=== PATIENT | female | born 1955 | race Two or more races ===

== ENCOUNTER 2020-05-24 13:24 | Outpatient (REF) | payer OTHER, SELFPAY ==
[2020-05-24 17:24] LABS: COVID-19 Test Negative (Negative)
== END 2020-05-24 13:25 | disposition home or self-care (01) ==
LOC: HO.LAB 13:24
PROVIDERS: PCP Internal Medicine; Visit Provider Internal Medicine
DX: Z20.828 Contact with and (suspected) exposure to other viral communicable diseases (principal)
CPT/HCPCS: 87635

== ENCOUNTER 2020-06-01 07:32 | Outpatient (REF) | payer OTHER, SELFPAY | END 2020-06-01 07:33 | disposition home or self-care (01) | LOC: HO.LAB 07:32 | PROVIDERS: Visit Provider Internal Medicine | DX: Z20.828 Contact with and (suspected) exposure to other viral communicable diseases (principal) | CPT/HCPCS: U0003 ==

== ENCOUNTER 2020-06-01 07:36 | Outpatient (REF) | payer OTHER, SELFPAY | END 2020-06-01 07:37 | disposition home or self-care (01) | LOC: HO.LAB 07:36 | PROVIDERS: Visit Provider Internal Medicine | DX: Z13.89 Encounter for screening for other disorder (principal) ==

== ENCOUNTER → 2020-07-04 09:41 | Outpatient (BNVA) | payer OTHER, SELFPAY | PROVIDERS: PCP Internal Medicine; Visit Provider Internal Medicine Cardiovascular Disease | DX: Z76.89 Persons encountering health services in other specified circumstances (principal) ==

== ENCOUNTER 2020-07-31 08:12 | Outpatient (REF) | payer OTHER, SELFPAY ==
[2020-07-31 08:50] LABS: MANUAL DIFF FLAG NO
[2020-07-31 08:56] LABS: Basophils Percent Auto 0.5 % (0-2); Eosinophils Absolute Auto 0.1 X10*3/uL (0.0-0.4); Hemoglobin 13.4 g/dl (12.0-16.0); Imm Gran Abs Auto 0.02 X10*3/uL (0.00-0.03); Imm Gran Pct Auto 0.4 % (0.0-0.4); Lymphocytes Absolute Auto 1.9 X10*3/uL (1.2-4.9); Lymphocytes Percent Auto 33.9 % (20-40); Mean Corpuscular HGB Conc 31.9 g/dl (31.0-35.0); Mean Corpuscular Hemoglobin 30.9 pg (27.0-33.0); Mean Corpuscular Volume 96.8 fL (80-98); Mean Platelet Volume 9.6 fL (9.4-12.3); Monocytes Absolute Auto 0.5 X10*3/uL (0.1-1.2); Monocytes Percent Auto 9.6 % (2-11); Neutrophils Percent Auto 53.6 % (45-73); Platelet Count 211 X10*3/uL (160-400); Red Blood Count 4.34 X10*6/uL (4.20-5.50); Red Cell Distribution Width 11.4 % (11.0-16.0); White Blood Count 5.6 X10*3/uL (4.8-10.8)
[2020-07-31 09:24] LABS: Alanine Aminotransferase 22 U/L (0-31); Anion Gap 11 (12-20); Aspartate Amino Transferase 23 U/L (5-31); Blood Urea Nitrogen 15 mg/dL (9-16); Calcium 9.1 mg/dL (8.4-10.2); Carbon Dioxide 27 mmol/L (22-29); Chloride 106 mmol/L (96-108); Cholesterol 138 mg/dL; Estimated Glomerular Filt Rate > 60; Glucose Random 125 mg/dL (60-115); HDL Cholesterol 48 mg/dL; LDL Cholesterol Calculated 70 mg/dl; Potassium 4.7 mmol/l (3.3-5.1); Sodium 139 mmol/L (135-145); Triglycerides 102 mg/dL
[2020-07-31 09:35] LABS: Glucose Urine UA NEG (NEG); Leukocyte Esterase Urine NEG (NEG); Nitrite Urine NEG (NEG); PH 5.5 (5.0-8.0); Urine Blood 1+ (NEG); Urine Ketones NEG (NEG); Urine Protein NEG (NEG-TRACE)
[2020-07-31 09:36] LABS: Appearance Urine CLEAR; Color Urine YELLOW
[2020-07-31 09:57] LABS: Mucus Urine TRACE /LPF; RBC Urine 0-2 /HPF (0); Squamous Epithelial Cell Urine TRACE /LPF; WBC Urine 0 /HPF (0-4)
== END 2020-07-31 08:13 | disposition home or self-care (01) ==
LOC: HO.LAB 08:12
PROVIDERS: Visit Provider Internal Medicine
DX: Z00.00 Encounter for general adult medical examination without abnormal findings (principal)
CPT/HCPCS: 36415; 80048; 80061; 81001; 84443; 84450; 84460; 85025

== ENCOUNTER 2020-08-20 13:46 | Outpatient (REF) | payer OTHER, SELFPAY ==
--- NOTE | 2020-08-20 13:56 | XR_ITS ---
EXAMINATION: XR CHEST CLINICAL INFORMATION: Chronic cough. COMPARISON: Chest 12/16/2010 TECHNIQUE: 2 views of the chest were obtained. FINDINGS: The lungs are well-expanded and clear of acute process. The heart size and prevascular is normal. There is mild dextroscoliosis upper/mid dorsal spine. No lytic process. The soft tissues are unremarkable. XR/XR chest 2V IMPRESSION: Unremarkable chest exam.
== END 2020-08-20 13:47 | disposition home or self-care (01) ==
LOC: HO.XRAY 13:46
PROVIDERS: PCP Internal Medicine; Visit Provider Internal Medicine
DX: R05 Cough (principal)
CPT/HCPCS: 71046

== ENCOUNTER 2020-12-25 15:50 | Outpatient (REF) | payer OTHER, SELFPAY ==
--- NOTE | ~2020-12-25 | MM_ITS ---
EXAMINATION: MM SCREENING DIGITAL BREAST TOMOSYNTHESIS, BILATERAL CLINICAL INFORMATION: Screening. Asymptomatic. The lifetime risk of breast cancer based on the Tyrer-Cuzick Model is 4%. COMPARISON: Mammography: 02/09/2018, 10/06/2016, 06/05/2015 TECHNIQUE: Digital breast tomosynthesis is performed in both the craniocaudal and mediolateral oblique views along with computer-aided detection (CAD). Synthesized 2D images are generated from the tomosynthesis. Additional right CC view is provided. FINDINGS: There are scattered areas of fibroglandular density (ACR BI-RADS breast composition Category b). There are no significant masses, abnormal calcifications, or other abnormalities. There is chronic bilateral nipple retraction similar to prior studies. Again, there are scattered benign round, vascular, and rim calcifications, greater on left. The axilla are unremarkable. MM/MM tomosynthesis screening BI IMPRESSION: No mammographic evidence of malignancy. ASSESSMENT: BI-RADS 2: Benign RECOMMENDATION: Routine annual mammography screening. This patient's information was entered into a reminder system with a target due date for their next mammogram.
== END 2020-12-25 15:51 | disposition home or self-care (01) ==
LOC: HO.MAMMO 15:50
PROVIDERS: Visit Provider Internal Medicine
DX: Z12.31 Encounter for screening mammogram for malignant neoplasm of breast (principal)
CPT/HCPCS: 77063; 77067

== ENCOUNTER 2021-05-03 08:50 | Outpatient (REF) | payer OTHER, SELFPAY ==
[2021-05-03 09:28] LABS: COVID-19 Test Negative (Negative)
== END 2021-05-03 08:51 | disposition home or self-care (01) ==
LOC: HO.LAB 08:50
PROVIDERS: PCP Internal Medicine; Visit Provider Internal Medicine
DX: J02.9 Acute pharyngitis, unspecified (principal); Z20.822 Contact with and (suspected) exposure to COVID-19
CPT/HCPCS: 36415; 87635

== ENCOUNTER → 2021-06-04 09:38 | Outpatient (BNVA) | payer OTHER, SELFPAY | PROVIDERS: PCP Internal Medicine; Referring Provider Internal Medicine; Visit Provider Internal Medicine Cardiovascular Disease | DX: I25.10 Atherosclerotic heart disease of native coronary artery without angina pectoris (principal); I10 Essential (primary) hypertension | CPT/HCPCS: 93005 ==

== ENCOUNTER 2021-06-23 09:01 | Emergency (ER) | payer OTHER, SELFPAY ==
--- NOTE | ~2021-06-23 | CT_ITS ---
EXAMINATION: CT HEAD WITHOUT CONTRAST CLINICAL INFORMATION: Dizziness COMPARISON: Previous head CT August 2014 TECHNIQUE: Contiguous axial imaging was performed from the skull base to vertex without intravenous administration of contrast. This CT examination was performed using dose optimization techniques as appropriate, variously including the following: *Automated exposure control *Adjustment of mA and/or kV according to patient size (this includes techniques or standardized protocols for targeted exams where dose is matched to indication/reason for exam; i.e. extremities or head) *Use of iterative reconstruction technique DLP: 620 mGy-cm FINDINGS: There is no evidence of acute intracranial hemorrhage or territorial infarction. No abnormal mass effect or midline shift is seen. Diaz to white matter differentiation is well preserved. No extra-axial fluid collections are identified. The ventricles are normal in size. There is no abnormal attenuation within the brain parenchyma. The osseous structures and soft tissues are normal. The mastoid air cells and visualized portions of the paranasal sinuses are clear. CT/CT head/brain wo con IMPRESSION: Unremarkable exam.
[2021-06-23 09:59] VITALS: BP 184/73; PULSE 60; RESP 18; TEMP 36.5; O2SAT 95; BMI 29.2
--- NOTE | 2021-06-23 11:11 | ECG_ITS ---
Test Reason : DIZZINESS Blood Pressure : / mmHG Vent. Rate : 060 BPM Atrial Rate : 060 BPM P-R Int : 154 ms QRS Dur : 086 ms QT Int : 424 ms P-R-T Axes : 061 014 020 degrees QTc Int : 424 ms Normal sinus rhythm Septal infarct (cited on or before 16-DEC-2010) Abnormal ECG When compared with ECG of 10-MAR-2019 19:15, No significant change was found Referred By: Gerardo Mccormack Electronically Signed By:AVILA GARCIA MD
--- NOTE | 2021-06-23 11:12 | ED.DIZZY ---
HPI - Dizziness General Chief Complaint: Dizziness Stated Complaint: Dizziness/abd pain Time Seen by Provider: 06/23/21 11:05 Source: patient Mode of arrival: ambulatory Limitations: no limitations History of Present Illness HPI Narrative: This is 66 years old of female presented to the emergency department with a chief complaint of dizziness she describes the dizziness as vertigo, symptoms started on about 4 days ago, the denies any vomiting diarrhea. MD elicited complaint: dizziness Onset (ago): day(s) (4) Timing: gradual onset Description: room spinning History of similar symptoms: No Exacerbating factors: nothing Relieving factors: nothing Related Data Home Medications Medication Instructions Recorded Confirmed bupropion HCl 300 mg 24 hr tablet, 300 mg PO DAILY 07/04/20 06/04/21 extended release cholecalciferol (vitamin D3) 25 25 mcg PO DAILY 07/04/20 06/04/21 mcg (1,000 unit) capsule loratadine 10 mg tablet 10 mg PO DAILY PRN 07/04/20 06/04/21 melatonin 1 mg tablet 0.5 mg PO BEDTIME 07/04/20 06/04/21 metoprolol succinate 100 mg 100 mg PO DAILY 07/04/20 06/04/21 tablet,extended release 24 hr omega-3 fatty acids 1,000 mg 1,000 mg PO DAILY 07/04/20 06/04/21 capsule (Fish Oil Concentrate) simvastatin 40 mg tablet 40 mg PO DAILY 07/04/20 06/04/21 Previous Rx's Medication Instructions Recorded lisinopril 10 mg tablet 10 mg PO DAILY 90 Days #90 tab 06/11/21 meclizine 25 mg tablet 25 mg PO TID PRN #15 tab 06/23/21 Allergies Allergy/AdvReac Type Severity Reaction Status Date / Time No Known Allergies Allergy Verified 06/23/21 10:02 Review of Systems Review of Systems: Yes all other systems are reviewed and are negative Constitutional: Constitutional: Denies frequent falls and Denies headache(s) Eyes: Eyes: Denies blurry vision, Denies change in vision, Denies decreased night vision and Denies diplopia ENT: Denies headache(s) Cardiovascular: Cardiovascular: Denies syncope, Denies rapid heart rate and Denies lightheadedness Respiratory: Respiratory: Reports no additional respiratory complaints Gastrointestinal: Gastrointestinal: Denies abdominal pain Neurologic: Denies confusion, Denies syncope, Denies frequent falls and Denies headache(s) Psychiatric: Psychiatric: Denies confusion [facility] Past Medical History Medical History HTN (hypertension) Hyperlipemia Myocardial infarct Surgical History H/O tubal ligation Hx of cardiac cath Hx of tonsillectomy Family History Family History (Updated 07/01/20 @ 11:05 by MARYCHUY Ribeiro) Father CVD (cardiovascular disease) Mother CVD (cardiovascular disease) Social History Social History (Updated 07/04/20 @ 09:54 by MARYCHUY Ribeiro) Alcohol intake: never Patient Tobacco Use Status: Never used Tobacco Use of substances other than those prescribed or required for medical reasons: No Advance Directives: No Advance Directives Information Provided: Yes Physical Exam Vital Signs: Vital Signs: Last Vital Signs Temp 97.7 F 06/23/21 09:59 Pulse 60 06/23/21 09:59 Resp 18 06/23/21 09:59 BP 182/87 H 06/23/21 11:38 Pulse Ox 95 06/23/21 09:59 Body Mass Index 29.2 Const: Other: On examination she looks well she has no toxic-appearing good she is not in distress she testing with her cellphone General: No confusion Nutritional Appearance: average body habitus Orientation/consciousness: No confusion HENMT: Other: To the head eyes ears nose and throat shows no nystagmus, pupils are equally reactive Mouth: Normal oral and palatal mucosa present Neck: Other: Neck is supple Neck: Yes full ROM Chest: Chest palpation & inspection: normal inspection of the chest Resp: Effort & Inspection: normal respiratory effort Auscultation: clear to auscultation bilaterally Cardio: Other: Heart exam is shows a regular rate and rhythm a no murmur GI: Other: Abdomen is soft not tender Skin: General skin exam: no rashes or lesions noted Rashes: no rashes Neuro: Other: Note exam is shows the patient awake alert oriented x3 she has a normal gait patient has a normal [id number], no nystagmus, strength is within normal limit and neuro exam is normal General: No confusion Course Reevaluation(s) Reevaluation #1: I re-examined the patient about 12:27 she is feeling better , workup is negative dizziness is better ,at this point will discharge the patient home , she will follow-up with her primary care physician TOMASZ - Arabella TOLBERT Narrative Medical decision making narrative: This is a 66 years old the wound presented with dizziness described as vertigo we will get a baseline CBC chemistry and electrocardiogram and neuro exam is normal I anticipate discharge if the above tests are normal Lab Data Result diagrams: 06/23/21 11:45 06/23/21 11:45 Labs: Lab Results 06/23/21 06/23/21 06/23/21 Range/Units 11:45 11:45 11:45 WBC 6.5 (4.8-10.8) X10*3/uL RBC 4.36 (4.20-5.50) X10*6/uL Hgb 13.5 (12.0-16.0) g/dl Hct 41.1 (37.0-47.0) % MCV 94.3 (80.0-98.0) fL MCH 31.0 (27.0-33.0) pg MCHC 32.8 (31.0-35.0) g/dl RDW 11.2 (11.0-16.0) % Plt Count 185 (160-400) X10*3/uL MPV 9.7 (9.4-12.3) fL Immature Gran % (Auto) 0.6 H (0.0-0.4) % Neut % (Auto) 61.6 (45-73) % Lymph % (Auto) 28.6 (20-40) % [place] % (Auto) 7.3 (2-11) % Eos % (Auto) 1.4 (0-4) % Baso % (Auto) 0.5 (0-2) % Lymph # (Auto) 1.9 (1.2-4.9) X10*3/uL [place] # (Auto) 0.5 (0.1-1.2) X10*3/uL Eos # (Auto) 0.1 (0.0-0.4) X10*3/uL Baso # (Auto) 0.0 (0.0-0.2) X10*3/uL Abs Immat Gran (auto) 0.04 H (0.00-0.03) X10*3/uL Absolute Neuts (auto) 4.0 (2.0-8.3) x10*3/uL Absolute Nucleated RBC 0.000 (0.0-0.012) X10*3/uL Nucleated RBC % (auto) 0.0 (0.0-0.2) /100WBC Sodium 142 (135-145) mmol/L Potassium 4.2 (3.3-5.1) mmol/L Chloride 109 H (96-108) mmol/L Carbon Dioxide 26 (22-29) mmol/L Anion Gap 11 L (12-20) BUN 11 (9-16) mg/dL Creatinine 0.78 (0.5-1.4) mg/dL Estim Creat Clear Calc 71.2 Estimated GFR > 60 Random Glucose 107 (60-115) mg/dL Calcium 9.1 (8.4-10.2) mg/dL Total Bilirubin 1.2 H (0.0-1.0) mg/dL AST 20 (5-31) U/L ALT 20 (0-31) U/L Alkaline Phosphatase 59 (39-117) U/L Troponin I High Sens 3.8 (<3.5-17.0) ng/L Total Protein 7.0 (6.5-8.0) g/dL Albumin 4.2 (3.5-5.0) g/dL Imaging Data head ct: Radiologist's impression: TECHNIQUE: Contiguous axial imaging was performed from the skull base to vertex without intravenous administration of contrast. This CT examination was performed using dose optimization techniques as appropriate, variously including the following: *Automated exposure control *Adjustment of mA and/or kV according to patient size (this includes techniques or standardized protocols for targeted exams where dose is matched to indication/reason for exam; i.e. extremities or head) *Use of iterative reconstruction technique DLP: 620 mGy-cm FINDINGS: There is no evidence of acute intracranial hemorrhage or territorial infarction. No abnormal mass effect or midline shift is seen. Diaz to white matter differentiation is well preserved. No extra-axial fluid collections are identified. The ventricles are normal in size. There is no abnormal attenuation within the brain parenchyma. The osseous structures and soft tissues are normal. The mastoid air cells and visualized portions of the paranasal sinuses are clear. ? CT/CT head/brain wo con IMPRESSION: Unremarkable exam. Dictated By: Thu Valle MD Signed ECG Data ECG interpretation date: 06/23/21 Pacemaker model: NSR 60 no ischemic changes Discharge Plan Discharge Clinical Impression: Dizziness Patient Disposition: Home, Self-Care Instructions: Dizziness (ED) Prescriptions: New meclizine 25 mg tablet 25 mg PO TID PRN (Reason: dizziness) Qty: 15 RF: 0 No Action lisinopril 10 mg tablet 10 mg PO DAILY 90 Days Qty: 90 RF: 3 metoprolol succinate 100 mg tablet extended release 24 hr 100 mg PO DAILY RF: 0 bupropion HCl 300 mg tablet extended release 24 hr 300 mg PO DAILY RF: 0 simvastatin 40 mg tablet 40 mg PO DAILY RF: 0 loratadine 10 mg tablet 10 mg PO DAILY PRN (Reason: allergies) RF: 0 omega-3 fatty acids [Fish Oil Concentrate] 1,000 mg capsule 1,000 mg PO DAILY RF: 0 cholecalciferol (vitamin D3) 25 mcg (1,000 unit) capsule 25 mcg PO DAILY RF: 0 melatonin 1 mg tablet 0.5 mg PO BEDTIME RF: 0 Referrals: Tonie Cheema MD [Primary Care Provider] - 2 days Stand Alone Forms: Work/School Release
[2021-06-23 11:38] VITALS: BP 182/87
[2021-06-23 11:49] LABS: MANUAL DIFF FLAG NO
[2021-06-23 11:51] LABS: Basophils Percent Auto 0.5 % (0-2); Eosinophils Absolute Auto 0.1 X10*3/uL (0.0-0.4); Eosinophils Percent Auto 1.4 % (0-4); Hematocrit 41.1 % (37.0-47.0); Hemoglobin 13.5 g/dl (12.0-16.0); Imm Gran Abs Auto 0.04 X10*3/uL (0.00-0.03); Imm Gran Pct Auto 0.6 % (0.0-0.4); Lymphocytes Absolute Auto 1.9 X10*3/uL (1.2-4.9); Lymphocytes Percent Auto 28.6 % (20-40); Mean Corpuscular HGB Conc 32.8 g/dl (31.0-35.0); Mean Corpuscular Volume 94.3 fL (80.0-98.0); Mean Platelet Volume 9.7 fL (9.4-12.3); Monocytes Absolute Auto 0.5 X10*3/uL (0.1-1.2); Monocytes Percent Auto 7.3 % (2-11); Neutrophils Percent Auto 61.6 % (45-73); Platelet Count 185 X10*3/uL (160-400); Red Blood Count 4.36 X10*6/uL (4.20-5.50); Red Cell Distribution Width 11.2 % (11.0-16.0); White Blood Count 6.5 X10*3/uL (4.8-10.8)
[2021-06-23 12:09] LABS: Alanine Aminotransferase 20 U/L (0-31); Albumin Level 4.2 g/dL (3.5-5.0); Alkaline Phosphatase 59 U/L (39-117); Anion Gap 11 (12-20); Aspartate Amino Transferase 20 U/L (5-31); Bilirubin Total 1.2 mg/dL (0.0-1.0); Blood Urea Nitrogen 11 mg/dL (9-16); Calcium 9.1 mg/dL (8.4-10.2); Carbon Dioxide 26 mmol/L (22-29); Chloride 109 mmol/L (96-108); Creatinine Clr Calc Pharmacy 71.2; Estimated Glomerular Filt Rate > 60; Glucose Random 107 mg/dL (60-115); Potassium 4.2 mmol/L (3.3-5.1); Sodium 142 mmol/L (135-145)
[2021-06-23 12:11] LABS: Troponin-I High Sensitivity 3.8 ng/L (<3.5-17.0)
== END 2021-06-23 13:02 | disposition home or self-care (01) ==
PROVIDERS: Emergency Provider Emergency Medicine; PCP Internal Medicine
DX: R42 Dizziness and giddiness (principal); I10 Essential (primary) hypertension; E78.5 Hyperlipidemia, unspecified; I25.2 Old myocardial infarction; Z79.899 Other long term (current) drug therapy; Z79.02 Long term (current) use of antithrombotics/antiplatelets
CPT/HCPCS: 36415; 70450; 80053; 84484; 85025; 93005; 99284

== ENCOUNTER 2021-07-21 14:30 | Outpatient (RCR) | payer OTHER, SELFPAY ==
[2021-07-17 14:01] VITALS: BP 144/88; PULSE 67
--- NOTE | 2021-07-17 14:57 | MHC.PT.EP ---
[facility] [place] Office [place] Office [place] Office [address] [place] [address] [phone] F: [phone] F: [phone] F: [phone] F: [phone] Physical Therapy Plan of Care Date of Evaluation: Date of Surgery: NA Diagnosis: Dizziness and giddiness Assessment: Caitlin is a 66 year old female who is referred to PT for dizziness and giddiness . Pt reports of having symptoms of room spinning dizziness for about 3-4 weeks. Her symptoms are present with rolling in the bed, looking up, down and walking. She initially had nausea and vomiting. Her symptoms only last for a few seconds. On PT examination she presented with intact saccades, smooth pursuit, visual tracking, head thrust, negative VBI and DVA- WNL. She presented with intact static and dynamic balance. She was positive for nystagmus and vertigo [facility]. She would benefit from skilled PT to address the aforementioned impairments. Frequency and Duration: The patient will be seen 2/week for 4 weeks Short Term Goals: Patient to be educated on symptoms and indications to return to therapy when needed min 4 weeks. Pt will be negative for nystagmus or reports of vertigo in all diagnostic positions bilaterally to resolution of BPPV in 4 weeks. Fpc Goals: Patient to be able to functionally move in all planes and directions without provocation of dizziness to show return to PLOF in 6 weeks. Treatment Plan: Modalities to reduce pain, spasms and effusion. Manual therapy to restore motion and function. Therapeutic exercise to improve strength and flexibility. Neuromuscular re-education for posture and balance. Therapeutic activities to return to functional activities of daily living. Electronically signed by: Mary Alice Patel PT DPT Please sign and return to therapist. Thank you for your referral.
--- NOTE | 2021-09-02 14:14 | MHC.PT.DC ---
[facility] [place] [facility] [place] [facility] [place] Office [address] [place] [address] [facility] [phone] F: [phone] F: [phone] F: [phone] F: [phone] Physical Therapy Discharge Report Diagnosis: Dizziness and giddiness Date of Surgery: NA Date of Evaluation: 07/17/21 Date of Discharge: 09/02/21 Treatments to Date: 2 Cancellations to Date: 0 No Shows to Date: Discharge Status: Achieved Goals Improved Function Discharge Summary: Caitlin has been asymptomatic for vestibular dysfunction over the last one month. She has therefore been d/c from therapy. Electronically signed by: Mary Alice Patel PT DPT Please sign and return to therapist. Thank you for your referral.
== END 2021-09-02 14:16 | disposition home or self-care (01) ==
LOC: HO.PT 14:30
PROVIDERS: PCP Internal Medicine; Visit Provider Internal Medicine
DX: R42 Dizziness and giddiness (principal)
CPT/HCPCS: 95992; 97112; 97161

== ENCOUNTER 2021-10-10 08:23 | Outpatient (REF) | payer OTHER, SELFPAY ==
[2021-10-10 09:40] LABS: Alanine Aminotransferase 21 U/L (0-31); Anion Gap 12 (12-20); Aspartate Amino Transferase 23 U/L (5-31); Blood Urea Nitrogen 11 mg/dL (9-16); Calcium 9.7 mg/dL (8.4-10.2); Carbon Dioxide 26 mmol/L (22-29); Chloride 106 mmol/L (96-108); Cholesterol 164 mg/dL; Estimated Glomerular Filt Rate > 60; Glucose Fasting 111 mg/dL (60-99); HDL Cholesterol 56 mg/dL; LDL Cholesterol Calculated 92 mg/dl; Potassium 4.8 mmol/L (3.3-5.1); Sodium 139 mmol/L (135-145); Triglycerides 82 mg/dL
[2021-10-10 10:08] LABS: Vitamin D 25-OH Total 57.3 ng/mL (>30)
== END 2021-10-10 08:24 | disposition home or self-care (01) ==
LOC: HO.LAB 08:23
PROVIDERS: PCP Internal Medicine; Visit Provider Internal Medicine
DX: Z00.01 Encounter for general adult medical examination with abnormal findings (principal); I10 Essential (primary) hypertension; I25.10 Atherosclerotic heart disease of native coronary artery without angina pectoris
CPT/HCPCS: 36415; 80048; 80061; 82306; 84450; 84460

== ENCOUNTER 2022-01-06 08:57 | Outpatient (REF) | payer OTHER, SELFPAY ==
--- NOTE | ~2022-01-06 | MM_ITS ---
EXAMINATION: BONE DENSITOMETRY CLINICAL INDICATION: Asymptomatic menopausal state. COMPARISON: This is the patient's baseline examination. TECHNIQUE: Using a [employer] DXA System (software version: 13.1) manufactured by [employer], dual-energy x-ray absorptiometry was performed of the lumbar spine and left hip. The images are of good technical quality. Summary results are attached. FINDINGS: AP SPINE L1-L3 (excluding L4): The data of L1-L4 has been changed to exclude the L4 vertebral body, because and sclerosis at this level may cause overestimation of lumbar spine density. BMD 0.972 g/cm2, Z-score -0.5, T-score -1.7, osteopenia. LEFT FEMUR, NECK: BMD 0.899 g/cm2, Z-score 0.3, T-score -1.0, normal. LEFT FEMUR, TOTAL: BMD 0.942 g/cm2, Z-score 0.5, T-score -0.5, normal. IDENTIFIED RISK FACTORS: Menopause. HISTORY OF FRACTURE: None listed. MEDICATIONS: Vitamin D. MM/XR DEXA axial skeleton IMPRESSION: 1. DIAGNOSIS: Osteopenia based on the lowest T-score value of -1.7 in the lumbar spine applying World Health Organization criteria. 2. 10-YEAR FRACTURE RISK PREDICTION, FRAX: Major osteoporotic fracture (clinical spine, forearm, hip or shoulder) 4.5%. Hip fracture 0.4%. 3. Treatment Recommendations: NOF guidelines recommend consideration for treatment in postmenopausal women and men age 50 and older presenting with the following: -A hip or vertebral (clinical or morphometric) fracture. -T-score less than or equal to -2.5 at the femoral neck or spine after appropriate evaluation to exclude secondary causes. -Low bone mass at the hip or spine and a 10-year fracture probability by FRAX of greater than or equal to 3% for hip fracture or greater than or equal to 20% for major osteoporotic fracture based on the [place] adapted WHO algorithm. 4. Other Recommendations: All treatment decisions require clinical judgment and consideration of individual patient factors, including patient preferences, comorbidities, previous drug use, risk factors not captured in the FRAX model (e.g. frailty, falls, vitamin D deficiency, increased bone turnover, interval significant decline in bone density) and possible under or overestimation of fracture risk by FRAX. Additional medical evaluation for secondary cause of low bone mineral density may be appropriate. FUTURE SCAN RECOMMENDATION: People with diagnosed cases of osteoporosis or at high risk for fracture should have regular bone mineral density tests. For patients eligible for Medicare, routine testing is allowed once every 2 years. The testing frequency can be increased to one year for patients who have rapidly progressing disease, those who are receiving or discontinuing medical therapy to restore bone mass, or have additional risk factors.
--- NOTE | ~2022-01-06 | MM_ITS ---
EXAMINATION: MM SCREENING DIGITAL BREAST TOMOSYNTHESIS, BILATERAL CLINICAL INFORMATION: Screening. Asymptomatic. The lifetime risk of breast cancer based on the Tyrer-Cuzick Model is 3.7%. COMPARISON: Mammography: December 25, 2020 and studies dating back to April 03, 2014 TECHNIQUE: Digital breast tomosynthesis is performed in both the craniocaudal and mediolateral oblique views along with computer-aided detection (CAD). Synthesized 2D images are generated from the tomosynthesis. FINDINGS: There are scattered areas of fibroglandular density (ACR BI-RADS breast composition Category b). There are no significant masses, abnormal calcifications, or other abnormalities. MM/MM tomosynthesis screening BI IMPRESSION: There are no significant changes from prior study. ASSESSMENT: BI-RADS 1: Negative RECOMMENDATION: Routine annual mammography screening. This patient's information was entered into a reminder system with a target due date for their next mammogram.
== END 2022-01-06 08:58 | disposition home or self-care (01) ==
LOC: HO.MAMMO 08:57
PROVIDERS: PCP Internal Medicine; Visit Provider Internal Medicine
DX: Z12.31 Encounter for screening mammogram for malignant neoplasm of breast (principal); Z13.820 Encounter for screening for osteoporosis; Z78.0 Asymptomatic menopausal state
CPT/HCPCS: 77063; 77067; 77080

== ENCOUNTER → 2022-06-03 13:29 | Outpatient (BNVA) | payer OTHER, SELFPAY | PROVIDERS: PCP Internal Medicine; Referring Provider Internal Medicine; Visit Provider Internal Medicine Cardiovascular Disease | DX: I25.10 Atherosclerotic heart disease of native coronary artery without angina pectoris (principal); I10 Essential (primary) hypertension; E78.5 Hyperlipidemia, unspecified; Z98.890 Other specified postprocedural states | CPT/HCPCS: 93005 ==

== ENCOUNTER 2022-06-29 08:19 | Outpatient (REF) | payer OTHER, SELFPAY ==
[2022-06-29 10:06] LABS: Alanine Aminotransferase 19 U/L (0-31); Aspartate Amino Transferase 21 U/L (5-31); Cholesterol 148 mg/dL; HDL Cholesterol 62 mg/dL; LDL Cholesterol Calculated 68 mg/dl; Triglycerides 92 mg/dL; Vitamin D 25-OH Total 49.8 ng/mL (>30)
== END 2022-06-29 08:20 | disposition home or self-care (01) ==
LOC: HO.LAB 08:19
PROVIDERS: PCP Internal Medicine; Referring Provider Internal Medicine Cardiovascular Disease; Visit Provider Internal Medicine
DX: I25.10 Atherosclerotic heart disease of native coronary artery without angina pectoris (principal); I10 Essential (primary) hypertension; E78.5 Hyperlipidemia, unspecified; Z86.59 Personal history of other mental and behavioral disorders
CPT/HCPCS: 36415; 80061; 82306; 84450; 84460

== ENCOUNTER 2022-10-06 07:40 | Outpatient (REF) | payer MEDICARE, SELFPAY ==
[2022-10-06 08:44] LABS: Alanine Aminotransferase 23 U/L (0-31); Anion Gap 10 (12-20); Aspartate Amino Transferase 20 U/L (5-31); Blood Urea Nitrogen 14 mg/dL (9-16); Calcium 9.2 mg/dL (8.4-10.2); Carbon Dioxide 28 mmol/L (22-29); Chloride 108 mmol/L (96-108); Cholesterol 155 mg/dL; Estimated Glomerular Filt Rate > 60; Glucose Fasting 108 mg/dL (60-99); HDL Cholesterol 55 mg/dL; LDL Cholesterol Calculated 86 mg/dl; Potassium 4.9 mmol/L (3.3-5.1); Sodium 141 mmol/L (135-145); Triglycerides 72 mg/dL
[2022-10-06 09:02] LABS: Vitamin D 25-OH Total 42.2 ng/mL (>30)
== END 2022-10-06 07:41 | disposition home or self-care (01) ==
LOC: HO.LAB 07:40
PROVIDERS: PCP Internal Medicine; Visit Provider Internal Medicine
DX: I25.10 Atherosclerotic heart disease of native coronary artery without angina pectoris (principal); I10 Essential (primary) hypertension; E78.5 Hyperlipidemia, unspecified
CPT/HCPCS: 36415; 80048; 80061; 82306; 84450; 84460

== ENCOUNTER 2022-10-08 12:32 | Outpatient (AMB) | payer MEDICARE, SELFPAY ==
--- NOTE | 2022-10-08 13:05 | A.OFFPC_ITS ---
Vital Signs 10/08/22 13:06 Height 5 ft 4 in Weight 165 lb BMI 28.3 BP 140/80 H Blood Pressure Location Rt brachial Position Sitting Pulse 58 Pulse Source Pulse Oximeter Pulse Oximetry (%) 98 Oxygen Delivery Method Room Air Intake Visit Reasons: Annual Intake Note: Pt is here today for her PE Allergies No Known Allergies Allergy (Verified 10/08/22 13:41) Medication List - Last Reconciled 10/08/22 by Tonie Cheema MD aspirin (Adult Low Dose Aspirin) 81 mg PO DAILY atorvastatin 40 mg PO DAILY buspirone 5 mg PO TID cholecalciferol (vitamin D3) 25 mcg PO DAILY lisinopril 10 mg PO DAILY metoprolol succinate ER 100 mg PO DAILY zolpidem 10 mg PO BEDTIME PRN Tobacco use date assessed: 10/08/22 Fall risk assessment: No Falls in past year Last assessed Fall Risk: 10/08/22 HPI Annual HPI Details 68-year-old lady here today for her phys ical exam. She has history of anxiety disorder currently stable controlled on buspirone 5 mg taken 3 times a day, takes zolpidem as needed for insomnia. She has dyslipidemia currently on atorvastatin 40 mg daily and hypertension on lisinopril 20 mg daily and metoprol ol 100 mg once a day. She is due for screening mammogram, has an appointment later this year, and had a bone density scan done 01/06/2022 which showed presence of beginning osteopenia in lumbar spine. No history of fractures. She has history of tubular adenoma removed on colonoscopy [place] [address] Dupont and has diverticulosis and internal hemorrhoids. She also had an upper endoscopy done at that time which showed presence of hiatal hernia [facility] Medical History (Updated 04/09/23 @ 11:02 by Tonie Cheema MD) Impaired fasting glucose History of adenomatous polyp of colon Osteopenia of lumbar spine Insomnia disorder, with non-sleep disorder mental comorbidity Dyslipidemia Anxiety and depression Postmenopause Positional lightheadedness HTN (hypertension) Myocardial infarct Surgical History (Updated 04/09/23 @ 10:54 by Tonie Cheema MD) Hx of colonoscopy H/O tubal ligation Hx of tonsillectomy Hx of cardiac cath Family History Father CVD (cardiovascular disease) Substance use disorder Mother CVD (cardiovascular disease) Brother Substance use disorder Mental health disorder Son Substance use disorder Social History Housing: House Alcohol intake: never Patient Tobacco Use Status: Former Tobacco user e-Cigarette/Vaping Use: Never Used service: No Current occupational status: employed and retired Cognitive needs: No Hearing needs: No Vision needs: Yes Female Reproductive History Menstrual Date of last Bone Density Screenin01/06/22 Questionnaire Thrive Questionnaire Date Thrive assessed: 08/28/22 AUDIT C Alcohol Use Questionnaire (AUDIT-C) 1. How often do you have a drink containing alcohol?: Monthly or less 2. How many drinks containing alcohol do you have on a typical day when you are drinking?: 1 or 2 3. How often do you have six or more drinks on one occasion?: Never Total Score: 1 EDDIE-7 AMB Questionnaire EDDIE-7 Date EDDIE - 7 assessed: 08/28/22 Source: Developed by Drs. Fahad Torres, Ellie Unger, Van Peterson and colleagues, with an educational donavan from [employer]. Review of Systems Const Denies body aches, Denies fatigue, Denies fever(s), Denies headache(s) and Denies weakness Eyes Denies change in vision ENT Denies dizziness, Denies headache(s), Denies nasal congestion, Denies nasal discharge and Denies sore throat Card Denies chest pain, Denies lightheadedness, Denies palpitations and Denies dyspnea Resp Denies chest congestion, Denies cough, Denies dyspnea and Denies wheezing GI Denies abdominal pain, Denies change in bowel habits and Denies heartburn Denies hematuria, Denies urinary frequency, Denies dysuria and Denies urinary u rgency Musc Reports no additional complaints Skin/Breast Denies breast swelling, Denies breast pain, Denies breast mass, Denies lesions and Denies rash Neuro Denies dizziness, Denies headache(s) and Denies weakness Psych Reports no additional complaints Endo Denies fatigue, Denies polydipsia, Denies polyuria and Denies palpitations Preston/Lymph Denies easy bruising Aller/Immun Denies seasonal rhinorrhea and Denies wheezing Physical exam (Primary Care) Vital Signs: Last Vital Signs Pulse 58 10/08/22 13:06 BP 140/80 H 10/08/22 13:06 Pulse Ox 98 10/08/22 13:06 Oxygen Delivery Method Room Air 10/08/22 13:06 BMI result Body Mass Index 28.3 Tobacco/Smoking Status: Tobacco use Status Tobacco use date assessed 10/08/22 10/08/22 13:09 Patient Tobacco Use Status Former Tobacco user 10/08/22 13:09 e-Cigarette/Vaping Use Never Used 10/08/22 13:09 Thrive Assessment: Date of Thrive Assessment Date Thrive assessed 08/28/22 10/08/22 13:09 Advance Care Planning discussion: Completed/Scanned (MOLST) Date of discussion: 10/08/22 Who was present: Patient Forms completed: MOLST Time spent: 16-45 minutes Actual minutes spent: 16 Const Other: Alert oriented x3, no acute cardiorespiratory distress noted ambulatory with normal gait Orientation/consciousness: patient oriented x3 HENMT Head: Yes normocephalic Ears: hearing grossly normal bilaterally, external ears normal, TM's normal bilaterally and EAC's normal General nose exam: No nasal polyps present Face and sinus: Yes face symmetric Mouth: Normal oral and palatal mucosa present, oropharynx normal and moist mucous membranes Eyes General: appearance normal, both eyes and all related structures Neck Neck: Yes full ROM, Yes no lymphadenopathy and Yes supple Chest Breast/axilla palpation: normal palpation of the breasts and normal palpation of the axillae Resp Auscultation: clear to auscultation bilaterally Cardio Other: S1-S2 present regular rate and rhythm GI Inspection: Yes normal to inspection Palpation (GI): Soft to palpation, nontender, no guarding and no masses Auscultation: normal bowel sounds Back/Spine/Pelvis Back: No back tenderness Skin General skin exam: no rashes or lesions noted Neuro General: patient oriented x3, gait normal, moves all extremities, Normal light touch and pain sensation, no focal motor deficits and CN's II-XI intact bilaterally Extrem General: Yes full ROM, Yes no joint enlargement, Yes no clubbing, cyanosis or edema and Yes normal gait Psych Appearance: grossly normal and well kempt Mental Status: mental status grossly normal Speech and movement: Normal speech and movement present Affect: normal affect Attitude: cooperative Thought process: Normal thought process present Immunizations pneumoc 20-lara conj-dip cr(PF) 0.5 mL IM syringe Performing Provider: Tonie Cheema MD [place] [facility] Administered by: Laquita Rodriguez CMA on 10/08/22 14:02 Dose Route Admin Location Dispensed Lot Number Expiration Date NDC Bar Welder 0.5 mL IM Right Deltoid 0.5 mL [id number] 11/30/23 5088-5563-89 [employer]/PFIZER VIS Given Date VIS Provided VIS Publication Date 10/08/22 Single Vaccine 21 Eligibility Eligibility Date Funding Source Not VFC Eligible 10/08/22 Private Results Reviewed Results Reviewed: Name: Caitlin Carlos Age/Sex: 67/F : 1955 Unit#: [id number] Attend Dr: Tonie Cheema MD Re10/06/22 Status: DEP [facility] Dis[facility]: SPEC : [id number] LUKE: 10/06/22 STATUS: COMP REQ : [id number] RECD: 10/06/[address]: Tonie Cheema MD COMP: 10/06/22 ENTERED: 10/06/[address]: ORDERED: Met Prof Fast, AST, ALT, Lipid Panel, Vitamin D 25-OH Test Result Flag Reference Site Sodium 141 135-145 mmol/L Potassium 4.9 3.3-5.1 mmol/L CL 108 96-108 mmol/L CO2 28 22-29 mmol/L Gap 10 L 12-20 BUN 14 9-16 mg/dL Creat 0.73 0.5-1.4 mg/dL EGFR > 60 NOTE: For -[place] individuals, multiply the result by 1.210. Chronic Kidney Disease: Estimated GFR < 60 mL/min/1.73m2 Severe Kidney Disease: Estimated GFR < 15 mL/min/1.73m2 FBS 108 H 60-99 mg/dL A fasting glucose from 100-125 mg/dl is considered impaired (pre-diabetes). CA 9.2 8.4-10.2 mg/dL AST (GOT) 20 5-31 U/L ALT (GPT) 23 0-31 U/L Triglyceride 72 mg/dL Desirable Triglyceride: less than 150 mg/dL Borderline High Triglyceride 150-199 mg/dL High Triglyceride: 200-499 mg/dL Very High Triglyceride: greater than or equal to 5OO mg/dL Chol 155 mg/dL Desirable Cholesterol: less than 200 mg/dL Borderline High Cholesterol: 200-239 mg/dL High Cholesterol: greater than 239 mg/dL LDL Calculated 86 mg/dl Desirable LDL: less than 100 mg/dL Near Optimal/Above Optimal LDL: 110-129 mg/dL Borderline High LDL: 130-159 mg/dL High LDL: 160-189 mg/dL Very High LDL: greater than or equal to 190 mg/dL HDL 55 mg/dL Desirable HDL: greater than 40 mg/dL Note: This HDL assay may give artificially low results in patients with liver disease. Vit D 25-OH Tot 42.2 >30 ng/mL Health Based Reference Values* < 20 ng/mL Deficient 20-30 ng/mL Insufficient > 30 ng/mL Sufficient Assessment and Plan Assessment & Plan (1) Annual visit for general adult medical examination with abnormal findings: Code(s): Z00.01 - Encounter for general adult medical examination with abnormal findings Plan: Recommended dental visit every 6 months and regular eye exams, at least every 2 years. Take adequate calcium in diet and vitamin-D 3 at 2000 IU per cap once a day, in addition to weight-bearing exercises to help maintain good muscle tone and weight control. Instructed to do self-breast exam, and has an appointment to get her yearly mammogram later this year. Up-to-date with her bone density scan done a year ago. Up-to-date with her colonoscopy due [place] [address] Dupont. Reminded to get her yearly flu shot, and COVID booster Prevnar 20 given today (2) Insomnia disorder, with non-sleep disorder mental comorbidity: Code(s): G47.00 - Insomnia, unspecified Plan: Continue zolpidem as needed, advised to have a regular bedtime routine (3) Anxiety and depression: Code(s): F41.9 - Anxiety disorder, unspecified; F32.A - Depression, unspecified Plan: Continued on buspirone 5 mg 1 tablet 3 times a day, stable controlled on present treatment (4) Dyslipidemia: Code(s): E78.5 - Hyperlipidemia, unspecified Plan: Continue for 10 mg of atorvastatin daily in addition to adhering to low- cholesterol diet and exercise (5) Hypertension: Code(s): I10 - Essential (primary) hypertension Qualifiers: Hypertension type: primary hypertension Qualified Code(s): I10 - Essential (primary) hypertension Plan: Blood pressure goal is less than 130/80. Continue with lisinopril 10 mg daily and metoprolol succinate ER 100 mg once a day. Reinforced importance of following a low sodium diet, getting regular exercise, and lowering stress levels. (6) CAD (coronary artery disease): Code(s): I25.10 - Atherosclerotic heart disease of [place] coronary artery without angina pectoris Plan: Continue aspirin 81 mg daily, reinforced importance of following a low- cholesterol diet and getting regular exercise. (7) Advanced directives, counseling/discussion: Code(s): Z71.89 - Other specified counseling Plan: Initiated the conversation about Advanced Directives. Advanced Directives help patients prepare for current and future decisions about their medical treatment and place of care. Discussed with patient that it is a process where a patients current condition and prognosis are reviewed, their wishes for information regarding their illness are elicited, and likely medical dilemmas are presented and options discussed. MOLST form completed today, given a copy of her healthcare proxy form , wishes to discuss this with her family members 1st. The form can be amended as needed, reviewed yearly and make changes as needed (8) Osteopenia of lumbar spine: Code(s): M85.88 - Other specified disorders of bone density and structure, other site Plan: Stressed importance of adhering of getting a regular weight-bearing exercise, to strengthen bones and prevent further bone loss, take adequate calcium from dietary sources and continue taking vitamin D3 at 2000 units daily. Latest vitamin-D levels within normal limits (9) History of adenomatous polyp of colon: Code(s): Z86.010 - Personal history of colonic polyps Plan: Repeat screening colonoscopy again with Dr. Dupont in 2024 (10) Impaired fasting glucose: Code(s): R73.01 - Impaired fasting glucose Plan: Your fasting blood sugar was elevated above 100 mg/dL. Impaired glucose metabolism O2 at risk for developing diabetes mellitus type 2, as well as heart attack and stroke later on. Lifestyle changes at just weight loss, healthy eating habits, and regular exercise are important, and can prevent the progression to diabetes Orders: Orders Pneumococcal 20 Immunization 10/08/22 Z23 - Encounter for immunization Medications: Refilled zolpidem 10 mg PO BEDTIME PRN 14 tabs 0RF insomnia Coding Level of Care Code Est Pt Prev Care >65y(21360) Diagnoses Annual visit for general adult medical examination with abnormal findings Z00.01 Insomnia disorder, with non-sleep disorder mental comorbidity G47.00 Anxiety and depression F41.9; F32.A Dyslipidemia E78.5 Primary hypertension I10 Hypertension type: primary hypertension CAD (coronary artery disease) I25.10 Advanced directives, counseling/discussion Z71.89 Osteopenia of lumbar spine M85.88 History of adenomatous polyp of colon Z86.010 Impaired fasting glucose R73.01 Additional Codes Vital Signs *Quality* - Advance Care Planning discussion: Completed/Scanned ([id number]) Vital Signs *Quality* - Time spent: 16-45 minutes ([id number])
[2022-10-08 13:06] VITALS: BP 140/80; PULSE 58; O2SAT 98; BMI 28.3
== END 2022-10-08 15:22 | disposition home or self-care (01) ==
LOC: HO.HMGC 12:32
PROVIDERS: PCP Internal Medicine; Visit Provider Internal Medicine
DX: Z00.00 Encounter for general adult medical examination without abnormal findings (principal); F41.9 Anxiety disorder, unspecified; I10 Essential (primary) hypertension; Z86.010 Personal history of colon polyps; G47.00 Insomnia, unspecified; F32.A Depression, unspecified; Z23 Encounter for immunization; E78.5 Hyperlipidemia, unspecified; I25.10 Atherosclerotic heart disease of native coronary artery without angina pectoris; Z71.89 Other specified counseling; M85.88 Other specified disorders of bone density and structure, other site; R73.01 Impaired fasting glucose; Z00.01 Encounter for general adult medical examination with abnormal findings
CPT/HCPCS: 1123F; 90471; 90677; 99397; 99497

== ENCOUNTER 2023-01-08 10:11 | Outpatient (REF) | payer MEDICARE, SELFPAY ==
--- NOTE | ~2023-01-08 | MM_ITS ---
EXAMINATION: MM SCREENING DIGITAL BREAST TOMOSYNTHESIS, BILATERAL CLINICAL INFORMATION: Screening. Asymptomatic. The lifetime risk of breast cancer based on the Tyrer-Cuzick Model is 5%. COMPARISON: Mammography: 01/10/2022, 12/25/2020, 02/09/2018 TECHNIQUE: Digital breast tomosynthesis is performed in both the craniocaudal and mediolateral oblique views along with computer-aided detection (CAD). Synthesized 2D images are generated from the tomosynthesis. FINDINGS: There are scattered areas of fibroglandular density (ACR BI-RADS breast composition Category b). There are no significant masses, abnormal calcifications, or other abnormalities. Parenchymal pattern is similar to prior studies. There is no developing density or architectural abnormality. There are scattered bilateral benign round rim and vascular calcifications. The axilla and skin contours are unremarkable. No significant changes. MM/MM tomosynthesis screening BI IMPRESSION: No mammographic evidence of malignancy. ASSESSMENT: BI-RADS 2: Benign RECOMMENDATION: Routine annual mammography screening. This patient's information was entered into a reminder system with a target due date for their next mammogram.
== END 2023-01-08 10:12 | disposition home or self-care (01) ==
LOC: HO.MAMMO 10:11
PROVIDERS: PCP Internal Medicine; Visit Provider Internal Medicine
DX: Z12.31 Encounter for screening mammogram for malignant neoplasm of breast (principal)
CPT/HCPCS: 77063; 77067

== ENCOUNTER 2023-06-30 10:00 | Outpatient (AMB) | payer MEDICARE, SELFPAY ==
[2023-06-30 10:46] VITALS: BP 130/76; PULSE 82; BMI 28.7
--- NOTE | 2023-06-30 10:46 | A.OFFVIS_ITS ---
Intake Vital Signs 06/30/23 10:46 Height 5 ft 4 in Weight 167 lb 1.766 oz BMI 28.7 BP 130/76 Blood Pressure Location Lt brachial Position Sitting Pulse 82 Intake Visit Reasons: 1 year follow up Intake Note: 1 year follow up w/ EKG patients feels good. Support Teacher Required: No Accompanied by: Self / Same As Patient Allergies No Known Allergies Allergy (Verified 06/30/23 10:51) Medication List - Last Reconciled 06/30/23 by Yobany Salcido MD aspirin (Adult Low Dose Aspirin) 81 mg PO DAILY atorvastatin 40 mg PO DAILY buspirone 5 mg PO TID cholecalciferol (vitamin D3) 25 mcg PO DAILY lisinopril 10 mg PO DAILY metoprolol succinate ER 100 mg PO DAILY zolpidem 10 mg PO BEDTIME PRN HPI HPI Comments History of Present Illness Details Pleasant 68-year-old female here for follow-up. She has history of coronary artery disease and was seeing Dr. Fair in the past. In 2014 she had atypical chest pain and dyspnea and underwent exercise stress test. She was able to exercise for 10.1 Mets and developed some inferolateral ST changes with dyspnea. This led to cardiac catheterization which was done by Dr. Ware. Cath showed mild to moderate proximal left circumflex artery lesion. FFR across the left circumflex artery was normal. Since then she has been on medications and has been doing well. She said she had arm discomfort before cardiac catheterization and has not had any further pain. It appears she was under stress at that time because her from esophageal cancer before those events. Cardiac catheterization reviewed at [facility]. Today she returns for follow-up. She has been doing well. No chest pain or shortness of breath. Reviewed her fasting lipid panel an LDL levels are elevated we discussed about changing to atorvastatin 40 mg. 02/27/2023: She returns for follow-up. S he has been doing well. No chest discomfort shortness of breath. Blood pressure control is good. Her main complaint lower back pain. She said she was at her daughter's home where she was going up and down stairs which she started noticing some low back pain. She is asking whether this is related to statins. She has been using aspirin off and on and we discussed about regular use of aspirin given her known history of coronary disease. [facility] Medical History (Updated 04/09/23 @ 11:02 by Tonie Cheema MD) Impaired fasting glucose History of adenomatous polyp of colon Osteopenia of lumbar spine Insomnia disorder, with non-sleep disorder mental comorbidity Dyslipidemia Anxiety and depression Postmenopause Positional lightheadedness HTN (hypertension) Myocardial infarct Surgical History Hx of colonoscopy H/O tubal ligation Hx of tonsillectomy Hx of cardiac cath Family History Father CVD (cardiovascular disease) Substance use disorder Mother CVD (cardiovascular disease) Brother Substance use disorder Mental health disorder Son Substance use disorder Social History Housing: House Alcohol intake: never Patient Tobacco Use Status: Former Tobacco user e-Cigarette/Vaping Use: Never Used service: No Current occupational status: employed and retired Cognitive needs: No Hearing needs: No Vision needs: Yes Review of Systems Const Denies chills, Denies fatigue, Denies fever(s), Denies frequent falls, Denies weakness, Denies weight gain and Denies weight loss ENT Denies dizziness Card Denies chest pain, Denies leg edema, Denies lightheadedness, Denies palpitations, Denies dyspnea, Denies dyspnea on exertion, Denies orthopnea and Denies other (loss of consciousness) Resp Denies cough, Denies dyspnea and Denies dyspnea on exertion GI Denies hematochezia and Denies change in stool character Musc Denies abnormal gait, Denies muscle weakness, Denies numbness, Denies radiating pain into limb and Denies tingling Neuro Denies abnormal gait, Denies dizziness, Denies frequent falls, Denies numbness, Denies tingling and Denies weakness Endo Denies fatigue and Denies palpitations Physical Exam Vital Signs: Last Vital Signs Pulse 82 06/30/23 10:46 BP 130/76 06/30/23 10:46 BMI result Body Mass Index 28.7 GENERAL APPEARANCE: in no acute distress, pleasant. NECK: no carotid bruit, no jugular venous distention. SKIN: no suspicious lesions, warm and dry. HEART: no murmurs, regular rate and rhythm. LUNGS: clear to auscultation bilaterally. ABDOMEN: soft, nontender. EXTREMITIES: no edema. PERIPHERAL PULSES: equal. NEUROLOGIC: No gross deficits, AAO X 3 Office Procedures EKG Details: Sinus rhythm 82 beats per minute, normal axis, cannot rule out anterior infarct, QTC 450 milliseconds. [id number], Complete Assessment & Plan Assessment & Plan (1) CAD (coronary artery disease): Code(s): I25.10 - Atherosclerotic heart disease of [place] coronary artery without angina pectoris (2) Hypertension: Code(s): I10 - Essential (primary) hypertension Qualifiers: Hypertension type: primary hypertension Qualified Code(s): I10 - Essential (primary) hypertension (3) Dyslipidemia: Code(s): E78.5 - Hyperlipidemia, unspecified Plan Pleasant 68-year-old female who is here for follow-up. She has known history of coronary disease with circumflex stenosis which was-1 physiologic assessment in the past. She has no chest discomfort shortness of breath on follow-up. Blood pressure control is good. She is asking whether her low back pain is related to statins. I explained to her that it is very unlikely that these symptoms and due to statin therapy. We discussed and we will do a CPK level to show there is no muscle injury present. I have advised her to exercise and see this back pain improves. I have advised her to take aspirin daily. She will see us back in 1 year. Thank you for allowing me to participate in the care of your patient. Please feel free to contact me if you have any questions. Orders: Orders Creatine Kinase Total Today E78.5 - Hyperlipidemia, unspecified Coding Level of Care Code Est Pt Level 3 (00910) Diagnoses CAD (coronary artery disease) I25.10 Primary hypertension I10 Hypertension type: primary hypertension Dyslipidemia E78.5 CPT Codes EKG - CPT: [id number], Complete ([id number])
== END 2023-06-30 11:21 | disposition home or self-care (01) ==
PROVIDERS: PCP Internal Medicine; Visit Provider Internal Medicine Cardiovascular Disease
DX: I25.10 Atherosclerotic heart disease of native coronary artery without angina pectoris (principal); I10 Essential (primary) hypertension; E78.5 Hyperlipidemia, unspecified
CPT/HCPCS: 93010; 99213

== ENCOUNTER → 2023-06-30 10:00 | Outpatient (BNVA) | payer MEDICARE, SELFPAY | PROVIDERS: PCP Internal Medicine; Visit Provider Internal Medicine Cardiovascular Disease | DX: I25.10 Atherosclerotic heart disease of native coronary artery without angina pectoris (principal); I10 Essential (primary) hypertension; E78.5 Hyperlipidemia, unspecified | CPT/HCPCS: 93005; 99212 ==

== ENCOUNTER 2023-07-02 11:57 | Outpatient (REF) | payer MEDICARE, SELFPAY | END 2023-07-02 11:58 | disposition home or self-care (01) | LOC: HO.LAB 11:57 | PROVIDERS: PCP Internal Medicine; Visit Provider Internal Medicine Cardiovascular Disease | DX: E78.5 Hyperlipidemia, unspecified (principal) | CPT/HCPCS: 36415; 82550 ==

== ENCOUNTER 2023-07-19 15:22 | Outpatient (AMB) | payer MEDICARE, SELFPAY ==
[2023-07-19 15:22] VITALS: BP 140/90; PULSE 80; TEMP 36.4; O2SAT 96; BMI 28.5
--- NOTE | 2023-07-19 15:22 | MHC.OFFWIV ---
Intake Vital Signs 07/19/23 15:22 Height 5 ft 4 in Weight 166 lb BMI 28.5 BP 140/90 H Blood Pressure Location Lt brachial Position Sitting Pulse 80 Pulse Source Pulse Oximeter Temp 97.5 F Temp Source Temporal Artery Scan Pulse Oximetry (%) 96 Oxygen Delivery Method Room Air Intake Visit Reasons: EP wheezing labored breathing chills Intake Note: pt is here today for wheezing labored breathing chills started last wednesday Patient Tobacco Use Status: Former Tobacco user Allergies No Known Allergies Allergy (Verified 07/19/23 15:32) Do you need a note to return to daycare/school/sports/work: No HPI HPI Comments History of Present Illness Details Caitlin presents to the walk-in today for sick visit. C/O cough, wheezing, sore throat, sinus congestion for last 1 week. States today she started feeling a little better but for last 2 days she has been using nebulizer for wheezing. States cold has settled in her chest. Cough productive of only scant clear sputum. [facility] Medical History (Updated 07/19/23 @ 16:42 by Liz Chavez APRN, [employer]) Impaired fasting glucose History of adenomatous polyp of colon Osteopenia of lumbar spine Insomnia disorder, with non-sleep disorder mental comorbidity Dyslipidemia Anxiety and depression Postmenopause Positional lightheadedness HTN (hypertension) Myocardial infarct Surgical History Hx of colonoscopy H/O tubal ligation Hx of tonsillectomy Hx of cardiac cath Family History Father CVD (cardiovascular disease) Substance use disorder Mother CVD (cardiovascular disease) Brother Substance use disorder Mental health disorder Son Substance use disorder Social History Housing: House Alcohol intake: never Patient Tobacco Use Status: Former Tobacco user e-Cigarette/Vaping Use: Never Used service: No Current occupational status: employed and retired Cognitive needs: No Hearing needs: No Vision needs: Yes Review of Systems Const All systems reviewed & are unremarkable except as noted in HPI and below Physical Exam Vital Signs: Last Vital Signs Temp 97.5 F 07/19/23 15:22 Pulse 80 12/18/23 15:22 BP 140/90 H 12/18/23 15:22 Pulse Ox 96 07/19/23 15:22 Oxygen Delivery Method Room Air 07/19/23 15:22 BMI result Body Mass Index 28.5 General: awake, alert, oriented. Answers questions appropriately. Fully engaged in examination. Skin: warm, dry, intact HEENT: TMs intact bilaterally, no redness. Posterior pharynx without erythema or exudate. Sclera without icterus or injection. Cardiac: External chest normal in appearance. Respiratory: +cough. Faint expiratory wheezing. Abdomen: without gross distension. Neurological: Oriented to person, place, time and situation. Thought process intact. Psychiatric: Appropriate mood and affect. Good judgment and insight. Assessment & Plan Assessment & Plan (1) URI (upper respiratory infection): Code(s): J06.9 - Acute upper respiratory infection, unspecified (2) Wheezing on auscultation: Code(s): R06.2 - Wheezing Plan URI, no abx warranted. VS reviewed, stable. SARS-CoV2/FLU/RSV swab collected, results pending. Patient aware she will be called with results. Benzonatate 100mg po bid as needed Albuterol MDI as needed for cough/wheezing. Discussed option for prednisone, patient states her blood sugars are being monitored. She does not want to start prednisone at this time, will return for worsening symptoms. Rest, drink plenty of fluids, tylenol or motrin as needed. Follow up with pcp or in clinic for any new or worsening symptoms. Go to ER for worsening shortness of breath, chest pain, palpitations, weakness, dizziness. Orders: Orders SARS-CoV2/FLU/RSV Today J06.9 - Acute upper respiratory infection, unspecified Medications: New albuterol sulfate 90 mcg/actuation 2 puffs inhalation Q6H PRN 6.7 grams 0RF shortness of breath or wheezing benzonatate 100 mg PO BID PRN 20 caps 0RF cough Coding Level of Care Code Est Pt Level 3 (16592) Diagnoses URI (upper respiratory infection) J06.9 Wheezing on auscultation R06.2
== END 2023-07-19 17:13 | disposition home or self-care (01) ==
PROVIDERS: PCP Internal Medicine; Visit Provider Registered Nurse Emergency
DX: J06.9 Acute upper respiratory infection, unspecified (principal); R06.2 Wheezing
CPT/HCPCS: 99213

== ENCOUNTER 2023-07-19 16:35 | Outpatient (REF) | payer MEDICARE, SELFPAY | END 2023-07-19 16:36 | disposition home or self-care (01) | LOC: HO.LAB 16:35 | PROVIDERS: Visit Provider Registered Nurse Emergency | DX: Z13.89 Encounter for screening for other disorder (principal) ==

== ENCOUNTER 2023-07-20 11:43 | Outpatient (REF) | payer MEDICARE, SELFPAY ==
[2023-07-20 13:07] LABS: Influenza A PCR NEGATIVE (Negative); Influenza B PCR NEGATIVE (Negative); Resp Syncy Virus RNA Qual PCR NEGATIVE (Negative); SARS COV2 PCR INHOUSE NEGATIVE (Negative)
== END 2023-07-20 11:44 | disposition home or self-care (01) ==
LOC: HO.LAB 11:43
PROVIDERS: Visit Provider Registered Nurse Emergency
DX: Z11.52 Encounter for screening for COVID-19 (principal); J06.9 Acute upper respiratory infection, unspecified
CPT/HCPCS: 0241U

== ENCOUNTER 2023-08-13 09:59 | Outpatient (REF) | payer MEDICARE, SELFPAY ==
[2023-08-15 20:54] LABS: TS Negative Control Passed; TS Panel A 0; TS Panel B 0; TS Positive Control Passed; TSpotTB Negative (Negative)
== END 2023-08-13 10:00 | disposition home or self-care (01) ==
LOC: HO.HMGCLDS 09:59
PROVIDERS: Internal Medicine Cardiovascular Disease; PCP Internal Medicine; Visit Provider Internal Medicine
DX: E78.5 Hyperlipidemia, unspecified (principal); Z11.1 Encounter for screening for respiratory tuberculosis
CPT/HCPCS: 36415; 82550; 86481

== ENCOUNTER 2023-09-03 07:55 | Outpatient (REF) | payer MEDICARE, SELFPAY | END 2023-09-03 07:56 | disposition home or self-care (01) | LOC: HO.LAB 07:55 | PROVIDERS: PCP Internal Medicine; Visit Provider Internal Medicine Cardiovascular Disease | DX: R74.8 Abnormal levels of other serum enzymes (principal) | CPT/HCPCS: 36415; 82550 ==

== ENCOUNTER 2023-09-07 17:42 | Emergency (ER) | payer MEDICARE, SELFPAY ==
[2023-09-07 17:46] VITALS: BP 193/101; PULSE 78; RESP 18; TEMP 36.6; O2SAT 97; BMI 29.7
--- NOTE | 2023-09-07 17:53 | ED_ITS ---
HPI - Eye Problem General Chief complaint: Eye Problems Stated complaint: rt eye/vomiting blood last night/blood fr nose Time Seen by Provider: 09/07/23 17:50 Source: patient Mode of arrival: ambulatory History of Present Illness HPI Narrative: 68-year-old female with history of hypertension states that she was standing over the weekend and then states that on Wednesday she had some blood flecked phlegm, no issues on Wednesday and then on Wednesday once again noted some blood trace phlegm coughing as well as some irritation within her nose and then states that she then developed a red eye. She denies any pain in the eye currently and joao es any associated blurred vision or double vision or loss of vision. Related Data Home Medications Medication Instructions Recorded Confirmed cholecalciferol (vitamin D3) 25 25 mcg PO DAILY 07/04/20 06/30/23 mcg (1,000 unit) capsule aspirin 81 mg tablet,delayed 81 mg PO DAILY 01/09/22 06/30/23 release (Adult Low Dose Aspirin) latanoprost 0.005 % eye drops drp ophthalmic (eye) 07/19/23 Previous Rx's Medication Instructions Recorded zolpidem 10 mg tablet 10 mg PO BEDTIME PRN insomnia #14 10/08/22 tabs lisinopril 10 mg tablet 10 mg PO DAILY #90 tabs 02/23/23 buspirone 5 mg tablet 5 mg PO TID #90 tabs 03/23/23 atorvastatin 40 mg tablet 40 mg PO DAILY #90 tabs 07/02/23 metoprolol succinate 100 mg 100 mg PO DAILY #90 tabs 07/17/23 tablet,extended release 24 hr albuterol sulfate 90 mcg/actuation 2 puff inhalation Q6H PRN 07/19/23 aerosol inhaler shortness of breath or wheezing #6.7 grams benzonatate 100 mg capsule 100 mg PO BID PRN cough #20 caps 07/19/23 Allergies Allergy/AdvReac Type Severity Reaction Status Date / Time No Known Allergies Allergy Verified 07/19/23 15:32 Review of Systems Review of Systems: Pertinent positives and negatives as stated in HPI [facility] Past Medical History Source: nursing notes reviewed Medical History Impaired fasting glucose History of adenomatous polyp of colon Osteopenia of lumbar spine Insomnia disorder, with non-sleep disorder mental comorbidity Dyslipidemia Anxiety and depression Postmenopause Positional lightheadedness HTN (hypertension) Myocardial infarct Surgical History Hx of colonoscopy H/O tubal ligation Hx of tonsillectomy Hx of cardiac cath Family History Family History Father CVD (cardiovascular disease) Substance use disorder Mother CVD (cardiovascular disease) Brother Substance use disorder Mental health disorder Son Substance use disorder Social History Social History Housing: House Alcohol intake: never Patient Tobacco Use Status: Former Tobacco user e-Cigarette/Vaping Use: Never Used Advance Directives: No Advance Directives Information Provided: No service: No Current occupational status: employed and retired Cognitive needs: No Hearing needs: No Vision needs: Yes Physical Exam Vital Signs: Vital Signs: Last Vital Signs Temp 98 F 09/07/23 17:46 Pulse 78 09/07/23 17:46 Resp 18 09/07/23 17:46 BP 193/101 H 09/07/23 17:46 Pulse Ox 97 09/07/23 17:46 O2 Del Method Room Air 09/07/23 17:46 BMI result Body Mass Index 29.7 VITAL SIGNS: Reviewed. GENERAL: Well developed, well nourished, in no acute distress. HEAD: Normocephalic/atraumatic EYES: PERRLA, EOMI, subconjunctival hemorrhage IOP OD- 12, OS- 16 Fluorescein exam no corneal abrasion/laceration/foreign body EARS: Ext canals without abnormality NOSE: Nares patent bilateral OROPHARYNX: no oral lesions noted, posterior pharynx clear NECK: Supple, no adenopathy LUNGS: Normal breath sounds. No adventitious sounds or accessory muscle use. SpO2<97> CARDIOVASCULAR: Regular rate and rhythm without noted murmurs ABDOMEN: Soft, non-tender, non-distended with bowel sounds. MUSCULOSKELETAL: No tenderness, deformities, or effusions noted on gross inspection. EXTREMITIES: No cyanosis, clubbing or edema. SKIN: Inspection of the skin reveals no rashes NEUROLOGIC: Alert and oriented x 4. Strength and sensation to light touch were grossly intact x 4. Course Course Course Narrative: This is a rapid medical exam. Defer additional HPI, ROS, PE to primary provider. 60-year-old female with history of glaucoma here with complaints of redness noted to the right eye. Patient reports that 2 days ago she was standing in the [place] in her home and believes she may have had a exposure and had some throat irritation, bloody nose, cough with blood streaks. This seemed to resolve but today she noticed redness to right eye with no vision change, eye pain, concern for FB Will need eye exam blood pressure elevated-will need re-check Medications Administered Discontinued Medications Generic Name Dose Route Start Last Admin Trade Name Arabella PRN Reason Stop Dose Admin Tetracaine HCl 1 drop 09/07/23 17:50 09/07/23 19:46 Tetracaine Hcl/Pf 0.5% Oph Yany 4 Ml Drops EYE-RIGHT 09/07/23 17:51 1 drop ONCE ONE Administration Medical Decision Making Medical Decision Making MDM Narrative: 68-year-old female who arrives with likely upper respiratory irritation that has completely resolved and on eye exam and given history feel that this is most consistent with subconjunctival hemorrhage secondary to coughing there may be a component of iritis after standing over the weekend though there is no associated pain still feel that this is less likely. There are no elevated intra-ocular pressures or other findings consistent to suggest an acute angle glaucoma. History is not consistent with retinal detachment. Patient is otherwise discharged home, instructed to follow-up with her consumer loan specialist as well as a primary care doctor. Differential Diagnosis Differential Diagnoses: The differential diagnosis associated with the presentation includes Please see the discussion Admission/Observation Consideration of admission/observation: Escalation of care including admission/observation considered Please see the discussion above Discharge Plan Discharge Clinical Impression: Subconjunctival hemorrhage, Iritis Patient Disposition: Home, Self-Care Instructions: Iritis (ED), Subconjunctival Hemorrhage (ED) Additional Instructions: 1. Consider using bedside cool mist humidifier at night while you are sleeping to help reduce airway irritation. 2. Recommend [id number] eyedrops for any assistance with eye irritation. 3. Please follow-up with your consumer loan specialist in the next 1-2 days for re- evaluation. Do not hesitate to return to the emergency room for any worsening of your symptoms. Prescriptions: No Action lisinopril 10 mg tablet 10 mg PO DAILY Qty: 90 3RF buspirone 5 mg tablet 5 mg PO TID Qty: 90 5RF atorvastatin 40 mg tablet 40 mg PO DAILY Qty: 90 3RF metoprolol succinate 100 mg tablet extended release 24 hr 100 mg PO DAILY Qty: 90 1RF aspirin [Adult Low Dose Aspirin] 81 mg tablet,delayed release (DR/EC) 81 mg PO DAILY zolpidem 10 mg tablet 10 mg PO BEDTIME PRN (Reason: insomnia) Qty: 14 0RF latanoprost 0.005 % drops ophthalmic (eye) benzonatate 100 mg capsule 100 mg PO BID PRN (Reason: cough) Qty: 20 0RF albuterol sulfate 90 mcg/actuation HFA aerosol inhaler 2 puff inhalation Q6H PRN (Reason: shortness of breath or wheezing) Qty: 6.7 0RF cholecalciferol (vitamin D3) 25 mcg (1,000 unit) capsule 25 mcg PO DAILY Referrals: Tonie Cheema MD [Primary Care Provider] - Interventions: ED Discharge Assessment Last Done: 09/07/23 20:19 Discharge Date/Time: 09/07/23 20:20
[2023-09-07] MEDS: Tetracaine HCl/PF 0.5% Oph Sol 4 ML DROPS 1 DROP EYE-RIGHT (19:46)
== END 2023-09-07 20:20 | disposition home or self-care (01) ==
PROVIDERS: Emergency Provider Student in an Organized Health Care Education/Training Program; PCP Internal Medicine
DX: H11.30 Conjunctival hemorrhage, unspecified eye (principal); H20.9 Unspecified iridocyclitis; R05.9 Cough, unspecified; R04.0 Epistaxis; I25.2 Old myocardial infarction; I10 Essential (primary) hypertension
CPT/HCPCS: 99282; 99283

== ENCOUNTER 2023-09-08 16:07 | Emergency (ER) | payer MEDICARE, SELFPAY ==
--- NOTE | ~2023-09-08 | MR_ITS ---
EXAMINATION: MR BRAIN WITHOUT CONTRAST CLINICAL INFORMATION: Left upper extremity tingling. COMPARISON: CTA head and neck from 09/08/2023. TECHNIQUE: MRI of the brain was obtained using routine sequences without contrast. FINDINGS: No focal restricted diffusion is demonstrated to suggest acute or subacute cerebral ischemia. No evidence of acute or chronic hemorrhagic products on heme-sensitive imaging. Scattered periventricular and deep white matter T2 FLAIR hyperintensities consistent with mild to moderate underlying microangiopathy. Proportional prominence of the ventricles and sulcal spaces without evidence of obstructive hydrocephalus. No abnormal mass effect. No midline shift. Normal appearance of the pituitary gland. Normal positioning of the cerebellar tonsils. Normal arterial and venous vascular flow voids are present. Normal, homogeneous marrow signal. Mild mucosal thickening of the paranasal sinuses. No signal abnormalities within the mastoids. MR/MR head/brain wo con IMPRESSION: 1. No acute intracranial abnormalities. 2. Mild to moderate underlying microangiopathy and generalized cerebral volume loss.
--- NOTE | ~2023-09-08 | CT_ITS ---
EXAMINATION: CT ANGIOGRAM HEAD CT ANGIOGRAM NECK CLINICAL INFORMATION: Reason for Exam LUE tingling, resolved, HTN COMPARISON: CT head 06/23/2021 TECHNIQUE: Test bolus sequences followed by intravenous administration 75 mL of Omnipaque 350. Helical imaging was performed in the axial plane from the aortic arch to the skull vertex. Delayed postcontrast imaging of the head was also performed. The data was processed at the medical technologist chemistry's workstation for generation of MIP sequences. Angled MIPs and volume rendered reformatted images were also generated at an offline 3D workstation. Stenoses are assessed in accordance with Betancourt et al. Quantification of Carotid Stenosis on CT Angiography. AJR 2006. 27(1):13-19. [address] CT examination was performed using dose optimization techniques as appropriate, variously including the following: *Automated exposure control *Adjustment of mA and/or kV according to patient size (this includes techniques or standardized protocols for targeted exams where dose is matched to indication/reason for exam; i.e. extremities or head) *Use of iterative reconstruction technique DLP: 2061 mGy-cm FINDINGS: CT HEAD: Mild generalized parenchymal volume loss. Patchy periventricular and deep white matter hypoattenuation is nonspecific but most suggestive of minimal chronic microangiopathy. No territorial loss of jenkins-white differentiation. No acute intracranial hemorrhage or extra-axial fluid collection. No mass lesion, significant mass effect, or herniation pattern. No pathologic intra-axial enhancement or regional oligemia. The orbits are grossly normal. Small retention cyst along the roof of the left maxillary sinus. No mastoid effusion. Osseous structures are intact. Advanced bilateral TMJ osteoarthrosis. CTA HEAD: No hemodynamically significant stenosis or occlusion in the anterior or posterior circulation. Mild calcific plaque along the bilateral carotid siphons without associated stenosis. 2 mm infundibular origin of the left posterior communicating artery arising from the terminal left ICA. Intracranial saccular aneurysm or no high flow vascular malformations. Timing of the contrast bolus allows assessment of the major dural venous sinuses, which all opacify normally CTA NECK: Classic 3 vessel branching pattern of the aortic arch. Trace calcific plaque of the aortic arch and great vessel origins. Origins of the great vessels are widely patent. Minimal partially calcified fibrofatty plaque along the left common carotid artery without significant narrowing. Widely patent right common carotid artery. Calcific plaque of the bilateral carotid bifurcations without associated stenosis. Widely patent internal carotid arteries.The left vertebral artery is dominant. The vertebral artery ostia are widely patent. Both vertebral arteries are widely patent throughout their extracranial cervical course. CT NECK: Nonspecific asymmetric enlargement of the submandibular glands with punctate ossified sialolith on the left. Soft tissue along the base of tongue partially effacing the vallecula, presumably lingual tonsillar hyperplasia. Mild cervical spondylosis contributing to moderate bilateral C4-C5 and severe bilateral C5-C6 neural foraminal stenosis. CT/CT angio head neck IMPRESSION: 1. No acute intracranial findings. 2. No acute arterial occlusion or hemodynamically significant stenosis within the head or neck. 3. Mild cervical spondylosis contributing to moderate bilateral C4-C5 and severe bilateral C5-C6 neural foraminal stenosis that can be correlated for referrable radiculopathy, given the provided clinical history.
[2023-09-08 16:16] VITALS: BP 183/88; BP 196/110; PULSE 100; PULSE 79; RESP 16; TEMP 36.8; O2SAT 97; O2SAT 99
[2023-09-08 16:19] VITALS: BP 165/88
--- NOTE | 2023-09-08 16:19 | ECG_ITS ---
Test Reason : HYPERTENSIVE Blood Pressure : / mmHG Vent. Rate : 069 BPM Atrial Rate : 069 BPM P-R Int : 146 ms QRS Dur : 086 ms QT Int : 414 ms P-R-T Axes : 047 -03 016 degrees QTc Int : 443 ms Normal sinus rhythm Possible Left atrial enlargement Left ventricular hypertrophy ( R in aVL , Romhilt-Shepard ) Cannot rule out Septal infarct (cited on or before 16-DEC-2010) Premature ventricular complexes Abnormal ECG When compared with ECG of 23-JUN-2021 12:31, No significant change was found Referred By: Thu Andrews Electronically Signed By:ESPERANZA QUIÑONEZ
[2023-09-08 16:30] LABS: MANUAL DIFF FLAG NO
[2023-09-08 16:32] LABS: Basophils Percent Auto 0.4 % (0-2); Eosinophils Absolute Auto 0.1 X10*3/uL (0.0-0.4); Eosinophils Percent Auto 0.7 % (0-4); Hematocrit 39.3 % (37.0-47.0); Hemoglobin 12.9 g/dl (12.0-16.0); Imm Gran Abs Auto 0.02 X10*3/uL (0.00-0.03); Imm Gran Pct Auto 0.3 % (0.0-0.4); Lymphocytes Absolute Auto 2.3 X10*3/uL (1.2-4.9); Lymphocytes Percent Auto 32.6 % (20-40); Mean Corpuscular HGB Conc 32.8 g/dl (31.0-35.0); Mean Corpuscular Hemoglobin 30.3 pg (27.0-33.0); Mean Corpuscular Volume 92.3 fL (80.0-98.0); Mean Platelet Volume 9.6 fL (9.4-12.3); Monocytes Absolute Auto 0.6 X10*3/uL (0.1-1.2); Monocytes Percent Auto 8.3 % (2-11); Neutrophils Absolute Auto 4.1 x10*3/uL (2.0-8.3); Neutrophils Percent Auto 57.7 % (45-73); Platelet Count 193 X10*3/uL (160-400); Red Blood Count 4.26 X10*6/uL (4.20-5.50); Red Cell Distribution Width 11.9 % (11.0-16.0)
[2023-09-08 16:39] LABS: Prothrombin Time 12.4 SEC (11.1-13.3)
--- NOTE | 2023-09-08 16:42 | ED.GENADULT ---
HPI - General Adult General Chief complaint: General Medical Stated complaint: HYPERTENSIVE TINGLING IN L ARM Time Seen by Provider: 09/08/23 16:08 Source: patient Mode of arrival: EMS History of Present Illness HPI narrative: 68-year-old female with a history of hypertension and remote history of GA presents with experiencing left upper extremity tingling 30 minutes prior to presentation and states that has since resolved, she does have a mild headache, she reports she has taken her antihypertensives for the day, she states that she feels flushed but denies any associated visual or speech disturbances any gait instability or unilateral extremity weakness. Related Data Home Medications Medication Instructions Recorded Confirmed cholecalciferol (vitamin D3) 25 25 mcg PO DAILY 07/04/20 06/30/23 mcg (1,000 unit) capsule aspirin 81 mg tablet,delayed 81 mg PO DAILY 01/09/22 06/30/23 release (Adult Low Dose Aspirin) latanoprost 0.005 % eye drops drp ophthalmic (eye) 07/19/23 Previous Rx's Medication Instructions Recorded zolpidem 10 mg tablet 10 mg PO BEDTIME PRN insomnia #14 10/08/22 tabs lisinopril 10 mg tablet 10 mg PO DAILY #90 tabs 02/23/23 buspirone 5 mg tablet 5 mg PO TID #90 tabs 03/23/23 atorvastatin 40 mg tablet 40 mg PO DAILY #90 tabs 07/02/23 metoprolol succinate 100 mg 100 mg PO DAILY #90 tabs 07/17/23 tablet,extended release 24 hr albuterol sulfate 90 mcg/actuation 2 puff inhalation Q6H PRN 07/19/23 aerosol inhaler shortness of breath or wheezing #6.7 grams benzonatate 100 mg capsule 100 mg PO BID PRN cough #20 caps 07/19/23 Allergies Allergy/AdvReac Type Severity Reaction Status Date / Time No Known Allergies Allergy Verified 09/08/23 16:16 Review of Systems Review of Systems: Pertinent positives and negatives as stated in HPI [facility] Past Medical History Source: nursing notes reviewed Medical History Impaired fasting glucose History of adenomatous polyp of colon Osteopenia of lumbar spine Insomnia disorder, with non-sleep disorder mental comorbidity Dyslipidemia Anxiety and depression Postmenopause Positional lightheadedness HTN (hypertension) Myocardial infarct Surgical History Hx of colonoscopy H/O tubal ligation Hx of tonsillectomy Hx of cardiac cath Family History Family History Father CVD (cardiovascular disease) Substance use disorder Mother CVD (cardiovascular disease) Brother Substance use disorder Mental health disorder Son Substance use disorder Social History Social History Housing: House Alcohol intake: never Patient Tobacco Use Status: Former Tobacco user Smoked in Last 30 Days: No e-Cigarette/Vaping Use: Never Used Use of substances other than those prescribed or required for medical reasons: No Advance Directives: Yes Advance Directives Information Provided: No Advance Directives on File: No service: No Current occupational status: employed and retired Cognitive needs: No Hearing needs: No Vision needs: Yes Physical Exam ED Vital Signs: Vital Signs - 24 hr 09/08/23 16:16 09/08/23 16:19 09/08/23 17:55 Temperature 98.2 F 98.2 F Pulse Rate 79 69 Respiratory Rate 16 16 Blood Pressure 183/88 H 165/88 H 168/82 H Pulse Oximetry 97 98 Oxygen Delivery Method Room Air Room Air 09/08/23 19:56 Temperature 98.0 F Pulse Rate 61 Respiratory Rate 16 Blood Pressure 162/79 H Pulse Oximetry 97 Oxygen Delivery Method Room Air BMI result Body Mass Index 30.0 VITAL SIGNS: Reviewed. GENERAL: Well developed, well nourished, in no acute distress. HEAD: Normocephalic/atraumatic EYES: PERRLA, EOMI, subconjunctival hemorrhage EARS: Ext canals without abnormality NOSE: Nares patent bilateral OROPHARYNX: no oral lesions noted, posterior pharynx clear NECK: Supple, no adenopathy LUNGS: Normal breath sounds. No adventitious sounds or accessory muscle use. SpO2<97> CARDIOVASCULAR: Regular rate and rhythm without noted murmurs ABDOMEN: Soft, non-tender, non-distended with bowel sounds. MUSCULOSKELETAL: No tenderness, deformities, or effusions noted on gross inspection. EXTREMITIES: No cyanosis, clubbing or edema. SKIN: Inspection of the skin reveals no rashes NEUROLOGIC: Alert and oriented x 4. Strength and sensation to light touch were grossly intact x 4, no facial asymmetry, no pronator drift, cranial nerves 2-12 are grossly intact NIH Stroke Scale Internal: Initial- Upon Arrival Level of Consciousness: Alert Level of Consciousness Questions: Answers both questions correctly Level of Consciousness Commands: Performs both tasks correctly Best Gaze: Normal Visual: No visual loss Facial Palsy: Normal Motor Arm (Right): No drift Motor Arm (Left): No drift Motor Leg (Right): No drift Motor Leg (Left): No drift Limb Ataxia: Absent Sensory: Normal Best Language: No aphasia Dysarthia: Normal Extinction and Inattention: No abnormality Score: 0 Medications Administered Discontinued Medications Generic Name Dose Route Start Last Admin Trade Name Freq PRN Reason Stop Dose Admin Aspirin 162 mg 09/08/23 16:46 09/08/23 16:51 Aspirin 81 Mg Tab.Chew PO 09/08/23 16:47 162 mg ONCE ONE Administration Iohexol 75 ml 09/08/23 17:48 09/08/23 17:49 Iohexol 350 Mg/Ml 100 Ml Infus..Btl IV 09/08/23 17:49 75 ml ONCE ONE Administration Medical Decision Making Medical Decision Making MDM Narrative: 68-year-old female with history and clinical presentation, DDX: Malignant hypertension, TIA, gave 162 mg of aspirin. And blood pressure has improved. I reviewed all investigations and hematologic indices are grossly within normal limits and there are no noted derangements. Coagulation studies are within normal limits. Chemistry indices are grossly within normal limits with the exception of a chronically detectable and mildly elevated total bilirubin. Otherwise high sensitivity troponin is chronically detected but not elevated and inflammatory markers ESR/CRP are undetectable and TSH is within normal range. Urinalysis is negative for protein/infections/hematuria. Viral testing is negative for COVID-19/influenza. Noncontrast head CT negative for evidence to suggest intracranial bleeding or mass effect and CT angio of head and neck not significant for any critical stenoses or blockages. There are noted cervical spine changes as mentioned below which could explain the numbness and tingling that patient experienced. MRI negative for evidence to suggest acute/subacute/old infarct. Mild cervical spondylosis contributing to moderate bilateral C4-C5 and severe bilateral C5-C6 neural foraminal stenosis that can be correlated for referrable radiculopathy, given the provided clinical history. 68-year-old female with my interpretation being poorly controlled high blood pressure and symptoms likely consistent with underlying cervical radiculopathy. All results and findings were discussed with her at bedside and she was strongly encouraged to follow-up with primary care doctor to adjust her blood pressure medications. She still has a subconjunctival hemorrhage. Differential Diagnosis Differential Diagnoses: The differential diagnosis associated with the presentation includes Please see the discussion Admission/Observation Consideration of admission/observation: Escalation of care including admission/observation considered Please see the discussion above Lab Data MDM Lab Attestation statement: I reviewed the patient's lab results. Please see the discussion above 09/08/23 16:26 09/08/23 16:26 Labs: Lab Results 09/08/23 09/08/23 09/08/23 Range/Units 16:26 16:45 16:46 WBC 7.0 (4.8-10.8) X10*3/uL RBC 4.26 (4.20-5.50) X10*6/uL Hgb 12.9 (12.0-16.0) g/dl Hct 39.3 (37.0-47.0) % MCV 92.3 (80.0-98.0) fL MCH 30.3 (27.0-33.0) pg MCHC 32.8 (31.0-35.0) g/dl RDW 11.9 (11.0-16.0) % Plt Count 193 (160-400) X10*3/uL MPV 9.6 (9.4-12.3) fL Immature Gran % (Auto) 0.3 (0.0-0.4) % Neut % (Auto) 57.7 (45-73) % Lymph % (Auto) 32.6 (20-40) % Turner % (Auto) 8.3 (2-11) % Eos % (Auto) 0.7 (0-4) % Baso % (Auto) 0.4 (0-2) % Lymph # (Auto) 2.3 (1.2-4.9) X10*3/uL Turner # (Auto) 0.6 (0.1-1.2) X10*3/uL Eos # (Auto) 0.1 (0.0-0.4) X10*3/uL Baso # (Auto) 0.0 (0.0-0.2) X10*3/uL Abs Immat Gran (auto) 0.02 (0.00-0.03) X10*3/uL Absolute Neuts (auto) 4.1 (2.0-8.3) x10*3/uL Absolute Nucleated RBC 0.000 (0.0-0.012) X10*3/uL Nucleated RBC % (auto) 0.0 (0.0-0.2) /100WBC ESR (0-20) MM/HR PT 12.4 (11.1-13.3) SEC INR 1.0 (0.9-1.1) Sodium 140 (135-145) mmol/L Potassium 3.6 (3.3-5.1) mmol/L Chloride 106 (96-108) mmol/L Carbon Dioxide 24 (22-29) mmol/L Anion Gap 14 (12-20) BUN 13 (9-16) mg/dL Creatinine 0.79 (0.5-1.4) mg/dL Estim Creat Clear Calc 66.8 Estimated GFR > 60 Random Glucose 97 (60-115) mg/dL Calcium 9.2 (8.4-10.2) mg/dL Total Bilirubin 1.4 H (0.0-1.0) mg/dL AST 25 (5-31) U/L ALT 21 (0-31) U/L Alkaline Phosphatase 62 (39-117) U/L Troponin I High Sens 3.5 (<3.5-17.0) ng/L C-Reactive Protein (< or = 0.50) mg/dL Total Protein 7.2 (6.5-8.0) g/dL Albumin 4.2 (3.5-5.0) g/dL TSH 1.42 (0.32-4.0) uIU/mL Urine Color Yellow Urine Appearance Clear Urine pH 6.0 (5.0-9.0) Ur Specific Zanoni <= 1.005 (1.005-1.025) Urine Protein Trace (Neg-Trace) mg/dL Urine Glucose (UA) Negative (Negative) mg/dL Urine Ketones Negative (Negative) mg/dL Urine Blood Trace H (Negative) Urine Nitrite Negative (Negative) Ur Leukocyte Esterase Negative (Negative) Urine RBC 0-2 (0-2) /HPF Urine WBC 0-5 (0-5) /HPF Ur Squamous Epith Cells 0-2 (0-2) /HPF Urine Bacteria None Seen (None Seen) Hyaline Casts 0-2 (0-2) /LPF Influenza Type A (PCR) (Negative) Influenza Type B (PCR) (Negative) RSV RNA Qual (PCR) (Negative) SARS-CoV-2 RNA (RT-PCR) (Negative) 09/08/23 Range/Units 16:57 WBC (4.8-10.8) X10*3/uL RBC (4.20-5.50) X10*6/uL Hgb (12.0-16.0) g/dl Hct (37.0-47.0) % MCV (80.0-98.0) fL MCH (27.0-33.0) pg MCHC (31.0-35.0) g/dl RDW (11.0-16.0) % Plt Count (160-400) X10*3/uL MPV (9.4-12.3) fL Immature Gran % (Auto) (0.0-0.4) % Neut % (Auto) (45-73) % Lymph % (Auto) (20-40) % Turner % (Auto) (2-11) % Eos % (Auto) (0-4) % Baso % (Auto) (0-2) % Lymph # (Auto) (1.2-4.9) X10*3/uL Turner # (Auto) (0.1-1.2) X10*3/uL Eos # (Auto) (0.0-0.4) X10*3/uL Baso # (Auto) (0.0-0.2) X10*3/uL Abs Immat Gran (auto) (0.00-0.03) X10*3/uL Absolute Neuts (auto) (2.0-8.3) x10*3/uL Absolute Nucleated RBC (0.0-0.012) X10*3/uL Nucleated RBC % (auto) (0.0-0.2) /100WBC ESR 17 (0-20) MM/HR PT (11.1-13.3) SEC INR (0.9-1.1) Sodium (135-145) mmol/L Potassium (3.3-5.1) mmol/L Chloride (96-108) mmol/L Carbon Dioxide (22-29) mmol/L Anion Gap (12-20) BUN (9-16) mg/dL Creatinine (0.5-1.4) mg/dL Estim Creat Clear Calc Estimated GFR Random Glucose (60-115) mg/dL Calcium (8.4-10.2) mg/dL Total Bilirubin (0.0-1.0) mg/dL AST (5-31) U/L ALT (0-31) U/L Alkaline Phosphatase (39-117) U/L Troponin I High Sens (<3.5-17.0) ng/L C-Reactive Protein < 0.10 (< or = 0.50) mg/dL Total Protein (6.5-8.0) g/dL Albumin (3.5-5.0) g/dL TSH (0.32-4.0) uIU/mL Urine Color Urine Appearance Urine pH (5.0-9.0) Ur Specific Zanoni (1.005-1.025) Urine Protein (Neg-Trace) mg/dL Urine Glucose (UA) (Negative) mg/dL Urine Ketones (Negative) mg/dL Urine Blood (Negative) Urine Nitrite (Negative) Ur Leukocyte Esterase (Negative) Urine RBC (0-2) /HPF Urine WBC (0-5) /HPF Ur Squamous Epith Cells (0-2) /HPF Urine Bacteria (None Seen) Hyaline Casts (0-2) /LPF Influenza Type A (PCR) NEGATIVE (Negative) Influenza Type B (PCR) NEGATIVE (Negative) RSV RNA Qual (PCR) NEGATIVE (Negative) SARS-CoV-2 RNA (RT-PCR) NEGATIVE (Negative) Independent Interpretation I performed an independent interpretation of an: EKG Interpretation: Normal sinus rhythm, HR-69, no STEMI, [place]/QRS/QTC is within normal limits. Radiology Impression Discussion of test interpretation with radiology: I have reviewed the radiologist's reading. Radiologist Impression: Please see the discussion above External Record Review External record reviewed: Outpatient record, Prior outpatient labs and Prior outpatient radiology Chronic Conditions Patient?s care impacted by: Hypertension Critical Care Time Critical Care Time Critical Care Time: Yes Total Critical Care Time: 60 Attestation: I personally attest to this time spent taking care of the patient. Discharge Plan Discharge Clinical Impression: Cervical radiculopathy, Poorly-controlled hypertension, Subconjunctival bleed Patient Disposition: Home, Self-Care Instructions: Cervical Radiculopathy (ED), DASH Eating Plan (ED), Hypertension (ED), Subconjunctival Hemorrhage (ED) Additional Instructions: 1. Resume all home medications as prescribed. Number 2. It is imperative that you follow-up with your primary care doctor by calling the office in the morning and continuing to call until you get a follow-up appointment to discuss adjustment of your blood pressure medication so that it is better controlled. Return to the ER for any worsening symptoms. Prescriptions: No Action lisinopril 10 mg tablet 10 mg PO DAILY Qty: 90 3RF buspirone 5 mg tablet 5 mg PO TID Qty: 90 5RF atorvastatin 40 mg tablet 40 mg PO DAILY Qty: 90 3RF metoprolol succinate 100 mg tablet extended release 24 hr 100 mg PO DAILY Qty: 90 1RF aspirin [Adult Low Dose Aspirin] 81 mg tablet,delayed release (DR/EC) 81 mg PO DAILY zolpidem 10 mg tablet 10 mg PO BEDTIME PRN (Reason: insomnia) Qty: 14 0RF latanoprost 0.005 % drops ophthalmic (eye) benzonatate 100 mg capsule 100 mg PO BID PRN (Reason: cough) Qty: 20 0RF albuterol sulfate 90 mcg/actuation HFA aerosol inhaler 2 puff inhalation Q6H PRN (Reason: shortness of breath or wheezing) Qty: 6.7 0RF cholecalciferol (vitamin D3) 25 mcg (1,000 unit) capsule 25 mcg PO DAILY Referrals: Tonie Cheema MD [Primary Care Provider] -
[2023-09-08] MEDS: Aspirin 81 MG TAB.CHEW 162 MG PO (16:51)
--- NOTE | 2023-09-08 16:51 | PC.NURSE ---
labs obtained/ekg performed by tech. pt medicated per provider order. pt waiting to go to CT at this time. respirations remain even and unlabored. call ramos placed within reach.
[2023-09-08 16:53] LABS: Alanine Aminotransferase 21 U/L (0-31); Albumin Level 4.2 g/dL (3.5-5.0); Alkaline Phosphatase 62 U/L (39-117); Anion Gap 14 (12-20); Aspartate Amino Transferase 25 U/L (5-31); Bilirubin Total 1.4 mg/dL (0.0-1.0); Blood Urea Nitrogen 13 mg/dL (9-16); Calcium 9.2 mg/dL (8.4-10.2); Carbon Dioxide 24 mmol/L (22-29); Chloride 106 mmol/L (96-108); Creatinine Clr Calc Pharmacy 66.8; Estimated Glomerular Filt Rate > 60; Glucose Random 97 mg/dL (60-115); Potassium 3.6 mmol/L (3.3-5.1); Sodium 140 mmol/L (135-145); Total Protein 7.2 g/dL (6.5-8.0)
[2023-09-08 16:54] LABS: Appearance Urine Clear; Color Urine Yellow; Glucose Urine UA Negative (Negative); Leukocyte Esterase Urine Negative (Negative); Nitrite Urine Negative (Negative); Specific Gravity - Urine <= 1.005 (1.005-1.025); UMIC TRIGGER UACC YES; Urine Blood Trace (Negative); Urine Ketones Negative (Negative); Urine Protein Trace mg/dL (Neg-Trace)
[2023-09-08 16:59] LABS: Bacteria Urine None Seen (None Seen); Hyaline Casts Urine 0-2 /LPF (0-2); RBC Urine 0-2 /HPF (0-2); Squamous Epithelial Cell Urine 0-2 /HPF (0-2); WBC Urine 0-5 /HPF (0-5)
[2023-09-08 17:18] LABS: C Reactive Protein < 0.10 mg/dL (< or = 0.50)
[2023-09-08 17:24] LABS: Troponin-I High Sensitivity 3.5 ng/L (<3.5-17.0)
[2023-09-08 17:38] LABS: TSH reflex Free T4 1.42 uIU/mL (0.32-4.0)
[2023-09-08 17:41] LABS: Erythrocyte Sedimentation Rate 17 MM/HR (0-20)
[2023-09-08 17:42] LABS: Influenza A PCR NEGATIVE (Negative); Influenza B PCR NEGATIVE (Negative); Resp Syncy Virus RNA Qual PCR NEGATIVE (Negative); SARS COV2 PCR INHOUSE NEGATIVE (Negative)
[2023-09-08] MEDS: iohexoL 350 MG/ML 100 ML INFUS..BTL 75 ML IV (17:49)
[2023-09-08 17:55] VITALS: BP 168/82; PULSE 69; RESP 16; TEMP 36.8; O2SAT 98
--- NOTE | 2023-09-08 18:58 | PC.NURSE ---
MRI form filled out/faxed over at this time. transport bedside taking pt to MRI.
--- NOTE | 2023-09-08 19:19 | PC.NURSE ---
Report received from Lisandra MACK. Pt in MRI at this time.
[2023-09-08 19:56] VITALS: BP 162/79; PULSE 61; RESP 16; TEMP 36.7; O2SAT 97
[2023-09-08 21:17] VITALS: BP 187/85; PULSE 62; RESP 18; O2SAT 96
== END 2023-09-08 21:29 | disposition home or self-care (01) ==
PROVIDERS: Emergency Provider Student in an Organized Health Care Education/Training Program; PCP Internal Medicine
DX: M54.12 Radiculopathy, cervical region (principal); I10 Essential (primary) hypertension; H11.33 Conjunctival hemorrhage, bilateral; E78.5 Hyperlipidemia, unspecified; I25.2 Old myocardial infarction; Z11.52 Encounter for screening for COVID-19; Z20.828 Contact with and (suspected) exposure to other viral communicable diseases; Z79.82 Long term (current) use of aspirin; Z79.02 Long term (current) use of antithrombotics/antiplatelets; Z79.899 Other long term (current) drug therapy
CPT/HCPCS: 0241U; 36415; 70496; 70498; 70551; 80053; 81001; 84443; 84484; 85025; 85610; 85652; 86140; 93005; 99285; Q9967

== ENCOUNTER → 2023-09-08 16:19 | Outpatient (BNV) | payer MEDICARE, SELFPAY | PROVIDERS: Emergency Provider Student in an Organized Health Care Education/Training Program; PCP Internal Medicine; Visit Provider Internal Medicine | DX: I49.3 Ventricular premature depolarization (principal); R94.31 Abnormal electrocardiogram [ECG] [EKG] | CPT/HCPCS: 93010 ==

== ENCOUNTER 2023-09-09 13:47 | Outpatient (AMB) | payer MEDICARE, SELFPAY ==
--- NOTE | 2023-09-09 13:58 | A.OFFPC_ITS ---
Vital Signs 09/09/23 13:59 Height 5 ft 3 in Weight 166 lb BMI 29.4 BP 136/90 H Blood Pressure Location Rt brachial Position Sitting Pulse 75 Pulse Source Pulse Oximeter Pulse Oximetry (%) 97 Oxygen Delivery Method Room Air Intake Visit Reasons: elevated b/p Intake Note: Pt is here today for a ED f/u for elevates b/p Allergies No Known Allergies Allergy (Verified 09/09/23 14:23) Medication List - Last Reconciled 09/09/23 by Tonie Cheema MD aspirin (Adult Low Dose Aspirin) 81 mg PO DAILY atorvastatin 40 mg PO DAILY buspirone 5 mg PO TID cholecalciferol (vitamin D3) 25 mcg PO DAILY latanoprost 0.005% drps ophthalmic (eye) lisinopril 10 mg PO DAILY metoprolol succinate ER 100 mg PO DAILY Tobacco use date assessed: 09/09/23 Fall risk assessment: No Falls in past year Last assessed Fall Risk: 09/09/23 Dental Screening Dental Screen Date: 09/09/23 Did you have a dental visit in the last 12 months?: Yes Did you have a dental problem in the last 6 months where you did not have access to dental care?: Yes Was dental information given to patient?: Patient has dentist HPI elevated b/p HPI Details 68-year-old lady with hypertension hyper lipidemia, here today for follow-up. Currently taking lisinopril 10 mg once a day and metoprolol succinate ER 100 mg at night blood pressure today is better but still not at goal of less than 130/90. Denies any chest pain, no headache, no lightheadedness or shortness of breath . She was seen at the ER at [facility] and labs done for all came back with unremarkable findings.. Viral testing was negative for COVID-19/influenza. Noncontrast head CT negative for evidence to suggest intracranial bleeding or mass effect and CT angio of head and neck not significant for any critical stenoses or blockages. MRI negative for evidence to suggest acute/subacute/old infarct. There was mild cervical spondylosis contributing to moderate bilateral C4-C5 and severe bilateral C5-C6 neural foraminal stenosis noted on imaging studies done , which likely explains at tingling that she was experiencing on her left arm when she went to the ER. She also developed a subconjunctival hemorrhage on her right eye after an episode of vigorous coughing several days ago. At present patient states that she has been feeling better, with no complaints of any headache, no chest pain, has been taking her medications as directed. Subconjunctival bleed and right eye is starting to resolve. Denies any visual changes [facility] Medical History Impaired fasting glucose History of adenomatous polyp of colon Osteopenia of lumbar spine Insomnia disorder, with non-sleep disorder mental comorbidity Dyslipidemia Anxiety and depression Postmenopause Positional lightheadedness HTN (hypertension) Myocardial infarct Surgical History Hx of colonoscopy H/O tubal ligation Hx of tonsillectomy Hx of cardiac cath Family History Father CVD (cardiovascular disease) Substance use disorder Mother CVD (cardiovascular disease) Brother Substance use disorder Mental health disorder Son Substance use disorder Social History Housing: House Alcohol intake: never Patient Tobacco Use Status: Former Tobacco user e-Cigarette/Vaping Use: Never Used service: No Current occupational status: employed and retired Cognitive needs: No Hearing needs: No Vision needs: Yes Questionnaire PHQ-9 Over the last 2 weeks, how often have you been bothered by any of the following problems? 1. Little interest or pleasure in doing things: not at all 2. Feeling down, depressed, or hopeless: not at all 3. Trouble falling or staying asleep, or sleeping too much: more than half the days 4. Feeling tired or having little energy: not at all 5. Poor appetite or overeating: not at all 6. Feeling bad about yourself - or that you are a failure or have let yourself or your family down: not at all 7. Trouble concentrating on things, such as reading the newspaper or watching television: not at all 8. Moving or speaking so slowly that other people could have noticed. Or the opposite - being so fidgety or restless that you have been moving around a lot more than usual: not at all 9. Thoughts that you would be better off or of hurting yourself in some way: not at all Total score: 2 Depression Screening Interpretation: Negative Depression Screening Done: Yes 84211 - PHQ-9 Billing: Yes Source: Developed by Drs. Fahad Torres, Ellie Unger, Van Peterson and colleagues, with an educational donavan from [employer]. Thrive Questionnaire Date Thrive assessed: 09/09/23 I am a: Patient What is your living situation today?: I have a steady place to live Within the past 12 months, did the food you bought not last and you didn't have the money to get more?: Never true Within the past 12 months, did you worry whether your food would run out before you got money to buy more?: Never true Do you have trouble paying for medicines?: No Do you have trouble getting transportation to medical appointments?: No Do you have trouble paying your heating and electricity bill?: No Do you have trouble taking care of your child, family member or friend?: No Do you have trouble with day-to-day activities such as bathing, preparing meals, shopping, managing finances, etc.?: No Are you currently unemployed and looking for a job?: No Are you interested in more education?: No THRIVE Score: 0 AUDIT C Alcohol Use Questionnaire (AUDIT-C) 1. How often do you have a drink containing alcohol?: Monthly or less 2. How many drinks containing alcohol do you have on a typical day when you are drinking?: 1 or 2 3. How often do you have six or more drinks on one occasion?: Never Total Score: 1 EDDIE-7 AMB Questionnaire EDDIE-7 Date EDDIE - 7 assessed: 09/09/23 Feeling nervous, anxious, or on edge: 1 = Several days Not being able to stop or control worryin = Several days Worrying too much about different things: 1 = Several days Trouble relaxin = Several days Being so restless that it is hard to sit still: 1 = Several days Becoming easily annoyed or irritable: 0 = Not at all Feeling afraid as if something awful might happen: 1 = Several days Total EDDIE-7 score (0-4 normal; 5-9 mild; 10-14 moderate; 15-21 severe): 6 Source: Developed by Ellie Anderson.W. Cornel, Van Peterson and colleagues, with an educational donavan from [employer]. Review of Systems Const Denies fatigue, Denies fever(s), Denies frequent falls and Denies weakness Eyes Reports as per HPI ENT Denies dizziness Card Denies chest pain, Denies leg edema, Denies lightheadedness, Denies palpitations and Denies dyspnea Resp Denies cough and Denies dyspnea GI Reports no additional complaints Musc Denies abnormal gait, Denies muscle weakness and Denies numbness Neuro Denies abnormal gait, Denies dizziness, Denies frequent falls, Denies numbness and Denies weakness Endo Denies fatigue and Denies palpitations Physical exam (Primary Care) Vital Signs: Last Vital Signs Pulse 75 09/09/23 13:59 BP 136/90 H 09/09/23 13:59 Pulse Ox 97 09/09/23 13:59 Oxygen Delivery Method Room Air 09/09/23 13:59 BMI result Body Mass Index 29.4 Tobacco/Smoking Status: Tobacco use Status Tobacco use date assessed 09/09/23 09/09/23 14:00 Patient Tobacco Use Status Former Tobacco user 09/09/23 14:00 e-Cigarette/Vaping Use Never Used 09/09/23 14:00 PHQ-9: PHQ-9 Score PHQ-9: Total score 2 09/12/23 21:54 Depression Screening Interpretation: Negative Thrive Assessment: Date of Thrive Assessment Date Thrive assessed 09/09/23 09/09/23 14:52 Const Other: Alert oriented x3, no acute cardiorespiratory distress noted ambulatory with normal gait Orientation/consciousness: patient oriented x3 [facility] Head: Yes normocephalic Ears: external ears normal Face and sinus: Yes face symmetric Mouth: Normal oral and palatal mucosa present, oropharynx normal and moist mucous membranes Eyes Other: Minimal subconjunctival hemorrhage right eye Neck Neck: Yes full ROM, Yes no lymphadenopathy and Yes supple Resp Auscultation: clear to auscultation bilaterally Cardio Other: S1-S2 present regular rate and rhythm GI Inspection: Yes normal to inspection Palpation (GI): Soft to palpation, nontender, no guarding and no masses Auscultation: normal bowel sounds Back/Spine/Pelvis Back: No back tenderness Skin General skin exam: no rashes or lesions noted Neuro General: patient oriented x3, gait normal, moves all extremities, Normal light touch and pain sensation, no focal motor deficits and CN's II-XI intact bilaterally Extrem General: Yes full ROM, Yes no joint enlargement, Yes no clubbing, cyanosis or edema and Yes normal gait Results Reviewed Results Reviewed: ENTERED: 09/08/23-1619 [facility] : ORDERED: CMP Test Result Flag Reference Sodium 140 135-145 mmol/L Potassium 3.6 3.3-5.1 mmol/L CL 106 96-108 mmol/L CO2 24 22-29 mmol/L Gap 14 12-20 BUN 13 9-16 mg/dL Creat 0.79 0.5-1.4 mg/dL Estimated CrCl 66.8 Provided height and weight: 160.02 cm, 76.8 kg. eGFR (calculated from the MDRD study equation) and eCrCl (calculated from the Cockcroft-Gault equation) are based on different parameters and may not yield comparable results. If eCrCl result is absurd, please check patient's height/weight. EGFR > 60 NOTE: For -[place] individuals, multiply the result by 1.210. Chronic Kidney Disease: Estimated GFR < 60 mL/min/1.73m2 Severe Kidney Disease: Estimated GFR < 15 mL/min/1.73m2 Glucose, Random 97 60-115 mg/dL CA 9.2 8.4-10.2 mg/dL Total Bili 1.4 H 0.0-1.0 mg/dL AST (GOT) 25 5-31 U/L ALT (GPT) 21 0-31 U/L Protein, Total 7.2 6.5-8.0 g/dL Alb 4.2 3.5-5.0 g/dL Alk Phos 62 39-117 U/L Assessment and Plan Assessment & Plan (1) Hypertension: Code(s): I10 - Essential (primary) hypertension Qualifiers: Hypertension type: primary hypertension Qualified Code(s): I10 - Es sential (primary) hypertension Plan: Blood pressure almost at goal of less than 130/80. Continue with lisinopril , but dose increased to 20 mg daily and continue metoprolol succinate ER 100 mg once a day. Reinforced importance of following a low sodium diet, getting regular exercise, and lowering stress levels. (2) Dyslipidemia: Code(s): E78.5 - Hyperlipidemia, unspecified Plan: Continue with atorvastatin 40 mg daily, fasting lipid panel ordered to be repeated in 3 month Orders: Orders Vitamin D 25-OH Total 12/01/23 E78.5 - Hyperlipidemia, unspecified, I10 - Essential (primary) hypertension Lipid Panel 12/01/23 E78.5 - Hyperlipidemia, unspecified, I10 - Essential (primary) hypertension Comprehensive [place]. Panel Fast 12/01/23 E78.5 - Hyperlipidemia, unspecified, I10 - Essential (primary) hypertension Creatine Kinase Total 12/01/23 E78.5 - Hyperlipidemia, unspecified, I10 - Essential (primary) hypertension Medications: Changed From atorvastatin 40 mg PO DAILY 90 tabs 3RF E78.5 - Hyperlipidemia, unspecified To atorvastatin QOD 40 mg PO DAILY E78.5 - Hyperlipidemia, unspecified From lisinopril 10 mg PO DAILY 90 tabs 3RF To lisinopril 20 mg PO DAILY 90 tabs 3RF Coding Level of Care Code Est Pt Level 4 (70391) Diagnoses Primary hypertension I10 Hypertension type: primary hypertension Dyslipidemia E78.5
[2023-09-09 13:59] VITALS: BP 136/90; PULSE 75; O2SAT 97; BMI 29.4
== END 2023-09-09 15:53 | disposition home or self-care (01) ==
PROVIDERS: PCP Internal Medicine; Visit Provider Internal Medicine
DX: I10 Essential (primary) hypertension (principal); E78.5 Hyperlipidemia, unspecified
CPT/HCPCS: 99214

== ENCOUNTER 2023-09-15 13:47 | Outpatient (AMB) | payer MEDICARE, SELFPAY ==
[2023-09-15 14:13] VITALS: BP 140/80; PULSE 65; BMI 29.1
--- NOTE | 2023-09-15 14:13 | A.OFFVIS_ITS ---
Intake Vital Signs 09/15/23 14:13 Height 5 ft 3 in Weight 164 lb 7.437 oz BMI 29.1 BP 140/80 H Blood Pressure Location Rt brachial Position Sitting Pulse 65 Pulse Source Pulse Oximeter Intake Visit Reasons: [facility] ED f/up Intake Note: pt its here in the office for an [facility] ED f/up pt states that she its doing well with some shortness of breath when she have high BP. 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 She has been getting chest pressure during acitvities, becoming sweaty, and a headache when her blood pressure rises. She had recently had her lisinopril increased to 20mg. She has had a cardiac cathetierzation in the past which showed mild to moderate proximal left circumflex artery lesion. FFR across the left circumflex artery was normal. History of myocardial infarct, HTN, dysliidemia, and impaired fasting glucose. [facility] Medical History Impaired fasting glucose History of adenomatous polyp of colon Osteopenia of lumbar spine Insomnia disorder, with non-sleep disorder mental comorbidity Dyslipidemia Anxiety and depression Postmenopause Positional lightheadedness HTN (hypertension) Myocardial infarct Surgical History Hx of colonoscopy H/O tubal ligation Hx of tonsillectomy Hx of cardiac cath Family History Father CVD (cardiovascular disease) Substance use disorder Mother CVD (cardiovascular disease) Brother Substance use disorder Mental health disorder Son Substance use disorder Social History Housing: House Alcohol intake: never Patient Tobacco Use Status: Former Tobacco user e-Cigarette/Vaping Use: Never Used service: No Current occupational status: employed and retired Cognitive needs: No Hearing needs: No Vision needs: Yes Review of Systems Const Denies chills, Denies fatigue, Denies fever(s), Denies frequent falls, Denies weakness, Denies weight gain and Denies weight loss ENT Denies dizziness Card Denies chest pain, Denies leg edema, Denies lightheadedness, Denies palpitations, Denies dyspnea and Denies dyspnea on exertion Resp Denies cough, Denies dyspnea and Denies dyspnea on exertion GI Denies hematochezia Musc Denies abnormal gait, Denies muscle weakness, Denies numbness, Denies radiating pain into limb and Denies tingling Neuro Denies abnormal gait, Denies dizziness, Denies frequent falls, Denies numbness, Denies tingling and Denies weakness Endo Denies fatigue and Denies palpitations Physical Exam Vital Signs: Last Vital Signs Pulse 65 09/15/23 14:13 BP 140/80 H 09/15/23 14:13 BMI result Body Mass Index 29.1 Assessment & Plan Assessment & Plan (1) CAD (coronary artery disease): Code(s): I25.10 - Atherosclerotic heart disease of [place] coronary artery without angina pectoris Plan: History of cardiac catheterization with mild to moderate proximal left circumflex artery lesion. Will have her do a stress test to check for ischemia. (2) Hypertension: Code(s): I10 - Essential (primary) hypertension Qualifiers: Hypertension type: primary hypertension Qualified Code(s): I10 - Essential (primary) hypertension Plan: Blood pressures increased on intial check and rechecked by me. Will increase li sinopril to 30mg QD and have her monitor her blood pressures at home and bring the log in at her blood pressure check in 1 week. Plan ED care for symptoms if needed. Will follow-up after testing to discuss results. Medications: New lisinopril 30 mg PO DAILY 30 days 30 tabs 2RF Discontinued lisinopril Discontinued Reason: Doctor's Order 20 mg PO DAILY 90 tabs 3RF Coding Level of Care Code Est Pt Level 3 (65843) Diagnoses CAD (coronary artery disease) I25.10 Primary hypertension I10 Hypertension type: primary hypertension
== END 2023-09-15 15:09 | disposition home or self-care (01) ==
PROVIDERS: PCP Internal Medicine; Visit Provider Nurse Practitioner
DX: I25.10 Atherosclerotic heart disease of native coronary artery without angina pectoris (principal); I10 Essential (primary) hypertension
CPT/HCPCS: 99213

== ENCOUNTER → 2023-09-15 13:47 | Outpatient (BNVA) | payer MEDICARE, SELFPAY | PROVIDERS: PCP Internal Medicine; Visit Provider Nurse Practitioner | DX: I25.10 Atherosclerotic heart disease of native coronary artery without angina pectoris (principal); I10 Essential (primary) hypertension | CPT/HCPCS: 99212 ==

== ENCOUNTER → 2023-09-23 08:53 | Outpatient (BNVA) | payer MEDICARE, SELFPAY | PROVIDERS: PCP Internal Medicine; Visit Provider Nurse Practitioner ==

== ENCOUNTER → 2023-11-04 08:00 | Outpatient (REF) | payer MEDICARE, SELFPAY ==
--- NOTE | ~2023-11-04 | NM_ITS ---
Exercise Myocardial perfusion study Indication: Chest pain to evaluate for myocardial ischemia Technique: The patient was brought in for an exercise perfusion study on 11/04/2023. Patient performed exercise as per Bobby protocol and was injected 25 mCi of sestamibi was given intravenously one target HR was achieved. Images were obtained using the SPECT gamma camera interlaced with the gating device. Images were obtained in supine position. Resting perfusion study was performed on 11/09/2023. Patient was administered 25 mCi of sestamibi intravenously at rest. Images were then obtained in supine position. Images obtained with and without CT attenuation. Total DLP 96 mGy-cm. Images were processed with the software and compared side to side in short axis, horizontal long axis and vertical long axis views. Findings: The stress perfusion study showed both attenuated as well as non attenuated corrected images show normal uptake of radiotracer in all segments of LV myocardium. The gated study shows normal LV systolic function with calculated LVEF of 71%. LV cavity is normal in size. The gated study shows normal systolic wall thickening and contraction of all segments. There is no transient ischemic dilation. Resting study shows non attenuated images show normal uptake of tracer in all segments of LV myocardium. Gating at rest reveals normal systolic wall motion with ejection fraction at 61%. The findings are consistent with normal myocardial perfusion. NM/NM cardiolite stress test Impression: 1. Normal myocardial perfusion 2. Gated LVEF is 71% 3. Transient ischemic dilatation not present Stress EKG is negative for ischemia
--- NOTE | 2023-11-04 08:02 | CA_ITS ---
Acquisition Time: 2023-11-04 08:01:09 Total Exercise Time: 00:07:00 Test Indications: CP, HTN Medications: SEE H Protocol: RANDALL Max HR: 139 BPM 91% of Pred: 152 BPM Max BP: 194/090 mmHG Max Work Load: 8.5 METS Exercise Stress test exercise 7 min of Randall protocol achieivng 91% MPHR, with mild SOB, no chets discomfort, with isolated PACs and PVCs, wiith HTN response to exercise, without EKG changes. Nuclear images pending. Test reviewed with Dr. Farris Referred By: Koki Littlejohn Overread By: Koki Littlejohn
== END ==
LOC: HO.CARD 08:00
PROVIDERS: PCP Internal Medicine; Visit Provider Nurse Practitioner
DX: R07.9 Chest pain, unspecified (principal); I25.10 Atherosclerotic heart disease of native coronary artery without angina pectoris; I10 Essential (primary) hypertension
CPT/HCPCS: 78452; 93017; A9500

== ENCOUNTER → 2023-11-04 08:02 | Outpatient (BNV) | payer MEDICARE, SELFPAY | PROVIDERS: PCP Internal Medicine; Visit Provider Nurse Practitioner | DX: R06.02 Shortness of breath (principal) | CPT/HCPCS: 78452; 93016; 93018 ==

== ENCOUNTER → 2023-11-18 08:37 | Outpatient (BNVA) | payer MEDICARE, SELFPAY | PROVIDERS: PCP Internal Medicine; Visit Provider Internal Medicine Cardiovascular Disease ==

== ENCOUNTER 2023-11-21 21:04 | Emergency (ER) | payer MEDICARE, SELFPAY ==
--- NOTE | 2023-11-21 | ECG_ITS ---
Test Reason : CHEST PAIN Blood Pressure : / mmHG Vent. Rate : 071 BPM Atrial Rate : 071 BPM P-R Int : 128 ms QRS Dur : 088 ms QT Int : 376 ms P-R-T Axes : 020 -15 021 degrees QTc Int : 408 ms Normal sinus rhythm Moderate voltage criteria for LVH, may be normal variant ( R in aVL , Juan product ) Possible Anterior infarct (cited on or before 16-DEC-2010) Abnormal ECG When compared with ECG of 08-SEP-2023 16:48, Premature ventricular complexes are no longer Present Questionable change in initial forces of Septal leads Referred By: Generic ED Physician Electronically Signed By:REJI MIRANDA MD
--- NOTE | ~2023-11-21 | XR_ITS ---
EXAMINATION: CHEST 2 VIEWS CLINICAL INFORMATION: chest pain. COMPARISON: 08/20/2020. TECHNIQUE: PA and lateral views of the chest obtained. FINDINGS: The lungs are well expanded. No focal infiltrate, effusion, edema, or pneumothorax. Cardiac and mediastinal silhouettes are within normal limits for size with vascular calcification in aorta. No acute bony abnormality seen XR/XR chest 2V IMPRESSION: No evidence of acute disease
[2023-11-21 21:14] VITALS: BP 125/76; PULSE 77; RESP 16; TEMP 36.7; O2SAT 99; BMI 27.3
[2023-11-21 21:22] LABS: MANUAL DIFF FLAG NO
[2023-11-21 21:31] LABS: Basophils Percent Auto 0.4 % (0-2); Eosinophils Absolute Auto 0.1 X10*3/uL (0.0-0.4); Eosinophils Percent Auto 1.3 % (0-4); Hematocrit 41.4 % (37.0-47.0); Hemoglobin 13.8 g/dl (12.0-16.0); Imm Gran Abs Auto 0.01 X10*3/uL (0.00-0.03); Imm Gran Pct Auto 0.1 % (0.0-0.4); Lymphocytes Absolute Auto 2.8 X10*3/uL (1.2-4.9); Lymphocytes Percent Auto 35.5 % (20-40); Mean Corpuscular HGB Conc 33.3 g/dl (31.0-35.0); Mean Corpuscular Hemoglobin 30.9 pg (27.0-33.0); Mean Corpuscular Volume 92.8 fL (80.0-98.0); Mean Platelet Volume 9.7 fL (9.4-12.3); Monocytes Absolute Auto 0.9 X10*3/uL (0.1-1.2); Monocytes Percent Auto 10.9 % (2-11); Neutrophils Absolute Auto 4.1 x10*3/uL (2.0-8.3); Neutrophils Percent Auto 51.8 % (45-73); Platelet Count 206 X10*3/uL (160-400); Red Blood Count 4.46 X10*6/uL (4.20-5.50); Red Cell Distribution Width 11.4 % (11.0-16.0)
[2023-11-21 21:42] LABS: Alanine Aminotransferase 22 U/L (0-31); Albumin Level 4.3 g/dL (3.5-5.0); Alkaline Phosphatase 70 U/L (39-117); Anion Gap 12 (12-20); Aspartate Amino Transferase 21 U/L (5-31); Blood Urea Nitrogen 24 mg/dL (9-16); Calcium 9.5 mg/dL (8.4-10.2); Carbon Dioxide 25 mmol/L (22-29); Chloride 107 mmol/L (96-108); Creatinine Clr Calc Pharmacy 46.2; Estimated Glomerular Filt Rate 50; Glucose Random 149 mg/dL (60-115); Potassium 3.9 mmol/L (3.3-5.1); Sodium 140 mmol/L (135-145); Total Protein 7.4 g/dL (6.5-8.0)
[2023-11-21 21:49] LABS: Troponin-I High Sensitivity < 2.7 ng/L (<3.5-17.0)
[2023-11-21 22:21] VITALS: PULSE 68
[2023-11-21 23:24] VITALS: BP 121/69; PULSE 58; RESP 10; TEMP 36.8; O2SAT 98
[2023-11-22 00:15] VITALS: BP 135/71; PULSE 61
[2023-11-22 00:33] VITALS: BP 120/57; PULSE 58
[2023-11-22 00:58] VITALS: BP 129/58; PULSE 61
[2023-11-22 03:11] VITALS: BP 132/58; PULSE 61; RESP 12; TEMP 36.7; O2SAT 98
--- NOTE | 2023-11-22 04:05 | ED.CHESTPAIN ---
HPI - Chest Pain General Chief Complaint: Chest Pain Stated Complaint: chest pain that comes and goes Time Seen by Provider: 11/22/23 04:05 Source: patient Mode of arrival: ambulatory Limitations: no limitations Related Data Home Medications ?Medication ?Instructions ?Recorded ?Confirmed cholecalciferol (vitamin D3) 25 25 mcg PO DAILY 07/04/20 06/30/23 mcg (1,000 unit) capsule aspirin 81 mg tablet,delayed 81 mg PO DAILY 01/09/22 06/30/23 release (Adult Low Dose Aspirin) latanoprost 0.005 % eye drops drp ophthalmic (eye) 07/19/23 atorvastatin 40 mg tablet 40 mg PO DAILY 09/09/23 09/09/23 multivitamin 1 tab PO DAILY 09/15/23 Previous Rx's ?Medication ?Instructions ?Recorded metoprolol succinate 100 mg 100 mg PO DAILY #90 tabs 07/17/23 tablet,extended release 24 hr lisinopril 30 mg tablet 30 mg PO DAILY 30 days #30 tabs 09/15/23 buspirone 5 mg tablet 5 mg PO TID #90 tabs 09/30/23 amlodipine 5 mg tablet 5 mg PO DAILY #30 tabs 11/09/23 Allergies Allergy/AdvReac Type Severity Reaction Status Date / Time No Known Allergies Allergy Verified 11/21/23 21:15 [facility] Past Medical History Medical History (Updated 11/22/23 @ 04:26 by Andrzej Mauricio MD) Chest pain Impaired fasting glucose History of adenomatous polyp of colon Osteopenia of lumbar spine Insomnia disorder, with non-sleep disorder mental comorbidity Dyslipidemia Anxiety and depression Postmenopause Positional lightheadedness HTN (hypertension) Myocardial infarct Surgical History Hx of colonoscopy H/O tubal ligation Hx of tonsillectomy Hx of cardiac cath Family History Family History Father CVD (cardiovascular disease) Substance use disorder Mother CVD (cardiovascular disease) Brother Substance use disorder Mental health disorder Son Substance use disorder Social History Social History Housing: House Alcohol intake: never Patient Tobacco Use Status: Former Tobacco user Smoked in Last 30 Days: No e-Cigarette/Vaping Use: Never Used Use of substances other than those prescribed or required for medical reasons: No Advance Directives: No Advance Directives Information Provided: No service: No Current occupational status: employed and retired Cognitive needs: No Hearing needs: No Vision needs: Yes Physical Exam Vital Signs: Vital Signs: Last Vital Signs Temp 98.1 F 11/22/23 03:11 Pulse 61 11/22/23 03:11 Resp 12 11/22/23 03:11 BP 132/58 L 11/22/23 03:11 Pulse Ox 98 11/22/23 03:11 O2 Del Method Room Air 11/22/23 03:11 BMI result Body Mass Index 27.3 Medical Decision Making Lab Data 11/21/23 21:18 11/21/23 21:18 Labs: Lab Results 11/21/23 Range/Units 21:18 WBC 8.0 (4.8-10.8) X10*3/uL RBC 4.46 (4.20-5.50) X10*6/uL Hgb 13.8 (12.0-16.0) g/dl Hct 41.4 (37.0-47.0) % MCV 92.8 (80.0-98.0) fL MCH 30.9 (27.0-33.0) pg MCHC 33.3 (31.0-35.0) g/dl RDW 11.4 (11.0-16.0) % Plt Count 206 (160-400) X10*3/uL MPV 9.7 (9.4-12.3) fL Immature Gran % (Auto) 0.1 (0.0-0.4) % Neut % (Auto) 51.8 (45-73) % Lymph % (Auto) 35.5 (20-40) % Curry % (Auto) 10.9 (2-11) % Eos % (Auto) 1.3 (0-4) % Baso % (Auto) 0.4 (0-2) % Lymph # (Auto) 2.8 (1.2-4.9) X10*3/uL Curry # (Auto) 0.9 (0.1-1.2) X10*3/uL Eos # (Auto) 0.1 (0.0-0.4) X10*3/uL Baso # (Auto) 0.0 (0.0-0.2) X10*3/uL Abs Immat Gran (auto) 0.01 (0.00-0.03) X10*3/uL Absolute Neuts (auto) 4.1 (2.0-8.3) x10*3/uL Absolute Nucleated RBC 0.000 (0.0-0.012) X10*3/uL Nucleated RBC % (auto) 0.0 (0.0-0.2) /100WBC Sodium 140 (135-145) mmol/L Potassium 3.9 (3.3-5.1) mmol/L Chloride 107 (96-108) mmol/L Carbon Dioxide 25 (22-29) mmol/L Anion Gap 12 (12-20) BUN 24 H (9-16) mg/dL Creatinine 1.09 (0.5-1.4) mg/dL Estim Creat Clear Calc 46.2 Estimated GFR 50 Random Glucose 149 H (60-115) mg/dL Calcium 9.5 (8.4-10.2) mg/dL Total Bilirubin 1.0 (0.0-1.0) mg/dL AST 21 (5-31) U/L ALT 22 (0-31) U/L Alkaline Phosphatase 70 (39-117) U/L Troponin I High Sens < 2.7 (<3.5-17.0) ng/L Total Protein 7.4 (6.5-8.0) g/dL Albumin 4.3 (3.5-5.0) g/dL Independent Interpretation I performed an independent interpretation of an: EKG and Plain X-Ray Interpretation: My independent interpretation patient's chest x-ray is as follows: No acute disease My independent interpretation patient's 12 EKG done at 21:08 hours is as follows: Normal sinus rhythm with a rate of 71, normal NM interval, QRS duration QTC interval, no ST segment elevation, no ST segment depression, Q-waves in lead 3 and AVF, poor R-wave progression, no significant T-wave abnormalities, no PACs, no PVCs Radiology Impression Discussion of test interpretation with radiology: I have reviewed the radiologist's reading. Radiologist Impression: XR chest 2V IMPRESSION: No evidence of acute disease Dictated By: Paxton Lugo MD Discharge Plan Discharge Clinical Impression: Chest pain Patient Disposition: Home, Self-Care Instructions: Noncardiac Chest Pain (ED) Additional Instructions: Your blood work was normal. Your high sensitive troponin I (marker of heart damage) was normal which is reassuring. Your EKG was unremarkable and not changed from your previous EKGs. Your chest x-ray was normal as well. At this time I do not think that the pain that your having throughout the day today is caused by your heart but is more related to inflammation and spasm of the muscles of your chest wall. Continue taking medications as prescribed by your providers. Take Tylenol (acetaminophen) 500 mg pills, 2 pills every 6 hours as needed for pain or fever. Follow-up with your doctor in 2 days. Please return to the emergency department if your symptoms get worse or if you develop any symptoms that are concerning to you. Prescriptions: No Action metoprolol succinate 100 mg tablet extended release 24 hr 100 mg PO DAILY Qty: 90 1RF buspirone 5 mg tablet 5 mg PO TID Qty: 90 5RF amlodipine 5 mg tablet 5 mg PO DAILY Qty: 30 5RF aspirin [Adult Low Dose Aspirin] 81 mg tablet,delayed release (DR/EC) 81 mg PO DAILY atorvastatin 40 mg tablet 40 mg PO DAILY Rx Instructions: QOD latanoprost 0.005 % drops ophthalmic (eye) cholecalciferol (vitamin D3) 25 mcg (1,000 unit) capsule 25 mcg PO DAILY multivitamin Tablet 1 tab PO DAILY lisinopril 30 mg tablet 30 mg PO DAILY 30 Days Qty: 30 2RF Print Language: Latvian
[2023-11-22 04:35] VITALS: BP 168/90; PULSE 61; RESP 14; TEMP 36.2; O2SAT 97
== END 2023-11-22 04:36 | disposition home or self-care (01) ==
PROVIDERS: Emergency Provider Emergency Medicine Emergency Medical Services; PCP Internal Medicine
DX: R07.89 Other chest pain (principal); Z79.899 Other long term (current) drug therapy
CPT/HCPCS: 36415; 71046; 80053; 84484; 85025; 93005; 99283; 99285

== ENCOUNTER → 2023-11-21 21:08 | Outpatient (BNV) | payer MEDICARE, SELFPAY | PROVIDERS: Emergency Provider Emergency Medicine Emergency Medical Services; PCP Internal Medicine; Visit Provider Internal Medicine Cardiovascular Disease | DX: R94.31 Abnormal electrocardiogram [ECG] [EKG] (principal) | CPT/HCPCS: 93010 ==

== ENCOUNTER 2023-11-26 07:08 | Outpatient (REF) | payer MEDICARE, SELFPAY ==
[2023-11-26 08:20] LABS: Alanine Aminotransferase 18 U/L (0-31); Albumin Level 4.5 g/dL (3.5-5.0); Alkaline Phosphatase 60 U/L (39-117); Anion Gap 11 (12-20); Aspartate Amino Transferase 21 U/L (5-31); Bilirubin Total 1.8 mg/dL (0.0-1.0); Blood Urea Nitrogen 19 mg/dL (9-16); Calcium 9.6 mg/dL (8.4-10.2); Carbon Dioxide 27 mmol/L (22-29); Chloride 108 mmol/L (96-108); Cholesterol 153 mg/dL (<200); Estimated Glomerular Filt Rate > 60; Glucose Fasting 111 mg/dL (60-99); HDL Cholesterol 52 mg/dL (>40); LDL Cholesterol Calculated 83 mg/dL (<100); Potassium 4.6 mmol/L (3.3-5.1); Sodium 141 mmol/L (135-145); Total Protein 7.8 g/dL (6.5-8.0); Triglycerides 94 mg/dL (<150)
[2023-11-26 08:40] LABS: Vitamin D 25-OH Total 56.6 ng/mL (>30)
== END 2023-11-26 07:09 | disposition home or self-care (01) ==
LOC: HO.LAB 07:08
PROVIDERS: PCP Internal Medicine; Visit Provider Internal Medicine
DX: E78.5 Hyperlipidemia, unspecified (principal); I10 Essential (primary) hypertension
CPT/HCPCS: 36415; 80053; 80061; 82306; 82550

== ENCOUNTER → 2023-11-29 13:45 | Outpatient (REF) | payer MEDICARE, SELFPAY ==
--- NOTE | 2023-11-29 13:48 | CA_ITS ---
Transthoracic Echocardiogram Patient (Last, First, Middle): Caitlin Carlos, Gender: Female Date of : 1955 Age: 68 Procedure Date: 11/29/2023 Procedure Type: Transthoracic Echocardiogram Location: OP Height: 160.02 cm Weight: 68.95 kg BSA: 1.72 m2 Heart Rate: 61 bpm BP: 122 / 80 mmHg Business Process Specialist: NORA Referring MD: Koki Littlejohn NP Symptoms: I25.10 - Atherosclerotic heart disease of [place] coronary artery without... Study Quality: Adequate ECG Rhythm: Sinus Conclusions: - The left ventricular systolic function is normal. The calculated ejection fraction is 61% by biplane method. - No obvious valvular pathology seen on this study. - Small plaque is seen in the sino tubular ridge. Findings Left Ventricle Normal left ventricular cavity size. There is moderately increased left ventricular wall thickness. The left ventricular systolic function is normal. The calculated ejection fraction is 61% by biplane method. There is no evidence of regional wall motion abnormalities. Diastolic function is normal for age. Right Ventricle Normal right ventricular cavity size and systolic function. Atria Both atria are normal in size. Aortic Valve There is a normal trileaflet aortic valve. There is mild calcification of the aortic valve. There is no aortic valve stenosis. There is no aortic valve regurgitation. Mitral Valve The mitral valve appears normal. There is no mitral valve regurgitation. There is no mitral valve stenosis. Pulmonic Valve The pulmonic valve is likely normal. Tricuspid Valve There is mild tricuspid valve regurgitation. There is no evidence of pulmonary hypertension. Great Vessels The asc aorta is normal in size. Small plaque is seen in the sino tubular ridge. Venous The inferior vena cava is normal in size and collapses greater than 50% with inspiration. Pericardium/Pleural There is no evidence of pericardial effusion. Prior Study Comparison No significant change compared to prior study dated: 01/31/2020. Recommendations, Care & Conclusions No obvious valvular pathology seen on this study. Measurements 2D Linear Measurements IVSd: 1.36 0.6-0.9/0.6-1.0 cm LVIDd: 2.72 3.9-5.3/4.2-5.9 cm LVIDd Index: 1.58 2.4-3.2/2.2-3.1 cm/m2 LVIDs: 1.70 2.0-3.6 cm LVPWd: 1.39 0.7-1.1 cm LA Diam: 2.80 2.7-3.8/3.0-4.0 cm LAIDs Index: 1.63 1.5-2.3 cm/m2 LV Mass: 149.29 67-162/88-224 g LV Mass Index: 86.79 43-95/49-115 g/m2 LVOT Diam: 1.90 3.0+(-)1.3 cm 2D Systolic Function EF 4C: 63.90 >55% EF 2C: 57.70 >55% EF BiP: 60.70 >55% Mitral Valve MV Pk E: 0.69 MV PK A: 0.78 MV Decel Time: 283.00 E/A: 0.90 E'Lateral: 9.79 E'Medial: 5.98 E/E' Med: 11.50 E/E' Lat: 7.00 PHT: 83.00 MVA PHT: 2.65 Decel [place]: 2.43 Aortic Valve AoV Pk Robert: 1.55 AoV Mn Robert: 1.06 AoV VTI: 0.35 AoV Pk Grad: 10.00 Aov Mn Grad: 5.00 JR Cont.VTI: 2.00 LVOT LVOT Pk Robert: 1.15 LVOT Mn Robert: 0.70 LVOT VTI: 0.25 LVOT Pk Grad: 5.00 LVOT Mn Grad: 2.00 LVOT Diam: 1.90 LVOT Area: 2.84 Diastolic Function MV Pk E: 0.69 MV Pk A: 0.78 E/A: 0.90 E'Medial: 5.98 E/E' Med: 11.50 E' Laterial: 9.79 E/E' Lat: 7.00 Right Ventricle TAPSE (mm): 23.00 TVS' Robert: 10.00 Tricuspid Valve TR Pk Robert: 2.01 TR Pk Grad: 16.00 RA Press: 3.00 RVSP: 19.00 Great Vessels Aorta Sinus of Valsalva: 3.40 2.0-3.5 cm Ao Asc: 3.00 2.1-3.4 cm Pulmonary Valve PV Pk Robert: 0.94 Peak PV Grad: 4.00 Updated in Other Vendor System with Status of Final Torey Wilde MD electronically signed on 11/29/2023 3:34:26 PM with status of Final
== END ==
LOC: HO.CARD 13:45
PROVIDERS: PCP Internal Medicine; Visit Provider Nurse Practitioner
DX: I25.10 Atherosclerotic heart disease of native coronary artery without angina pectoris (principal)
CPT/HCPCS: 93306

== ENCOUNTER → 2023-11-29 13:48 | Outpatient (BNV) | payer MEDICARE, SELFPAY | PROVIDERS: PCP Internal Medicine; Visit Provider Internal Medicine | DX: I36.1 Nonrheumatic tricuspid (valve) insufficiency (principal); I25.10 Atherosclerotic heart disease of native coronary artery without angina pectoris | CPT/HCPCS: 93306 ==

== ENCOUNTER 2023-12-07 14:20 | Outpatient (AMB) | payer MEDICARE, SELFPAY ==
--- NOTE | 2023-12-07 14:43 | MHC.OFFVIS ---
Vital Signs 12/07/23 14:44 Height 5 ft 3 in Weight 155 lb 3.287 oz BMI 27.5 BP 120/68 Blood Pressure Location Lt brachial Position Sitting Pulse 89 Pulse Source Pulse Oximeter Pulse Oximetry (%) 99 Oxygen Delivery Method Room Air Intake Visit Reasons: r/s followup echo/stress test Allergies No Known Allergies Allergy (Verified 11/21/23 21:15) HPI Comments Details: 68-year-old female presents today for a follow-up. She reports she has been doing well. History of myocardial infarct, HTN, dyslipidemia, and impaired fasting glucose. She reports she no longer having chest pains but has noticed she has lost some weight recently with hot flashes which she is going to discuss with her primary provider at her upcoming appointment. She reports she has already gone through menopause many years ago. She has not taken amlodipine. Her systolic blood pressures have been 107-125 at home. PENDING SALE TO [facility] Medical History Hot flashes Chest pain Impaired fasting glucose History of adenomatous polyp of colon Osteopenia of lumbar spine Insomnia disorder, with non-sleep disorder mental comorbidity Dyslipidemia Anxiety and depression Postmenopause Positional lightheadedness HTN (hypertension) Myocardial infarct Surgical History Hx of colonoscopy H/O tubal ligation Hx of tonsillectomy Hx of cardiac cath Family History Father CVD (cardiovascular disease) Substance use disorder Mother CVD (cardiovascular disease) Brother Substance use disorder Mental health disorder Son Substance use disorder Social History Housing: House Alcohol intake: never Patient Tobacco Use Status: Former Tobacco user e-Cigarette/Vaping Use: Never Used service: No Current occupational status: employed and retired Cognitive needs: No Hearing needs: No Vision needs: Yes Physical Exam Vital Signs: Last Vital Signs Pulse 89 12/07/23 14:44 BP 120/68 12/07/23 14:44 Pulse Ox 99 12/07/23 14:44 Oxygen Delivery Method Room Air 12/07/23 14:44 BMI result Body Mass Index 27.5 Const General: healthy appearing and no acute distress Orientation/consciousness: patient oriented x3 HEENT Head: Yes normal to inspection Eyes General: appearance normal, both eyes and all related structures Neck Neck: Yes normal visual inspection Chest Chest palpation & inspection: normal inspection of the chest Resp Effort & Inspection: normal respiratory effort Auscultation: clear to auscultation bilaterally Cardio Jugular venous distension: no JVD Palpation: normal PMI Rate: regular rate Rhythm: regular rhythm Heart sounds: S1 normal heart sound present, S2 normal heart sound present, no click, no gallops, no murmurs and no rubs GI Inspection: Yes normal to inspection Palpation (GI): Soft to palpation Skin General skin exam: no rashes or lesions noted Neuro General: patient oriented x3 Extrem General: Yes normal to inspection Psych Appearance: grossly normal Results Reviewed Results Reviewed: NM/NM cardiolite stress test Impression: 1. Normal myocardial perfusion 2. Gated LVEF is 71% 3. Transient ischemic dilatation not present Echo Conclusions: - The left ventricular systolic function is normal. The calculated ejection fraction is 61% by biplane method. - No obvious valvular pathology seen on this study. - Small plaque is seen in the sino tubular ridge. Assessment & Plan Assessment & Plan (1) Chest pain: Code(s): R07.9 - Chest pain, unspecified Category: Medical Plan: Chest pain has resolved. Nuclear imaging shows normal perfusion. (2) Hypertension: Code(s): I10 - Essential (primary) hypertension Category: Medical Qualifiers: Hypertension type: primary hypertension Qualified Code(s): I10 - Essential (primary) hypertension Plan: Blood pressure improved with lisinopril 30mg. Home blood pressures have been acceptable. Continue to monitor. (3) CAD (coronary artery disease): Code(s): I25.10 - Atherosclerotic heart disease of [place] coronary artery without angina pectoris Category: Medical Plan: Small plaque is seen in the sino tubular ridge seen on echo. She is currently on atorvastatin 40mg 3x per week. She is working on increasing it to daily slowly. Heart healthy diet and no added salt encouraged. (4) Weight loss: Code(s): R63.4 - Abnormal weight loss Plan: patient reports recently weight loss. About 10 lbs since last visit on our records. She reports she is eating less. I added a TSH to check for thyroid dysfunction. She is due to see her PCP soon and she plans to mention it. Orders: Orders TSH reflex Free T4 12/07/23 R23.2 - [place] Coding Level of Care Code Est Pt Level 4 (63816) Diagnoses Chest pain R07.9 Primary hypertension I10 Hypertension type: primary hypertension CAD (coronary artery disease) I25.10 Weight loss R63.4
[2023-12-07 14:44] VITALS: BP 120/68; PULSE 89; O2SAT 99; BMI 27.5
== END 2023-12-07 15:19 | disposition home or self-care (01) ==
PROVIDERS: PCP Internal Medicine; Visit Provider Nurse Practitioner
DX: R07.9 Chest pain, unspecified (principal); I10 Essential (primary) hypertension; I25.10 Atherosclerotic heart disease of native coronary artery without angina pectoris; R63.4 Abnormal weight loss
CPT/HCPCS: 99214

== ENCOUNTER → 2023-12-07 14:20 | Outpatient (BNVA) | payer MEDICARE, SELFPAY | PROVIDERS: PCP Internal Medicine; Visit Provider Nurse Practitioner | DX: R07.9 Chest pain, unspecified (principal); I10 Essential (primary) hypertension; I25.10 Atherosclerotic heart disease of native coronary artery without angina pectoris; R63.4 Abnormal weight loss | CPT/HCPCS: 99212 ==

== ENCOUNTER 2023-12-20 08:48 | Outpatient (REF) | payer MEDICARE, SELFPAY | END 2023-12-20 08:49 | disposition home or self-care (01) | LOC: HO.LAB 08:48 | PROVIDERS: PCP Internal Medicine; Visit Provider Nurse Practitioner | DX: R23.2 Flushing (principal) | CPT/HCPCS: 36415; 84443 ==

== ENCOUNTER 2023-12-29 13:59 | Outpatient (AMB) | payer MEDICARE, SELFPAY ==
--- NOTE | 2023-12-29 14:06 | MHC.PC.OV ---
Vital Signs 12/29/23 14:07 Height 5 ft Weight 157 lb BMI 30.7 BP 122/80 Blood Pressure Location Lt brachial Position Sitting Pulse 65 Pulse Source Pulse Oximeter Pulse Oximetry (%) 98 Oxygen Delivery Method Room Air Intake Visit Reasons: f/u labs Intake Note: Pt is here today to discuss recent lab results and physical exam Allergies No Known Allergies Allergy (Verified 12/30/23 03:06) Medication List - Last Reconciled 12/30/23 by Tonie Cheema MD aspirin (Adult Low Dose Aspirin) 81 mg PO DAILY atorvastatin 40 mg PO DAILY buspirone 5 mg PO TID cholecalciferol (vitamin D3) 25 mcg PO DAILY latanoprost 0.005% drps ophthalmic (eye) lisinopril 30 mg PO DAILY 30 days metoprolol succinate ER 100 mg PO DAILY Tobacco use date assessed: 12/29/23 Fall risk assessment: No Falls in past year Last assessed Fall Risk: 12/29/23 Dental Screening Dental Screen Date: 12/29/23 Did you have a dental visit in the last 12 months?: Yes Did you have a dental problem in the last 6 months where you did not have access to dental care?: No Was dental information given to patient?: Patient has dentist HPI f/u labs HPI Details 68-year-old lady here today for physical exam. She has hypertension, currently on lisinopril 30 mg daily and metoprolol succinate ER 100 mg once a day, with blood pressure controlled with current treatment. She has glaucoma currently followed by Dr. Carlos Arana in [place].. She has anxiety and depression currently stable controlled on buspirone 5 mg taken tab 1 tablet 3 times a day. She is currently on atorvastatin 40 mg 3 times a week for hypercholesterolemia, with latest fasting lipids within normal limits She is up-to-date with her screening mammogram due again next month, and had a bone density scan done in 2021 which showed presence of osteopenia beginning in her lumbar spine, normal in her left femoral neck and left femur. No history of fractures. She had a screening colonoscopy done by Dr. Dupont in 2019 with removal of a tubular adenoma polyp,colonoscopy due again in 2024. Patient has been complaining of recurrent heartburn symptoms with a bitter taste in the back of her throat when she wakes up in the morning. She also reports seeing crystals in her urine at times. Denies any urinary frequency but occasional urinary hesitancy noted. No dysuria, nausea or fever reported. [facility] Medical History Hot flashes Chest pain Impaired fasting glucose History of adenomatous polyp of colon Osteopenia of lumbar spine Insomnia disorder, with non-sleep disorder mental comorbidity Dyslipidemia Anxiety and depression Postmenopause Positional lightheadedness HTN (hypertension) Myocardial infarct Surgical History Hx of colonoscopy H/O tubal ligation Hx of tonsillectomy Hx of cardiac cath Family History Father CVD (cardiovascular disease) Substance use disorder Mother CVD (cardiovascular disease) Brother Substance use disorder Mental health disorder Son Substance use disorder Social History Housing: House Alcohol intake: never Patient Tobacco Use Status: Former Tobacco user e-Cigarette/Vaping Use: Never Used service: No Current occupational status: employed and retired Cognitive needs: No Hearing needs: No Vision needs: Yes Questionnaire PHQ-9 Over the last 2 weeks, how often have you been bothered by any of the following problems? Depression Screening Interpretation: Negative Depression Screening Done: Yes Source: Developed by Drs. Fahad Torres, Ellie Unger, Van Peterson and colleagues, with an educational donavan from [employer]. Thrive Questionnaire Date Thrive assessed: 09/09/23 EDDIE-7 AMB Questionnaire EDDIE-7 Date EDDIE - 7 assessed: 09/09/23 Source: Developed by Drs. Fahad Torres, Ellie Unger, Van Peterson and colleagues, with an educational donavan from [employer]. Review of Systems Const Denies fatigue, Denies fever(s), Denies frequent falls and Denies weakness Eyes Details: sees Ophthalmology in [place] for glaucoma, Dr Carlos Arana ENT Denies dizziness Card Denies chest pain, Denies leg edema, Denies lightheadedness, Denies palpitations, Denies dyspnea and Denies dyspnea on exertion Resp Denies cough, Denies dyspnea and Denies dyspnea on exertion GI Denies abdominal pain, Denies melena, Denies bloating, Denies hematochezia, Denies change in bowel habits and Denies heartburn Reports as per HPI Musc Denies abnormal gait, Denies back pain, Denies joint swelling, Denies muscle cramps, Denies muscle weakness, Denies numbness and Reports stiffness Skin/Breast Denies breast pain, Denies breast mass and Denies rash Neuro Denies abnormal gait, Denies dizziness, Denies frequent falls, Denies numbness and Denies weakness Psych Reports no additional complaints Endo Denies fatigue and Denies palpitations Preston/Lymph Reports no additional complaints Aller/Immun Reports no additional complaints Physical exam (Primary Care) Vital Signs: Last Vital Signs Pulse 65 12/29/23 14:07 BP 122/80 12/29/23 14:07 Pulse Ox 98 12/29/23 14:07 Oxygen Delivery Method Room Air 12/29/23 14:07 BMI result Body Mass Index 30.7 Tobacco/Smoking Status: Tobacco use Status Tobacco use date assessed 12/29/23 12/29/23 14:08 Patient Tobacco Use Status Former Tobacco user 12/29/23 14:08 e-Cigarette/Vaping Use Never Used 12/29/23 14:08 Depression Screening Interpretation: Negative Thrive Assessment: Date of Thrive Assessment Date Thrive assessed 09/09/23 12/29/23 14:08 Const Other: Alert oriented x3, no acute cardiorespiratory distress noted ambulatory with normal gait Orientation/consciousness: patient oriented x3 [facility] Head: Yes normocephalic Ears: external ears normal Face and sinus: Yes face symmetric Mouth: Normal oral and palatal mucosa present, oropharynx normal and moist mucous membranes Eyes General: appearance normal, both eyes and all related structures Neck Neck: Yes full ROM, Yes no lymphadenopathy and Yes supple Chest Breast/axilla palpation: normal palpation of the breasts Resp Auscultation: clear to auscultation bilaterally Cardio Other: S1-S2 present regular rate and rhythm GI Inspection: Yes normal to inspection Palpation (GI): Soft to palpation, nontender, no guarding and no masses Auscultation: normal bowel sounds General: Yes no CVA tenderness Back/Spine/Pelvis Back: no CVA tenderness and No back tenderness Skin General skin exam: no rashes or lesions noted Neuro General: patient oriented x3, gait normal, moves all extremities, Normal light touch and pain sensation, no focal motor deficits and CN's II-XI intact bilaterally Extrem General: Yes full ROM, Yes no joint enlargement, Yes no clubbing, cyanosis or edema and Yes normal gait Psych Appearance: grossly normal and well kempt Mental Status: mental status grossly normal Speech and movement: Normal speech and movement present Affect: normal affect Thought process: Normal thought process present Results Reviewed Results Reviewed: Laboratory Tests 06/23/21 10/10/21 12/20/23 11:45 08:40 09:00 Hgb 13.5 Sodium 139 Potassium 4.8 Chloride 106 Carbon Dioxide 26 Anion Gap 12 BUN 11 Creatinine 0.78 0.79 Estimated GFR > 60 Fasting Glucose 111 H Calcium 9.7 D AST 23 ALT 21 Triglycerides 82 Cholesterol 164 LDL Cholesterol, Calc 92 HDL Cholesterol 56 25-OH Vitamin D Total 57.3 TSH 1.00 Assessment and Plan Assessment & Plan (1) Annual visit for general adult medical examination with abnormal findings: Code(s): Z00.01 - Encounter for general adult medical examination with abnormal findings Plan: Reviewed recent fasting lab results with patient. Continue with regular dental visit every 6 months and regular eye exams,, sees Dr. Carlos Arana . Take adequate calcium in diet and vitamin-D 3 at 2000 IU per cap once a day, in addition to weight-bearing exercises to help maintain good muscle tone and weight control. Instructed to do self-breast exam, and yearly mammogram, due again next month. Up-to-date with her bone density scan and screening colonoscopy. She is up-to-date with all her vaccinations (2) Hypertension: Code(s): I10 - Essential (primary) hypertension Qualifiers: Hypertension type: primary hypertension Qualified Code(s): I10 - Essential (primary) hypertension Plan: Blood pressure at goal of less than 130/80. Continue with current medication. Reinforced importance of following a low sodium diet, getting regular exercise, and lowering stress levels. (3) Dyslipidemia: Code(s): E78.5 - Hyperlipidemia, unspecified Plan: Fasting lipid panel within normal limits, continued on atorvastatin takes 40 mg 3 times a week (4) Impaired fasting glucose: Code(s): R73.01 - Impaired fasting glucose Plan: Recent fasting blood sugar was elevated above 100 mg/dL. Impaired glucose metabolism increases the risk for developing diabetes mellitus type 2, as well as heart attack and stroke later on. Lifestyle changes at just weight loss, healthy eating habits, and regular exercise are important, and can prevent the progression to diabetes (5) Heartburn: Code(s): R12 - Heartburn Plan: Ordered an upper GI series (6) Urinary hesitancy: Code(s): R39.11 - Hesitancy of micturition Plan: Urinalysis with reflex culture and sensitivity ordered Orders: Orders Creatine Kinase Total 02/12/24 E78.5 - Hyperlipidemia, unspecified, I10 - Essential (primary) hypertension, R73.01 - Impaired fasting glucose [place] upper GI series 12/29/23 R12 - Heartburn Lipid Panel 02/12/24 E78.5 - Hyperlipidemia, unspecified, I10 - Essential (primary) hypertension, R73.01 - Impaired fasting glucose Comprehensive [place]. Panel Fast 02/12/24 E78.5 - Hyperlipidemia, unspecified, I10 - Essential (primary) hypertension, R73.01 - Impaired fasting glucose Hemoglobin A1c 02/12/24 E78.5 - Hyperlipidemia, unspecified, I10 - Essential (primary) hypertension, R73.01 - Impaired fasting glucose UA CC w/rflx Micro + Cult 12/29/23 R39.11 - Hesitancy of micturition Coding Level of Care Code Est Pt Prev Care >65y([id number]) Diagnoses Annual visit for general adult medical examination with abnormal findings Z00.01 Primary hypertension I10 Hypertension type: primary hypertension Dyslipidemia E78.5 Impaired fasting glucose R73.01 Heartburn R12 Urinary hesitancy R39.11
[2023-12-29 14:07] VITALS: BP 122/80; PULSE 65; O2SAT 98; BMI 30.7
== END 2023-12-29 15:37 | disposition home or self-care (01) ==
LOC: HO.HMGC 13:59
PROVIDERS: PCP Internal Medicine; Visit Provider Internal Medicine
DX: Z00.01 Encounter for general adult medical examination with abnormal findings (principal); I10 Essential (primary) hypertension; E78.5 Hyperlipidemia, unspecified; R73.01 Impaired fasting glucose; R12 Heartburn; R39.11 Hesitancy of micturition
CPT/HCPCS: 99397

== ENCOUNTER 2024-01-06 12:33 | Outpatient (REF) | payer MEDICARE, SELFPAY ==
[2024-01-06 14:07] LABS: Appearance Urine Clear; Color Urine Yellow; Glucose Urine UA Negative (Negative); Leukocyte Esterase Urine Negative (Negative); Nitrite Urine Negative (Negative); Urine Blood Negative (Negative); Urine Ketones Negative (Negative); Urine Protein Negative (Neg-Trace)
== END 2024-01-06 12:34 | disposition home or self-care (01) ==
LOC: HO.LAB 12:33
PROVIDERS: PCP Internal Medicine; Visit Provider Internal Medicine
DX: R39.11 Hesitancy of micturition (principal)
CPT/HCPCS: 81003

== ENCOUNTER 2024-01-14 08:32 | Outpatient (REF) | payer MEDICARE, SELFPAY | END 2024-01-14 08:33 | disposition home or self-care (01) | LOC: HO.MAMMO 08:32 | PROVIDERS: PCP Internal Medicine; Visit Provider Internal Medicine | DX: Z12.31 Encounter for screening mammogram for malignant neoplasm of breast (principal) | CPT/HCPCS: 77063; 77067 ==

== ENCOUNTER → 2024-01-14 08:45 | Outpatient (BNV) | payer MEDICARE, SELFPAY | PROVIDERS: PCP Internal Medicine; Visit Provider Radiology Diagnostic Radiology | DX: Z12.31 Encounter for screening mammogram for malignant neoplasm of breast (principal) | CPT/HCPCS: 77063; 77067 ==

== ENCOUNTER 2024-01-22 07:22 | Outpatient (REF) | payer MEDICARE, SELFPAY ==
[2024-01-22 08:04] LABS: Estimated Average Glucose 97 mg/dL
[2024-01-22 08:18] LABS: Alanine Aminotransferase 20 U/L (0-31); Albumin Level 4.5 g/dL (3.5-5.0); Alkaline Phosphatase 57 U/L (39-117); Anion Gap 12 (12-20); Aspartate Amino Transferase 22 U/L (5-31); Bilirubin Total 1.5 mg/dL (0.0-1.0); Blood Urea Nitrogen 16 mg/dL (9-16); Calcium 9.7 mg/dL (8.4-10.2); Carbon Dioxide 26 mmol/L (22-29); Chloride 108 mmol/L (96-108); Cholesterol 148 mg/dL (<200); Estimated Glomerular Filt Rate > 60; Glucose Fasting 116 mg/dL (60-99); HDL Cholesterol 58 mg/dL (>40); LDL Cholesterol Calculated 77 mg/dL (<100); Potassium 4.5 mmol/L (3.3-5.1); Sodium 141 mmol/L (135-145); Total Protein 7.6 g/dL (6.5-8.0); Triglycerides 66 mg/dL (<150)
== END 2024-01-22 07:23 | disposition home or self-care (01) ==
LOC: HO.LAB 07:22
PROVIDERS: PCP Internal Medicine; Visit Provider Internal Medicine
DX: R73.01 Impaired fasting glucose (principal); E78.5 Hyperlipidemia, unspecified; I10 Essential (primary) hypertension
CPT/HCPCS: 36415; 80053; 80061; 82550; 83036

== ENCOUNTER 2024-02-24 10:17 | Outpatient (AMB) | payer MEDICARE, SELFPAY ==
--- NOTE | 2024-02-24 10:38 | MHC.PC.OV ---
Vital Signs 02/24/24 10:39 Height 5 ft Weight 152 lb BMI 29.7 BP 122/80 Blood Pressure Location Rt brachial Position Sitting Pulse 62 Pulse Source Pulse Oximeter Pulse Oximetry (%) 98 Oxygen Delivery Method Room Air Intake Visit Reasons: follow up end january per AE Intake Note: pt is here for follow up regarding labs Accompanied by: Self / Same As Patient Allergies No Known Allergies Allergy (Verified 02/24/24 11:11) Medication List - Last Reconciled 02/24/24 by Tonie Cheema MD aspirin (Adult Low Dose Aspirin) 81 mg PO DAILY atorvastatin 40 mg PO 3XW buspirone 5 mg PO TID cholecalciferol (vitamin D3) 25 mcg PO DAILY latanoprost 0.005% drps ophthalmic (eye) lisinopril 30 mg PO DAILY 30 days magnesium 250 mg PO DAILY metoprolol succinate ER 100 mg PO DAILY Tobacco use date assessed: 12/29/23 Fall risk assessment: No Falls in past year Last assessed Fall Risk: 02/24/24 Dental Screening Dental Screen Date: 12/29/23 HPI follow up end january per AE HPI Details 69-year-old lady here today for follow-up. She has hypertension, currently on lisinopril 30 mg daily and metoprolol succinate ER 100 mg once a day, with blood pressure controlled with current treatment. She has glaucoma currently followed by Dr. Carlos Arana in [place].. She has anxiety and depression currently stable on buspirone 5 mg takes 1 tablet 3 times a day. She is currently on atorvastatin 40 mg 3 times a week for hypercholesterolemia, with latest fasting lipids within normal limits [facility] Medical History (Updated 02/24/24 @ 11:30 by Tonie Cheema MD) Hot flashes Chest pain Impaired fasting glucose History of adenomatous polyp of colon Osteopenia of lumbar spine Insomnia disorder, with non-sleep disorder mental comorbidity Dyslipidemia Anxiety and depression Postmenopause Positional lightheadedness HTN (hypertension) Myocardial infarct Surgical History Hx of colonoscopy H/O tubal ligation Hx of tonsillectomy Hx of cardiac cath Family History Father CVD (cardiovascular disease) Substance use disorder Mother CVD (cardiovascular disease) Brother Substance use disorder Mental health disorder Son Substance use disorder Social History Housing: House Alcohol intake: never Patient Tobacco Use Status: Former Tobacco user e-Cigarette/Vaping Use: Never Used service: No Current occupational status: employed and retired Cognitive needs: No Hearing needs: No Vision needs: Yes Questionnaire PHQ-9 Over the last 2 weeks, how often have you been bothered by any of the following problems? 1. Little interest or pleasure in doing things: not at all 2. Feeling down, depressed, or hopeless: not at all 3. Trouble falling or staying asleep, or sleeping too much: not at all 4. Feeling tired or having little energy: several days 5. Poor appetite or overeating: several days 6. Feeling bad about yourself - or that you are a failure or have let yourself or your family down: not at all 7. Trouble concentrating on things, such as reading the newspaper or watching television: not at all 8. Moving or speaking so slowly that other people could have noticed. Or the opposite - being so fidgety or restless that you have been moving around a lot more than usual: not at all 9. Thoughts that you would be better off or of hurting yourself in some way: not at all Total score: 2 Depression Screening Interpretation: Negative Depression Screening Done: Yes 65317 - PHQ-9 Billing: Yes Source: Developed by Drs. Fahad Torres, Ellie Unger, Van Peterson and colleagues, with an educational donavan from [employer]. Thrive Questionnaire Date Thrive assessed: 02/24/24 I am a: Patient What is your living situation today?: I have a steady place to live Within the past 12 months, did the food you bought not last and you didn't have the money to get more?: Never true Within the past 12 months, did you worry whether your food would run out before you got money to buy more?: Never true Do you have trouble paying for medicines?: No Do you have trouble getting transportation to medical appointments?: No Do you have trouble paying your heating and electricity bill?: No Do you have trouble taking care of your child, family member or friend?: No Do you have trouble with day-to-day activities such as bathing, preparing meals, shopping, managing finances, etc.?: No Are you currently unemployed and looking for a job?: No Are you interested in more education?: No Please select the resources that you would like help with: Housing/Alf Currently or been in a relationship where the following occur: No concerns reported THRIVE Score: 0 AUDIT C Alcohol Use Questionnaire (AUDIT-C) 1. How often do you have a drink containing alcohol?: Monthly or less 2. How many drinks containing alcohol do you have on a typical day when you are drinking?: 3 or 4 3. How often do you have six or more drinks on one occasion?: Never Total Score: 2 Score Reviewed/Action Taken: Yes EDDIE-7 AMB Questionnaire EDDIE-7 Date EDDIE - 7 assessed: 02/24/24 Feeling nervous, anxious, or on edge: 0 = Not at all Not being able to stop or control worryin = Several days Worrying too much about different things: 1 = Several days Trouble relaxin = Several days Being so restless that it is hard to sit still: 0 = Not at all Becoming easily annoyed or irritable: 0 = Not at all Feeling afraid as if something awful might happen: 0 = Not at all Total EDDIE-7 score (0-4 normal; 5-9 mild; 10-14 moderate; 15-21 severe): 3 Source: Developed by Drs. Fahad Torres, Ellie Unger, Van Peterson and colleagues, with an educational donavan from [employer]. EDDIE-7 Assessment Billing EDDIE-7 Assessment Tool: EDDIE-7 Assessment 30418 Review of Systems Const Denies fatigue, Denies fever(s), Denies frequent falls and Denies weakness Eyes Details: sees Ophthalmology in [place] for glaucoma, Dr Carlos Arana ENT Denies dizziness Card Denies chest pain, Denies leg edema, Denies lightheadedness, Denies palpitations, Denies dyspnea and Denies dyspnea on exertion Resp Denies cough, Denies dyspnea and Denies dyspnea on exertion GI Denies abdominal pain, Denies melena, Denies bloating, Denies hematochezia, Denies change in bowel habits and Denies heartburn Musc Denies abnormal gait, Denies back pain, Denies joint swelling, Denies muscle cramps, Denies muscle weakness, Denies numbness and Reports stiffness Skin/Breast Denies breast pain, Denies breast mass and Denies rash Neuro Denies abnormal gait, Denies dizziness, Denies frequent falls, Denies numbness and Denies weakness Psych Reports no additional complaints Endo Denies fatigue and Denies palpitations Preston/Lymph Reports no additional complaints Aller/Immun Reports no additional complaints Physical exam (Primary Care) Vital Signs: Last Vital Signs Pulse 62 02/24/24 10:39 BP 122/80 02/24/24 10:39 Pulse Ox 98 02/24/24 10:39 Oxygen Delivery Method Room Air 02/24/24 10:39 BMI result Body Mass Index 29.7 Tobacco/Smoking Status: Tobacco use Status Tobacco use date assessed 12/29/23 02/24/24 10:40 Patient Tobacco Use Status Former Tobacco user 02/24/24 10:40 e-Cigarette/Vaping Use Never Used 02/24/24 10:40 PHQ-9: PHQ-9 Score PHQ-9: Total score 2 02/24/24 11:10 Depression Screening Interpretation: Negative Thrive Assessment: Date of Thrive Assessment Date Thrive assessed 02/24/24 02/24/24 10:40 Currently or been in a relationship where the following occur: No concerns reported Const Other: Alert oriented x3, no acute cardiorespiratory distress noted ambulatory with normal gait Orientation/consciousness: patient oriented x3 [facility] Head: Yes normocephalic Ears: external ears normal Face and sinus: Yes face symmetric Mouth: Normal oral and palatal mucosa present, oropharynx normal and moist mucous membranes Eyes General: appearance normal, both eyes and all related structures Neck Neck: Yes full ROM, Yes no lymphadenopathy and Yes supple Resp Auscultation: clear to auscultation bilaterally Cardio Other: S1-S2 present regular rate and rhythm GI Inspection: Yes normal to inspection Palpation (GI): Soft to palpation, nontender, no guarding and no masses Auscultation: normal bowel sounds General: Yes no CVA tenderness Back/Spine/Pelvis Back: no CVA tenderness and No back tenderness Skin General skin exam: no rashes or lesions noted Neuro General: patient oriented x3, gait normal, moves all extremities, Normal light touch and pain sensation, no focal motor deficits and CN's II-XI intact bilaterally Extrem General: Yes full ROM, Yes no joint enlargement, Yes no clubbing, cyanosis or edema and Yes normal gait Psych Appearance: grossly normal and well kempt Mental Status: mental status grossly normal Speech and movement: Normal speech and movement present Affect: normal affect Thought process: Normal thought process present Results Reviewed Results Reviewed: Name: Caitlin Carlos Age/Sex: 68/F : 1955 Unit#: [id number] Attend Dr: Andrzej Mauricio MD Re11/21/23 Status: DEP ER Location: .ED Disch: SPEC : [id number] LUKE: 11/21/23 STATUS: COMP REQ : [id number] RECD: 11/21/[address]: Andrzej Mauricio MD COMP: 11/21/23 ENTERED: 11/21/[address]: Tonie Cheema MD [facility] ED Physician ORDERED: CBC Auto Diff Test Result Flag Reference WBC 8.0 4.8-10.8 X10*3/uL RBC 4.46 4.20-5.50 X10*6/uL HGB 13.8 12.0-16.0 g/dl HCT 41.4 37.0-47.0 % MCV 92.8 80.0-98.0 fL MCH 30.9 27.0-33.0 pg MCHC 33.3 31.0-35.0 g/dl RDW 11.4 11.0-16.0 % PLT 206 160-400 X10*3/uL MPV 9.7 9.4-12.3 fL Neut Pct Auto 51.8 45-73 % ImGran Pct Auto 0.1 0.0-0.4 % Lymp Pct Auto 35.5 20-40 % [place] Pct Auto 10.9 2-11 % Eos Pct Auto 1.3 0-4 % Baso Pct Auto 0.4 0-2 % NRBC Pct Auto 0.0 0.0-0.2 /100WBC ANC Neut Abs # 4.1 2.0-8.3 x10*3/uL ImGran Abs Auto 0.01 0.00-0.03 X10*3/uL Lymph Abs Auto 2.8 1.2-4.9 X10*3/uL [place] Abs Auto 0.9 0.1-1.2 X10*3/uL Eos Abs Auto 0.1 0.0-0.4 X10*3/uL Baso Abs Auto 0.0 0.0-0.2 X10*3/uL NRBC Abs Auto 0.000 0.0-0.012 X10*3/uL Name: Caitlin Carlos Age/Sex: 68/F : 1955 Unit#: [id number] Attend Dr: Tonie Cheema MD Re01/22/24 Status: DEP REF Location: .LAB Disch: SPEC : [id number] LUKE: 01/22/24 STATUS: COMP REQ : [id number] RECD: 01/22/[address]: Tonie Cheema MD COMP: 01/22/24 ENTERED: 01/22/[address]: ORDERED: CMP Fast, CK Total, Lipid Panel Test Result Flag Reference Sodium 141 135-145 mmol/L Potassium 4.5 3.3-5.1 mmol/L CL 108 96-108 mmol/L CO2 26 22-29 mmol/L Gap 12 12-20 BUN 16 9-16 mg/dL Creat 0.84 0.5-1.4 mg/dL EGFR > 60 NOTE: For -[place] individuals, multiply the result by 1.210. Chronic Kidney Disease: Estimated GFR < 60 mL/min/1.73m2 Severe Kidney Disease: Estimated GFR < 15 mL/min/1.73m2 FBS 116 H 60-99 mg/dL A fasting glucose from 100-125 mg/dl is considered impaired (pre-diabetes). CA 9.7 8.4-10.2 mg/dL Total Bili 1.5 H 0.0-1.0 mg/dL AST (GOT) 22 5-31 U/L ALT (GPT) 20 0-31 U/L CK Total 177 H 26-140 U/L Protein, Total 7.6 6.5-8.0 g/dL Alb 4.5 3.5-5.0 g/dL Triglyceride 66 <150 mg/dL Desirable Triglyceride: less than 150 mg/dL Borderline High Triglyceride 150-199 mg/dL High Triglyceride: 200-499 mg/dL Very High Triglyceride: greater than or equal to 5OO mg/dL Cholesterol 148 <200 mg/dL Desirable Cholesterol: less than 200 mg/dL Borderline High Cholesterol: 200-239 mg/dL High Cholesterol: greater than 239 mg/dL LDL Calculated 77 <100 mg/dL Desirable LDL: less than 100 mg/dL Near Optimal/Above Optimal LDL: 110-129 mg/dL Borderline High LDL: 130-159 mg/dL High LDL: 160-189 mg/dL Very High LDL: greater than or equal to 190 mg/dL HDL 58 >40 mg/dL Desirable HDL: greater than 40 mg/dL Note: This HDL assay may give artificially low results in patients with liver disease. Alk Phos 57 39-117 U/L Laboratory Tests 01/22/24 07:28 Estimat Average Glucose 97 Hemoglobin A1c % 5.0 Assessment and Plan Assessment & Plan (1) Impaired fasting glucose: Code(s): R73.01 - Impaired fasting glucose Plan: Latest hemoglobin A1c is within normal limits at 5% reinforced importance of following healthy diet and getting regular exercise, to prevent progression to diabetes. (2) Dyslipidemia: Code(s): E78.5 - Hyperlipidemia, unspecified Plan: Fasting lipids are within normal limits continue on atorvastatin 40 mg, taken 1 tablet 3 times a week. Stressed importance of following a low-cholesterol diet and getting regular exercise (3) Hypertension: Code(s): I10 - Essential (primary) hypertension Qualifiers: Hypertension type: primary hypertension Qualified Code(s): I10 - Essential (primary) hypertension Plan: Blood pressure at goal of less than 130/80. Continue with current medication. Reinforced importance of following a low sodium diet, getting regular exercise, and lowering stress levels. (4) Anxiety and depression: Code(s): F41.9 - Anxiety disorder, unspecified; F32.A - Depression, unspecified Plan: Stable controlled on buspirone (5) Elevated CPK: Code(s): R74.8 - Abnormal levels of other serum enzymes Orders: Orders Lipid Panel 08/02/24 E78.5 - Hyperlipidemia, unspecified, F32.A - Depression, unspecified, F41.9 - Anxiety disorder, unspecified, I10 - Essential (primary) hypertension, I25.10 - Atherosclerotic heart disease of [place] coronary artery without angina pectoris, M85.88 - Other specified disorders of bone density and structure, other site, R73.01 - Impaired fasting glucose, R74.8 - Abnormal levels of other serum enzymes, Z78.0 - Asymptomatic menopausal state Hemoglobin A1c 08/02/24 E78.5 - Hyperlipidemia, unspecified, F32.A - Depression, unspecified, F41.9 - Anxiety disorder, unspecified, I10 - Essential (primary) hypertension, I25.10 - Atherosclerotic heart disease of [place] coronary artery without angina pectoris, M85.88 - Other specified disorders of bone density and structure, other site, R73.01 - Impaired fasting glucose, R74.8 - Abnormal levels of other serum enzymes, Z78.0 - Asymptomatic menopausal state Creatine Kinase Total 08/02/24 E78.5 - Hyperlipidemia, unspecified, F32.A - Depression, unspecified, F41.9 - Anxiety disorder, unspecified, I10 - Essential (primary) hypertension, I25.10 - Atherosclerotic heart disease of [place] coronary artery without angina pectoris, M85.88 - Other specified disorders of bone density and structure, other site, R73.01 - Impaired fasting glucose, R74.8 - Abnormal levels of other serum enzymes, Z78.0 - Asymptomatic menopausal state Aspartate Amino Transferase 08/02/24 E78.5 - Hyperlipidemia, unspecified, F32.A - Depression, unspecified, F41.9 - Anxiety disorder, unspecified, I10 - Essential (primary) hypertension, I25.10 - Atherosclerotic heart disease of [place] coronary artery without angina pectoris, M85.88 - Other specified disorders of bone density and structure, other site, R73.01 - Impaired fasting glucose, R74.8 - Abnormal levels of other serum enzymes, Z78.0 - Asymptomatic menopausal state Alanine Aminotransferase 08/02/24 E78.5 - Hyperlipidemia, unspecified, F32.A - Depression, unspecified, F41.9 - Anxiety disorder, unspecified, I10 - Essential (primary) hypertension, I25.10 - Atherosclerotic heart disease of [place] coronary artery without angina pectoris, M85.88 - Other specified disorders of bone density and structure, other site, R73.01 - Impaired fasting glucose, R74.8 - Abnormal levels of other serum enzymes, Z78.0 - Asymptomatic menopausal state Basic Metabolic Panel Fasting 08/02/24 E78.5 - Hyperlipidemia, unspecified, F32.A - Depression, unspecified, F41.9 - Anxiety disorder, unspecified, I10 - Essential (primary) hypertension, I25.10 - Atherosclerotic heart disease of [place] coronary artery without angina pectoris, M85.88 - Other specified disorders of bone density and structure, other site, R73.01 - Impaired fasting glucose, R74.8 - Abnormal levels of other serum enzymes, Z78.0 - Asymptomatic menopausal state Vitamin D 25-OH Total 08/02/24 E78.5 - Hyperlipidemia, unspecified, F32.A - Depression, unspecified, F41.9 - Anxiety disorder, unspecified, I10 - Essential (primary) hypertension, I25.10 - Atherosclerotic heart disease of [place] coronary artery without angina pectoris, M85.88 - Other specified disorders of bone density and structure, other site, R73.01 - Impaired fasting glucose, R74.8 - Abnormal levels of other serum enzymes, Z78.0 - Asymptomatic menopausal state Coding Level of Care Code Est Pt Level 4 (62846) Complex EM visit Add On G2211 Diagnoses Impaired fasting glucose R73.01 Dyslipidemia E78.5 Primary hypertension I10 Hypertension type: primary hypertension Anxiety and depression F41.9; F32.A Elevated CPK R74.8 Additional Codes EDDIE-7 Assessment Billing - EDDIE-7 Assessment Tool: EDDIE-7 Assessment 56274 ([id number])
[2024-02-24 10:39] VITALS: BP 122/80; PULSE 62; O2SAT 98; BMI 29.7
== END 2024-02-24 11:29 | disposition home or self-care (01) ==
PROVIDERS: PCP Internal Medicine; Visit Provider Internal Medicine
DX: R73.01 Impaired fasting glucose (principal); E78.5 Hyperlipidemia, unspecified; I10 Essential (primary) hypertension; F41.9 Anxiety disorder, unspecified; F32.A Depression, unspecified; R74.8 Abnormal levels of other serum enzymes
CPT/HCPCS: 96127; 99214; G2211

== ENCOUNTER 2024-02-29 07:53 | Outpatient (REF) | payer MEDICARE, SELFPAY ==
--- NOTE | ~2024-02-29 | FL_ITS ---
EXAMINATION: XR FLUOROSCOPY UPPER GI WITH AIR CLINICAL INFORMATION: Reflux COMPARISON: None TECHNIQUE: Fluoroscopic air contrast upper GI examination was performed utilizing standard techniques with thin and thick barium and effervescent granules. Numerous spot images were obtained. FINDINGS: Dual and single contrast images of the esophagus demonstrate normal caliber, contour, and mucosal pattern. No evidence of stricture, mass, or ulcerations identified. Esophageal peristalsis is mildly disorganized. No evidence of hiatus hernia identified. Significant gastroesophageal reflux up to the thoracic inlet. Dual contrast and single contrast images of the stomach demonstrated a normal contour. The gastric rugal folds are mildly thickened appearance. There are a few foci of contrast pooling in the fundus of the stomach that may represent small superficial aphthous ulcers. No masses are seen. Contrast freely passed into the gastric antrum and duodenal bulb without delay. Single and air-contrast images of the duodenal bulb demonstrate no abnormality. The duodenal sweep has a normal appearance, course, and mucosal fold appearance. A small diverticulum is noted in the second portion the duodenum. The imaged proximal jejunum has a normal fold pattern and caliber. FLUOROSCOPY TIME: 3 minutes 28 seconds Number of Spot Images: 8 Number of Cine: 14 DOSE AREA PRODUCT: 2005 uGy-m2 (microgray-meter squared) FL/FL upper GI series IMPRESSION: 1. Mildly disorganized esophageal peristalsis. 2. Significant gastroesophageal reflux. 3. Mildly thickened gastric rugal folds. In addition there are few foci of contrast pooling in the fundus of the stomach. These findings are suggestive of erosive gastritis. Recommend correlation with EGD. 4. Small diverticulum in the second portion of duodenum. This procedure was performed by Derek Byers PA-C, and supervised by Dr. Littlejohn
== END 2024-02-29 07:54 | disposition home or self-care (01) ==
LOC: HO.XRAY 07:53
PROVIDERS: PCP Internal Medicine; Visit Provider Internal Medicine
DX: R12 Heartburn (principal)
CPT/HCPCS: 74240

== ENCOUNTER → 2024-02-29 07:54 | Outpatient (BNV) | payer MEDICARE, SELFPAY | PROVIDERS: PCP Internal Medicine; Visit Provider Physician Assistant Surgical | DX: K21.9 Gastro-esophageal reflux disease without esophagitis (principal) | CPT/HCPCS: 74246 ==

== ENCOUNTER 2024-04-19 10:58 | Outpatient (AMB) | payer MEDICARE, SELFPAY ==
[2024-04-19 11:14] VITALS: BP 146/84; PULSE 64; O2SAT 98; BMI 27.6
--- NOTE | 2024-04-19 11:14 | A.OFFVIS_ITS ---
Vital Signs 04/19/24 11:14 Height 5 ft 3 in Weight 155 lb 10.342 oz BMI 27.6 BP 146/84 H Blood Pressure Location Rt brachial Position Sitting Pulse 64 Pulse Source Pulse Oximeter Pulse Oximetry (%) 98 Oxygen Delivery Method Room Air Intake Visit Reasons: Gastroesophageal reflux disease (GERD) Intake Note: Caitlin presents in office today for a scheduled initial assessment. CC; Reason for referral is GERD. Pt reports that they have had reflux for years, however; they noticed as of 09/2023 their sx have become much more severe. Pt reports that it seemed to start around the time that they were seen at the ED for moderate to severe HTN. Pt had their lisinopril increased. Pt has noticed since then that they are experiencing GERD related sx, nausea, and unintentional weight loss. Pt had Upper GI study as of 02/29/24. EGD recommended per radiologist. Scout Leaser Required: No Allergies No Known Allergies Allergy (Verified 04/19/24 11:15) HPI HPI Gastroesophageal reflux disease (GERD): Details: 69-year-old female with past medical history of hypercholesteremia, hypertension, osteopenia, insomnia, anxiety, depression, CAD is here today for initial consultation. Patient reports that back in September she started having palpitations and seen in the ER couple times for high blood pressure. Started on lisinopril, increase to 30 mg daily. Currently patient reports that since she started taking that dose she has been having epigastric pain and reflux. PCP send patient for upper GI series that showed severe reflux with disorganized esophageal motility, possible gastritis. Patient reports that she started taking omeprazole, however she continues to have reflux. Worse when she wakes up in the morning. Patient denies any abdominal pain or epigastric discomfort after eating. Occasional epigastric pain and bloating after lactose. Patient denies any nausea or vomiting. Admits to have bad breath. Admits to spitting up blood couple times. Patient had colonoscopy in 2019 and was recommended to r eat colonoscopy in 5 years, tubular adenoma without high-grade dysplasia or carcinoma seen. Patient reports that since she had dose symptoms in September she lost about 20 lb. Recently patient start to have better appetite and has gained 2 or 3 lb back. Patient denies any melena, hematochezia. Patient had colonoscopies done by Dr. Dupont, however patient would like to stay in this practice to be treated for her reflux and continue with colonoscopies with us. [facility] Medical History Hot flashes Chest pain Impaired fasting glucose History of adenomatous polyp of colon Osteopenia of lumbar spine Insomnia disorder, with non-sleep disorder mental comorbidity Dyslipidemia Anxiety and depression Postmenopause Positional lightheadedness HTN (hypertension) Myocardial infarct Surgical History Hx of colonoscopy H/O tubal ligation Hx of tonsillectomy Hx of cardiac cath Family History Father CVD (cardiovascular disease) Substance use disorder Mother CVD (cardiovascular disease) Brother Substance use disorder Mental health disorder Son Substance use disorder Social History Housing: House Alcohol intake: never Patient Tobacco Use Status: Former Tobacco user e-Cigarette/Vaping Use: Never Used service: No Current occupational status: employed and retired Cognitive needs: No Hearing needs: No Vision needs: Yes Review of Systems Const Denies weight gain and Denies weight loss ENT Reports no additional complaints, Denies dysphagia and Denies odynophagia Card Reports no additional complaints Resp Reports no additional complaints GI Reports abdominal pain (Epigastric), Denies belching, Denies melena, Denies bloating, Denies change in bowel habits, Denies dysphagia, Denies excessive flatus, Denies dyspepsia, Reports heartburn, Denies diarrhea, Denies loose stools, Denies nausea, Denies odynophagia and Denies vomiting Reports no additional complaints Musc Reports no additional complaints Neuro Reports no additional complaints Psych Reports no additional complaints Endo Reports no additional complaints Physical Exam Vital Signs: Last Vital Signs Pulse 64 04/19/24 11:14 BP 146/84 H 04/19/24 11:14 Pulse Ox 98 04/19/24 11:14 Oxygen Delivery Method Room Air 04/19/24 11:14 BMI result Body Mass Index 27.6 Const General: healthy appearing, no acute distress and well developed Nutritional Appearance: well nourished Orientation/consciousness: patient oriented x3 Resp Effort & Inspection: normal respiratory effort, able to speak in complete sentences, no tracheal deviation and symmetric chest movement Auscultation: clear to auscultation bilaterally Cardio Rate: regular rate GI Inspection: Yes normal to inspection and No distended Palpation (GI): Soft to palpation, not firm, nontender and No hepatosplenomegaly present Auscultation: normal bowel sounds General: Yes no CVA tenderness Back/Spine/Pelvis Back: no CVA tenderness Skin General skin exam: elasticity normal, turgor normal and dry skin Neuro General: patient oriented x3 Psych Appearance: grossly normal Mental Status: mental status grossly normal Results Reviewed Results Reviewed: UPPER GI SERIES FINDINGS: Dual and single contrast images of the esophagus demonstrate normal caliber, contour, and mucosal pattern. No evidence of stricture, mass, or ulcerations identified. Esophageal peristalsis is mildly disorganized. No evidence of hiatus hernia identified. Significant gastroesophageal reflux up to the thoracic inlet. Dual contrast and single contrast images of the stomach demonstrated a normal contour. The gastric rugal folds are mildly thickened appearance. There are a few foci of contrast pooling in the fundus of the stomach that may represent small superficial aphthous ulcers. No masses are seen. Contrast freely passed into the gastric antrum and duodenal bulb without delay. Single and air-contrast images of the duodenal bulb demonstrate no abnormality. The duodenal sweep has a normal appearance, course, and mucosal fold appearance. A small diverticulum is noted in the second portion the duodenum. The imaged proximal jejunum has a normal fold pattern and caliber. FLUOROSCOPY TIME: 3 minutes 28 seconds Number of Spot Images: 8 Number of Cine: 14 DOSE AREA PRODUCT: 2006 uGy-m2 (microgray-meter squared) FL/FL upper GI series IMPRESSION: 1. Mildly disorganized esophageal peristalsis. 2. Significant gastroesophageal reflux. 3. Mildly thickened gastric rugal folds. In addition there are few foci of contrast pooling in the fundus of the stomach. These findings are suggestive of erosive gastritis. Recommend correlation with EGD. 4. Small diverticulum in the second portion of duodenum. Assessment & Plan Assessment & Plan (1) GERD (gastroesophageal reflux disease): Code(s): K21.9 - Gastro-esophageal reflux disease without esophagitis Category: Medical Qualifiers: Esophagitis presence: esophagitis presence not specified Qualified Code(s): K21.9 - Gastro-esophageal reflux disease without esophagitis (2) Dysphagia: Code(s): R13.10 - Dysphagia, unspecified Qualifiers: Dysphagia type: pharyngoesophageal phase Qualified Code(s): R13.14 - Dysphagia, pharyngoesophageal phase (3) Dyspepsia: Code(s): R10.13 - Epigastric pain (4) Postprandial abdominal bloating: Code(s): R14.0 - Abdominal distension (gaseous) Plan Patient will be book for upper endoscopy. Upper GI results discussed with patient. Patient will need better management with different PPI. Will start her on Nexium. Patient will take famotidine at bedtime. Avoid dietary triggers and late night snacking. Staying upright for minimum 3 hours after meals discussed with patient. Follow-up in the office in 6 weeks, sooner on as needed basis. Patient is agreeable to this plan and verbalizes understanding of instructions. She was given the opportunity to ask questions and all questions answered. Thank you for allowing me to participate in her care Medications: New esomeprazole magnesium (Nexium) 40 mg PO DAILY 30 caps 5RF K21.9 - Gastro- esophageal reflux disease without esophagitis famotidine (Pepcid) 20 mg PO BEDTIME 30 tabs 3RF K21.9 - Gastro-esophageal reflux disease without esophagitis Discontinued omeprazole Discontinued Reason: Doctor's Order 40 mg PO DAILY 90 caps 0RF Coding Level of Care Code New Pt Level 4 (92408) Diagnoses Gastroesophageal reflux disease, unspecified whether esophagitis present K21.9 Esophagitis presence: esophagitis presence not specified Pharyngoesophageal dysphagia R13.14 Dysphagia type: pharyngoesophageal phase Dyspepsia R10.13 Postprandial abdominal bloating R14.0 Time Spent (min) 45 Comment 30 minutes spent with patient and additional 15 minutes spent reviewing her records
== END 2024-04-19 11:45 | disposition home or self-care (01) ==
PROVIDERS: PCP Internal Medicine; Visit Provider Nurse Practitioner Family
DX: K21.9 Gastro-esophageal reflux disease without esophagitis (principal); R13.14 Dysphagia, pharyngoesophageal phase; R10.13 Epigastric pain; R14.0 Abdominal distension (gaseous)
CPT/HCPCS: 99204

== ENCOUNTER → 2024-04-19 10:58 | Outpatient (BNVA) | payer MEDICARE, SELFPAY | PROVIDERS: PCP Internal Medicine; Visit Provider Nurse Practitioner Family | DX: K21.9 Gastro-esophageal reflux disease without esophagitis (principal); R13.14 Dysphagia, pharyngoesophageal phase; R10.13 Epigastric pain; R14.0 Abdominal distension (gaseous) | CPT/HCPCS: 99202 ==

== ENCOUNTER 2024-06-02 12:04 | Outpatient (AMB) | payer MEDICARE, SELFPAY ==
[2024-06-02 12:19] VITALS: BP 136/66; PULSE 66; O2SAT 96; BMI 27.2
--- NOTE | 2024-06-02 12:19 | A.OFFVIS_ITS ---
Vital Signs 06/02/24 12:19 Height 5 ft 3 in Weight 153 lb 7.068 oz BMI 27.2 BP 136/66 Blood Pressure Location Rt brachial Position Sitting Pulse 66 Pulse Source Pulse Oximeter Pulse Oximetry (%) 96 Oxygen Delivery Method Room Air Intake Visit Reasons: 6 week follow up Intake Note: PRESCRIPTIONS LAST GENERATED famotidine 20 mg tablet?(Pepcid)?20 mg PO BEDTIME 30 tabs 3RF Sergey,Kathrin D 04/19/24 11:37 (Transmitted) esomeprazole magnesium 40 mg capsule,delayed release?(Nexium)?40 mg PO DAILY 30 caps 5RF Sergey,Kathrin D 04/19/24 11:38 (Transmitted) Relevant Flags or Indicators ? Requires Inbound Sales Consultant? Lauren Caitlin presents in office today for a scheduled ~2 mos FUV. CC; No recent labs, diagnostics. Relevant GI Sx as reported per pt? Nausea ? Reflux * Pt reports that their appetite has been increased lately. ? Hx of any recent surgeries? None Inbound Sales Consultant Required: No Allergies No Known Allergies Allergy (Verified 06/13/24 12:50) HPI HPI 6 week follow up: Details: LAST VISIT: GERD (gastroesophageal reflux disease) Dysphagia Dyspepsia Postprandial abdominal bloating Plan Patient will be book for upper endoscopy. Upper GI results discussed with patient. Patient will need better management with different PPI. Will start her on Nexium. Patient will take famotidine at bedtime. Avoid dietary triggers and late night snacking. Staying upright for minimum 3 hours after meals discussed with patient. Follow-up in the office in 6 weeks, sooner on as needed basis. Patient is agreeable to this plan and verbalizes understanding of instructions. She was given the opportunity to ask questions and all questions answered. ? Thank you for allowing me to participate in her care Medications New esomeprazole magnesium (Nexium) 40 mg PO DAILY 30 caps 5RF K21.9 famotidine (Pepcid) 20 mg PO BEDTIME 30 tabs 3RF K21.9 Discontinued omeprazole Discontinued Reason: Doctor's Order 40 mg PO DAILY 90 caps 0RF TODAY'S VISIT Patient is here today for follow-up. Patient reports that since last time I have seen her she has been feeling better. Patient states that her acid reflux is under control for the most part. Taking Nexium in the morning and famotidine at bedtime. Patient still will have occasional nausea and increased production of phlegm, however she is no longer experiencing epigastric pain and dyspepsia. Last colonoscopy in [address] Dupont. Patient was found to have tubular adenoma without high-grade dysplasia or carcinoma. Patient had at the same time upper endoscopy, H pylori found. Patient denies any issues with anesthesia in the past. No history of sleep apnea. On low-dose aspirin. Denies any cardiac or respiratory symptoms. [facility] Medical History Hot flashes Chest pain Impaired fasting glucose History of adenomatous polyp of colon Osteopenia of lumbar spine Insomnia disorder, with non-sleep disorder mental comorbidity Dyslipidemia Anxiety and depression Postmenopause Positional lightheadedness HTN (hypertension) Myocardial infarct Surgical History Hx of colonoscopy H/O tubal ligation Hx of tonsillectomy Hx of cardiac cath Family History Father CVD (cardiovascular disease) Substance use disorder Mother CVD (cardiovascular disease) Brother Substance use disorder Mental health disorder Son Substance use disorder Social History Housing: House Alcohol intake: never Patient Tobacco Use Status: Former Tobacco user e-Cigarette/Vaping Use: Never Used service: No Current occupational status: employed and retired Cognitive needs: No Hearing needs: No Vision needs: Yes Review of Systems Const Denies weight gain and Denies weight loss ENT Reports no additional complaints, Denies dysphagia and Denies odynophagia Card Reports no additional complaints Resp Reports no additional complaints GI Reports abdominal pain (Epigastric), Denies belching, Denies melena, Reports bloating, Denies change in bowel habits, Denies dysphagia, Denies excessive flatus, Denies dyspepsia, Reports heartburn, Denies diarrhea, Denies loose stools, Reports nausea, Denies odynophagia and Denies vomiting Reports no additional complaints Musc Reports no additional complaints Neuro Reports no additional complaints Psych Reports no additional complaints Endo Reports no additional complaints Physical Exam Vital Signs: Last Vital Signs Pulse 66 06/02/24 12:19 BP 136/66 06/02/24 12:19 Pulse Ox 96 06/02/24 12:19 Oxygen Delivery Method Room Air 06/02/24 12:19 BMI result Body Mass Index 27.2 Const General: healthy appearing, no acute distress and well developed Nutritional Appearance: well nourished Orientation/consciousness: patient oriented x3 Resp Effort & Inspection: normal respiratory effort, able to speak in complete sentences, no tracheal deviation and symmetric chest movement Auscultation: clear to auscultation bilaterally Cardio Rate: regular rate GI Inspection: Yes normal to inspection and No distended Palpation (GI): Soft to palpation, not firm, nontender and No hepatosplenomegaly present Auscultation: normal bowel sounds General: Yes no CVA tenderness Back/Spine/Pelvis Back: no CVA tenderness Skin General skin exam: elasticity normal, turgor normal and dry skin Neuro General: patient oriented x3 Psych Appearance: grossly normal Mental Status: mental status grossly normal Assessment & Plan Assessment & Plan (1) GERD (gastroesophageal reflux disease): Code(s): K21.9 - Gastro-esophageal reflux disease without esophagitis Category: Medical Qualifiers: Esophagitis presence: esophagitis presence not specified Qualified Code(s): K21.9 - Gastro-esophageal reflux disease without esophagitis (2) Dysphagia: Code(s): R13.10 - Dysphagia, unspecified Qualifiers: Dysphagia type: pharyngoesophageal phase Qualified Code(s): R13.14 - Dysphagia, pharyngoesophageal phase (3) Dyspepsia: Code(s): R10.13 - Epigastric pain (4) Postprandial abdominal bloating: Code(s): R14.0 - Abdominal distension (gaseous) (5) Screen for colon cancer: Code(s): Z12.11 - Encounter for screening for malignant neoplasm of colon Plan Continue PPI and H2 jerry. Avoid dietary triggers and late night snacking. Staying upright for minimum 3 hours after meals discussed with patient. What to expect before during and after procedure discussed with patient. Stressed the importance of good bowel prep and clear liquid diet day before procedure. I will see patient after the procedure, sooner on as needed basis. Patient is agreeable to plan of care and verbalizes understanding of instructions. She was given the opportunity to ask questions and all questions answered. Thank you for allowing me to participate in her care Coding Level of Care Code Est Pt Level 3 (18738) Diagnoses Gastroesophageal reflux disease, unspecified whether esophagitis present K21.9 Esophagitis presence: esophagitis presence not specified Pharyngoesophageal dysphagia R13.14 Dysphagia type: pharyngoesophageal phase Dyspepsia R10.13 Postprandial abdominal bloating R14.0 Screen for colon cancer Z12.11 Time Spent (min) 30 Comment 20 minutes spent with patient and additional 10 minutes spent reviewing her records
== END 2024-06-02 13:09 | disposition home or self-care (01) ==
LOC: HO.HGI 12:04
PROVIDERS: PCP Internal Medicine; Visit Provider Nurse Practitioner Family
DX: K21.9 Gastro-esophageal reflux disease without esophagitis (principal); R13.14 Dysphagia, pharyngoesophageal phase; R10.13 Epigastric pain; R14.0 Abdominal distension (gaseous); Z12.11 Encounter for screening for malignant neoplasm of colon
CPT/HCPCS: 99213

== ENCOUNTER → 2024-06-02 12:04 | Outpatient (BNVA) | payer MEDICARE, SELFPAY | PROVIDERS: PCP Internal Medicine; Visit Provider Nurse Practitioner Family | DX: K21.9 Gastro-esophageal reflux disease without esophagitis (principal); R14.0 Abdominal distension (gaseous); R13.14 Dysphagia, pharyngoesophageal phase; R10.13 Epigastric pain; Z12.11 Encounter for screening for malignant neoplasm of colon | CPT/HCPCS: 99212 ==

== ENCOUNTER 2024-06-13 11:14 | Outpatient (AMB) | payer MEDICARE, SELFPAY ==
[2024-06-13 12:50] VITALS: BP 130/84; PULSE 56; O2SAT 99
--- NOTE | 2024-06-13 12:50 | MHC.OFFWIV ---
Intake Vital Signs 06/13/24 12:50 Weight 155 lb BP 130/84 Blood Pressure Location Lt brachial Position Sitting Pulse 56 Pulse Source Pulse Oximeter Pulse Oximetry (%) 99 Oxygen Delivery Method Room Air Intake Visit Reasons: EP bruised/injured ribs-rt side. Intake Note: Patient here for injured right rib that started this past weekend. Patient Tobacco Use Status: Former Tobacco user Allergies No Known Allergies Allergy (Verified 06/13/24 12:50) Do you need a note to return to daycare/school/sports/work: No HPI HPI Comments History of Present Illness Details Patient is a 69-year-old female who states that 5 days ago, she was reaching into the recycling bin when she fell and a little too far and injured her right side near her ribs. She states that it did not hurt right away and it just started hurting 2 days ago. She has been using Biofreeze gel on it as well as heat. She has not tried taking any Advil or a leave or Tylenol. She denies any pain with deep inspiration. She tells me it is tender to touch and is worse when she makes certain twisting movements with her core. [facility] Medical History Hot flashes Chest pain Impaired fasting glucose History of adenomatous polyp of colon Osteopenia of lumbar spine Insomnia disorder, with non-sleep disorder mental comorbidity Dyslipidemia Anxiety and depression Postmenopause Positional lightheadedness HTN (hypertension) Myocardial infarct Surgical History Hx of colonoscopy H/O tubal ligation Hx of tonsillectomy Hx of cardiac cath Family History Father CVD (cardiovascular disease) Substance use disorder Mother CVD (cardiovascular disease) Brother Substance use disorder Mental health disorder Son Substance use disorder Social History Housing: House Alcohol intake: never Patient Tobacco Use Status: Former Tobacco user e-Cigarette/Vaping Use: Never Used service: No Current occupational status: employed and retired Cognitive needs: No Hearing needs: No Vision needs: Yes Review of Systems Const All systems reviewed & are unremarkable except as noted in HPI and below Physical Exam Vital Signs: Last Vital Signs Pulse 56 06/13/24 12:50 BP 130/84 06/13/24 12:50 Pulse Ox 99 06/13/24 12:50 Oxygen Delivery Method Room Air 06/13/24 12:50 Const General: cooperative, healthy appearing and comfortable Orientation/consciousness: patient oriented x3 HEENT Head: Yes normal to inspection and Yes normocephalic General nose exam: Normal external nose present Face and sinus: Yes normal facial exam Eyes General: appearance normal, both eyes and all related structures Chest Chest palpation & inspection: localized rib tenderness with anteroposterior compression (right side 7th-8th ribs midaxillary line) Resp Effort & Inspection: normal respiratory effort and able to speak in complete sentences General: Yes no CVA tenderness Back/Spine/Pelvis Back: no CVA tenderness Cervical Spine: cervical ROM normal Thoracic/Lumbar Spine: thoracic and lumbar spine normal to inspection Neuro General: patient oriented x3 Assessment & Plan Assessment & Plan (1) Rib pain on right side: Code(s): R07.81 - Pleurodynia Plan: Very unlikely she fractured a rib with the mechanism of injury. Likely musculoskeletal, sent meloxicam to pharmacy and recommended she use heat or ice, whichever feels better. Follow up with PCP if no improvement in symptoms Plan See above Medications: New meloxicam 15 mg PO DAILY 10 tabs 0RF Coding Level of Care Code Est Pt Level 3 (81110) Diagnoses Rib pain on right side R07.81
== END 2024-06-13 14:17 | disposition home or self-care (01) ==
PROVIDERS: PCP Internal Medicine; Visit Provider Physician Assistant
DX: R07.81 Pleurodynia (principal)

== ENCOUNTER → 2024-06-13 11:14 | Outpatient (BNVA) | payer MEDICARE, SELFPAY | PROVIDERS: PCP Internal Medicine; Visit Provider Physician Assistant | DX: R07.81 Pleurodynia (principal) | CPT/HCPCS: 99212 ==

== ENCOUNTER 2024-08-19 07:44 | Outpatient (REF) | payer MEDICARE, SELFPAY ==
[2024-08-19 10:17] LABS: Estimated Average Glucose 103 mg/dL; Hemoglobin A1C 116.3668 umol/L; Hemoglobin A1c % 5.2 % (<6.0); Total Hemoglobin (HGBA1C) 3498.3869 umol/L
[2024-08-19 10:38] LABS: Alanine Aminotransferase 23 U/L (0-31); Anion Gap 10 (12-20); Aspartate Amino Transferase 26 U/L (5-31); Blood Urea Nitrogen 12 mg/dL (9-16); Calcium 8.8 mg/dL (8.4-10.2); Carbon Dioxide 27 mmol/L (22-29); Chloride 109 mmol/L (96-108); Cholesterol 176 mg/dL (<200); Estimated Glomerular Filt Rate > 60; Glucose Fasting 103 mg/dL (60-99); HDL Cholesterol 62 mg/dL (>40); LDL Cholesterol Calculated 95 mg/dL (<100); Potassium 4.6 mmol/L (3.3-5.1); Sodium 141 mmol/L (135-145); Triglycerides 97 mg/dL (<150)
[2024-08-19 10:54] LABS: Vitamin D 25-OH Total 55.9 ng/mL (>30)
== END 2024-08-19 07:45 | disposition home or self-care (01) ==
LOC: HO.LAB 07:44
PROVIDERS: PCP Internal Medicine; Visit Provider Internal Medicine
DX: R74.8 Abnormal levels of other serum enzymes (principal); R73.01 Impaired fasting glucose; M85.88 Other specified disorders of bone density and structure, other site; F41.9 Anxiety disorder, unspecified; F32.A Depression, unspecified; E78.5 Hyperlipidemia, unspecified; Z78.0 Asymptomatic menopausal state; I10 Essential (primary) hypertension; I25.10 Atherosclerotic heart disease of native coronary artery without angina pectoris
CPT/HCPCS: 36415; 80048; 80061; 82306; 82550; 83036; 84450; 84460

== ENCOUNTER 2024-08-22 10:43 | Outpatient (AMB) | payer MEDICARE, SELFPAY ==
[2024-08-22 11:01] VITALS: BP 130/80; PULSE 62; O2SAT 98; BMI 28.5
--- NOTE | 2024-08-22 11:01 | MHC.PC.OV ---
Vital Signs 08/22/24 11:01 Height 5 ft 3 in Weight 161 lb BMI 28.5 BP 130/80 Blood Pressure Location Lt brachial Position Sitting Pulse 62 Pulse Source Pulse Oximeter Pulse Oximetry (%) 98 Oxygen Delivery Method Room Air Intake Visit Reasons: 6m f/u Intake Note: Pt is here today for her 6mo. f/u Allergies No Known Allergies Allergy (Verified 08/22/24 11:35) Medication List - Last Reconciled 08/22/24 by Tonie Cheema MD atorvastatin 40 mg PO 3XW buspirone 5 mg PO TID cholecalciferol (vitamin D3) 25 mcg PO DAILY esomeprazole magnesium (Nexium) 40 mg PO DAILY famotidine (Pepcid) 20 mg PO BEDTIME latanoprost 0.005% drps ophthalmic (eye) lisinopril 30 mg PO DAILY magnesium 250 mg PO DAILY metoprolol succinate ER 100 mg PO DAILY Tobacco use date assessed: 08/22/24 Fall risk assessment: No Falls in past year Last assessed Fall Risk: 08/22/24 Dental Screening Dental Screen Date: 08/22/24 Did you have a dental visit in the last 12 months?: Yes Did you have a dental problem in the last 6 months where you did not have access to dental care?: No Was dental information given to patient?: Patient has dentist HPI 6m f/u HPI Details 69-year-old lady with history of hyperlipidemia, hypertension and anxiety depression, here today for follow-up. Has been compliant with taking medications. Blood pressure stable controlled on current treatment with lisinopril 30 mg daily. Mood and anxiety symptoms are controlled with taking buspirone 5 mg 1 tablet 3 times a day and takes trazodone as needed for insomnia. She reports however increased sleepiness, foggy feeling when she wakes up in the morning after taking trazodone 50 mg at bedtime denied before. Her fasting lipids noted on recent labs done are within normal limits, currently on atorvastatin 40 mg taken 1 tablet 3 times a week. [facility] Medical History (Updated 08/27/24 @ 23:56 by Tonie Cheema MD) Impaired fasting glucose History of adenomatous polyp of colon Osteopenia of lumbar spine Insomnia disorder, with non-sleep disorder mental comorbidity Dyslipidemia Anxiety and depression Postmenopause Positional lightheadedness HTN (hypertension) Myocardial infarct Surgical History Hx of colonoscopy H/O tubal ligation Hx of tonsillectomy Hx of cardiac cath Family History Father CVD (cardiovascular disease) Substance use disorder Mother CVD (cardiovascular disease) Brother Substance use disorder Mental health disorder Son Substance use disorder Social History Housing: House Alcohol intake: never Patient Tobacco Use Status: Former Tobacco user e-Cigarette/Vaping Use: Never Used service: No Current occupational status: employed and retired Cognitive needs: No Hearing needs: No Vision needs: Yes Questionnaire PHQ-9 Over the last 2 weeks, how often have you been bothered by any of the following problems? 1. Little interest or pleasure in doing things: not at all 2. Feeling down, depressed, or hopeless: not at all 3. Trouble falling or staying asleep, or sleeping too much: nearly every day 4. Feeling tired or having little energy: not at all 5. Poor appetite or overeating: not at all 6. Feeling bad about yourself - or that you are a failure or have let yourself or your family down: not at all 7. Trouble concentrating on things, such as reading the newspaper or watching television: not at all 8. Moving or speaking so slowly that other people could have noticed. Or the opposite - being so fidgety or restless that you have been moving around a lot more than usual: not at all 9. Thoughts that you would be better off or of hurting yourself in some way: not at all Total score: 3 Depression Screening Interpretation: Negative Depression Screening Done: Yes 90148 - PHQ-9 Billing: Yes Source: Developed by Drs. Fahad Torres, Ellie Unger, Van Peterson and colleagues, with an educational donavan from [employer]. Thrive Questionnaire Date Thrive assessed: 02/21/24 I am a: Patient What is your living situation today?: I have a steady place to live Within the past 12 months, did the food you bought not last and you didn't have the money to get more?: Never true Within the past 12 months, did you worry whether your food would run out before you got money to buy more?: Never true Do you have trouble paying for medicines?: No Do you have trouble getting transportation to medical appointments?: No Do you have trouble paying your heating and electricity bill?: No Do you have trouble taking care of your child, family member or friend?: No Do you have trouble with day-to-day activities such as bathing, preparing meals, shopping, managing finances, etc.?: No Are you currently unemployed and looking for a job?: No Are you interested in more education?: No Please select the resources that you would like help with: None Currently or been in a relationship where the following occur: No concerns reported THRIVE Score: 0 AUDIT C Alcohol Use Questionnaire (AUDIT-C) 1. How often do you have a drink containing alcohol?: 2-4 times a month 2. How many drinks containing alcohol do you have on a typical day when you are drinking?: 1 or 2 3. How often do you have six or more drinks on one occasion?: Never Total Score: 2 EDDIE-7 AMB Questionnaire EDDIE-7 Date EDDIE - 7 assessed: 02/24/24 Feeling nervous, anxious, or on edge: 0 = Not at all Not being able to stop or control worryin = Not at all Worrying too much about different things: 0 = Not at all Trouble relaxin = Not at all Being so restless that it is hard to sit still: 0 = Not at all Becoming easily annoyed or irritable: 0 = Not at all Feeling afraid as if something awful might happen: 0 = Not at all Total EDDIE-7 score (0-4 normal; 5-9 mild; 10-14 moderate; 15-21 severe): 0 Source: Developed by Drs. Fahad Torres, Ellie Unger, Van Peterson and colleagues, with an educational donavan from [employer]. EDDIE-7 Assessment Billing EDDIE-7 Assessment Tool: EDDIE-7 Assessment 73682 Review of Systems Const All systems reviewed & are unremarkable except as noted in HPI and below Physical exam (Primary Care) Vital Signs: Last Vital Signs Pulse 62 08/22/24 11:01 BP 130/80 08/22/24 11:01 Pulse Ox 98 08/22/24 11:01 Oxygen Delivery Method Room Air 08/22/24 11:01 BMI result Body Mass Index 28.5 Tobacco/Smoking Status: Tobacco use Status Tobacco use date assessed 08/22/24 08/22/24 11:20 Patient Tobacco Use Status Former Tobacco user 08/22/24 11:02 e-Cigarette/Vaping Use Never Used 08/22/24 11:02 PHQ-9: PHQ-9 Score PHQ-9: Total score 3 08/22/24 11:38 Depression Screening Interpretation: Negative Thrive Assessment: Date of Thrive Assessment Date Thrive assessed 02/21/24 08/22/24 11:02 Currently or been in a relationship where the following occur: No concerns reported Const Other: Alert oriented x3, no acute cardiorespiratory distress noted ambulatory with normal gait Orientation/consciousness: patient oriented x3 HENMT Head: Yes normocephalic Ears: external ears normal Face and sinus: Yes face symmetric Mouth: Normal oral and palatal mucosa present, oropharynx normal and moist mucous membranes Eyes General: appearance normal, both eyes and all related structures Neck Neck: Yes full ROM, Yes no lymphadenopathy and Yes supple Resp Auscultation: clear to auscultation bilaterally Cardio Other: S1-S2 present regular rate and rhythm GI Inspection: Yes normal to inspection Palpation (GI): Soft to palpation, nontender, no guarding and no masses Auscultation: normal bowel sounds General: Yes no CVA tenderness Back/Spine/Pelvis Back: no CVA tenderness and No back tenderness Skin General skin exam: no rashes or lesions noted Neuro General: patient oriented x3, gait normal, moves all extremities, Normal light touch and pain sensation, no focal motor deficits and CN's II-XI intact bilaterally Extrem General: Yes full ROM, Yes no joint enlargement, Yes no clubbing, cyanosis or edema and Yes normal gait Psych Appearance: grossly normal and well kempt Mental Status: mental status grossly normal Speech and movement: Normal speech and movement present Affect: normal affect Thought process: Normal thought process present Results Reviewed Results Reviewed: Name: Caitlin Carlos Age/Sex: 69/F : 1955 Unit#: [id number] Attend Dr: Tonie Cheema MD Re08/19/24 Status: DEP [facility]F [facility] Disch: SPEC : [id number] LUKE: 08/19/24 STATUS: COMP REQ : [id number] RECD: 08/19/[address]: Tonie Cheema MD COMP: 08/19/24 ENTERED: 08/19/[address] [facility] [address]: ORDERED: Met Prof Fast, AST, ALT, CK Total, Lipid Panel, Vitamin D 25-OH Test Result Flag Reference Sodium 141 135-145 mmol/L Potassium 4.6 3.3-5.1 mmol/L CL 109 H 96-108 mmol/L CO2 27 22-29 mmol/L Gap 10 L 12-20 BUN 12 9-16 mg/dL Creat 0.70 0.5-1.4 mg/dL eGFR > 60 Chronic Kidney Disease: Estimated GFR < 60 mL/min/1.73m2 Severe Kidney Disease: Estimated GFR < 15 mL/min/1.73m2 FBS 103 H 60-99 mg/dL A fasting glucose from 100-125 mg/dl is considered impaired (pre-diabetes). CA 8.8 # 8.4-10.2 mg/dL AST (GOT) 26 5-31 U/L ALT (GPT) 23 0-31 U/L CK Total 146 H 26-140 U/L Triglyceride 97 <150 mg/dL Desirable Triglyceride: less than 150 mg/dL Borderline High Triglyceride 150-199 mg/dL High Triglyceride: 200-499 mg/dL Very High Triglyceride: greater than or equal to 5OO mg/dL Cholesterol 176 <200 mg/dL Desirable Cholesterol: less than 200 mg/dL Borderline High Cholesterol: 200-239 mg/dL High Cholesterol: greater than 239 mg/dL LDL Calculated 95 <100 mg/dL Desirable LDL: less than 100 mg/dL Near Optimal/Above Optimal LDL: 110-129 mg/dL Borderline High LDL: 130-159 mg/dL High LDL: 160-189 mg/dL Very High LDL: greater than or equal to 190 mg/dL HDL 62 >40 mg/dL Desirable HDL: greater than 40 mg/dL Note: This HDL assay may give artificially low results in patients with liver disease. Vit D 25-OH Tot 55.9 >30 ng/mL Health Based Reference Values* < 20 ng/mL Deficient 20-30 ng/mL Insufficient > 30 ng/mL Sufficient Coding Level of Care Code Est Pt Level 4 (61406) Complex EM visit Add On G2211 Diagnoses Primary hypertension I10 Hypertension type: primary hypertension Dyslipidemia E78.5 Anxiety and depression F41.9; F32.A Additional Codes PHQ-9 - 41226 - PHQ-9 Billing: Yes ([id number]) EDDIE-7 Assessment Billing - EDDIE-7 Assessment Tool: EDDIE-7 Assessment [id number] ([id number]) Assessment & Plan Assessment & Plan (1) Hypertension: Code(s): I10 - Essential (primary) hypertension Category: Medical Qualifiers: Hypertension type: primary hypertension Qualified Code(s): I10 - Essential (primary) hypertension Plan: Continued on lisinopril 30 mg daily (2) Dyslipidemia: Code(s): E78.5 - Hyperlipidemia, unspecified Category: Medical Plan: Latest labs are within normal limits, continue atorvastatin 40 mg taken 3 times a week (3) Anxiety and depression: Code(s): F41.9 - Anxiety disorder, unspecified; F32.A - Depression, unspecified Category: Medical Plan: Controlled on buspirone 5 mg 1 tablet 3 times a day will continue, continue trazodone as needed for insomnia but decrease to just half a tablet or 25 mg at bedtime Medications: New trazodone try taking half a tablet or 25 mg at bedtime initially 50 mg PO BEDTIME PRN 30 tabs 0RF sleep
--- OUTSIDE RECORDS SUMMARY | 2024-08-22 12:11 | XMS_ITS | Clinical Summary ---
Author Organization [facility] Address [address] [facility] 7 [place] [address] Care Team Providers Care Trade Union Official Name Role Phone Unavailable Primary Care Provider Unavailabl e Immunizations Name Administration Dates Next Due Influenza High-dose Quadriva lent Preservative Free 06/02/2021 Influenza Quadrivalent Adjuvanted 06/20/2022 Influenza injectable quadriv alent preservative free 04/30/2020,05/30/2019,05/20/2018 Influenza, IIV3, injectable 05/29/2016 Pfizer Covid-19 Vaccine 12+ 12/15/2021 Pfizer Covid-19 Vaccine 12+ Bivalent 09/30/2022 Pneumococcal Conjugate PCV 13 07/10/2020 Tdap 01/18/2015 Zoster, Recombinant 06/20/2022 Social History Tobacco Use Types Packs/Day Years Used Date Smoking Tobacco: Never Assessed Comments Unknown Sex and Gender Information Value Date Recorded Sex Assigned at Female 06/01/2022 10:39 AM EDT Legal Sex Female 10:39 AM EDT Gender Identity Female 06/01/2022 10:39 AM EDT Sexual Orientation Straight 06/01/2022 10 :39 AM EDT Plan of Treatment Health Maintenance Due Date Last Done Comments CT Colonography 1955 Colonoscopy 1955 Colorectal Cancer Screening 1955 Depression Screening 1955 FIT DNA/Cologuard 1955 FIT 1955 FOBT 1955 SDOH Screening 1955 Sigmoidoscopy 1955 Alcohol/Substance Use Screening 1967 Tobacco Screening 1967 Hepatitis C Screening 1973 Mammogram 1995 Pneumococcal Vaccine: 65+ Years (2 of 2 - PPSV23 or PCV20) 07/10/2021 07/10/2020 Zoster Vaccines (2 of 2) 08/15/2022 06/20/2022 COVID-19 Vaccine ( season) 2024 09/30/2022, 12/15/2021, 05/15/2021, Additional history exists Influenza Vaccine (#1) 2024 2, 06/02/2021, 04/30/2020, Additional history exists DTaP/Tdap/Td Vaccines (2 - Td or Tdap) 01/18/2025 01/18/2015 RSV Patients and Patients Aged 60 years or older (1 - 1-dose 75+ series) 2030 HIB Vaccines Aged Out No longer eligi ble based on patient's age to complete this topic HPV Vaccines Aged Out No longer eligi ble based on patient's age to complete this topic Hepatitis A Vaccines Aged Out No long er eligible based on patient's age to complete this topic Hepatitis B Vaccines Aged Out No long er eligible based on patient's age to complete this topic IPV Vaccines Aged Out No longer eligi ble based on patient's age to complete this topic Meningococcal Vaccine Aged Out No josafat lolis eligible based on patient's age to complete this topic RSV under 20 months Aged Out No longe r eligible based on patient's age to complete this topic Rotavirus Vaccines Aged Out No longer eligible based on patient's age to complete this topic Insurance [facility] [place]
== END 2024-08-22 14:00 | disposition home or self-care (01) ==
PROVIDERS: PCP Internal Medicine; Visit Provider Internal Medicine
DX: I10 Essential (primary) hypertension (principal); E78.5 Hyperlipidemia, unspecified; F41.9 Anxiety disorder, unspecified; F32.A Depression, unspecified

== ENCOUNTER → 2024-08-22 10:43 | Outpatient (BNVA) | payer MEDICARE, SELFPAY | PROVIDERS: PCP Internal Medicine; Visit Provider Internal Medicine | DX: I10 Essential (primary) hypertension (principal); E78.5 Hyperlipidemia, unspecified; F41.9 Anxiety disorder, unspecified; F32.A Depression, unspecified | CPT/HCPCS: 96127; 99212 ==

== ENCOUNTER 2024-08-28 12:45 | Outpatient (AMB) | payer OTHER, SELFPAY ==
--- NOTE | 2024-08-28 13:25 | A.OFFVIS_ITS ---
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 She has history of coronary artery disease and was seeing Dr. aFir in the past. In 2014 she had atypical chest pain and dyspnea and underwent exercise stress test. She was able to exercise for 10.1 Mets and developed some inferolateral ST changes with dyspnea. This led to cardiac catheterization which was done by Dr. Ware. Cath showed mild to moderate proximal left circumflex artery lesion. FFR across the left circumflex artery was normal. Since then she has been on medications and has been doing well. She said she had arm discomfort before cardiac catheterization and has not had any further pain. It appears she was under stress at that time because her from esophageal cancer before those events. Cardiac catheterization reviewed at [facility]. Today she returns for follow-up. She has been doing well. No chest pain or shortness of breath. Reviewed her fasting lipid panel an LDL levels are elevated we discussed about changing to atorvastatin 40 mg. 02/27/2023: She returns for follow-up. She has been doing well. No chest discomfort shortness of breath. Blood pressure control is good. Her main complaint lower back pain. She said she was at her daughter's home where she was going up and down stairs which she started noticing some low back pain. She is asking whether this is related to statins. She has been using aspirin off and on and we discussed about regular use of aspirin given her known history of coronary disease. 08/28/2024: She is here for follow-up. She was followed by nurse practitioner Koki since 2022. She is undergoing EGD and colonoscopy. No exertional symptoms particularly no chest discomfort shortness of breath. Taking medicati ons regularly otherwise. Blood pressure is well controlled. [facility] Medical History (Updated 08/28/24 @ 15:44 by Yobany Salcido MD) Impaired fasting glucose History of adenomatous polyp of colon Osteopenia of lumbar spine Insomnia disorder, with non-sleep disorder mental comorbidity Dyslipidemia Anxiety and depression Postmenopause Positional lightheadedness HTN (hypertension) Myocardial infarct Surgical History Hx of colonoscopy H/O tubal ligation Hx of tonsillectomy Hx of cardiac cath Family History Father CVD (cardiovascular disease) Substance use disorder Mother CVD (cardiovascular disease) Brother Substance use disorder Mental health disorder Son Substance use disorder Social History Housing: House Alcohol intake: never Patient Tobacco Use Status: Former Tobacco user e-Cigarette/Vaping Use: Never Used service: No Current occupational status: employed and retired Cognitive needs: No Hearing needs: No Vision needs: Yes Review of Systems Const Denies chills, Denies fatigue, Denies fever(s), Denies frequent falls, Denies weakness, Denies weight gain and Denies weight loss ENT Denies dizziness Card Denies chest pain, Denies leg edema, Denies lightheadedness, Denies palpitations, Denies dyspnea and Denies dyspnea on exertion Resp Denies cough, Denies dyspnea and Denies dyspnea on exertion GI Denies hematochezia Musc Denies abnormal gait, Denies muscle weakness, Denies numbness, Denies radiating pain into limb and Denies tingling Neuro Denies abnormal gait, Denies dizziness, Denies frequent falls, Denies numbness, Denies tingling and Denies weakness Endo Denies fatigue and Denies palpitations Physical Exam Vital Signs: Last Vital Signs Pulse 58 08/28/24 13:26 BP 130/74 08/28/24 13:26 BMI result Body Mass Index 28.7 GENERAL APPEARANCE: in no acute distress, pleasant. NECK: no carotid bruit, no jugular venous distention. SKIN: no suspicious lesions, warm and dry. HEART: no murmurs, regular rate and rhythm. LUNGS: clear to auscultation bilaterally. ABDOMEN: soft, nontender. EXTREMITIES: no edema. PERIPHERAL PULSES: equal. NEUROLOGIC: No gross deficits, AAO X 3 Office Procedures EKG Details: Sinus bradycardia 58 beats per minute, normal axis, septal infarct, left ventricular hypertrophy, QTC 420 milliseconds. [id number], Complete Assessment & Plan Assessment & Plan (1) Hypertension: Code(s): I10 - Essential (primary) hypertension Category: Medical Qualifiers: Hypertension type: primary hypertension Qualified Code(s): I10 - Essential (primary) hypertension (2) CAD (coronary artery disease): Code(s): I25.10 - Atherosclerotic heart disease of [place] coronary artery without angina pectoris Category: Medical (3) Preop cardiovascular exam: Code(s): Z01.810 - Encounter for preprocedural cardiovascular examination Category: Medical Plan [age] year female who is here for follow-up. She has known history of coronary artery disease with circumflex stenosis which was negative on physiologic assessment in the manager lab. She does not have any anginal symptoms. Blood pressure is well controlled. She can proceed with endoscopy with intermediate risk for perioperative cardiovascular complications. Currently off aspirin due to GI issues. As she gets further testing and stabilizes we should rediscuss aspirin use in her. Thank you for allowing me to participate in the care of your patient. Please feel free to contact me if you have any questions. Coding Level of Care Code Est Pt Level 4 (62990) Diagnoses Primary hypertension I10 Hypertension type: primary hypertension CAD (coronary artery disease) I25.10 Preop cardiovascular exam Z01.810 CPT Codes EKG - CPT: 74441-[id number], Complete ([id number])
[2024-08-28 13:26] VITALS: BP 130/74; PULSE 58; BMI 28.7
--- OUTSIDE RECORDS SUMMARY | 2024-08-28 17:26 | XMS_ITS | Clinical Summary ---
Author Organization [facility] Address [address] [facility] 7 [place] [address] Care Team Providers Care Medical Parasitologist Name Role Phone Unavailable Primary Care Provider [...] patient's age to complete this topic Insurance [facility] [place]
== END 2024-08-28 13:50 | disposition home or self-care (01) ==
PROVIDERS: PCP Internal Medicine; Visit Provider Internal Medicine Cardiovascular Disease
DX: I10 Essential (primary) hypertension (principal); I25.10 Atherosclerotic heart disease of native coronary artery without angina pectoris; Z01.810 Encounter for preprocedural cardiovascular examination
CPT/HCPCS: 93010; 99214

== ENCOUNTER → 2024-08-28 12:45 | Outpatient (BNVA) | payer MEDICARE, SELFPAY | PROVIDERS: PCP Internal Medicine; Visit Provider Internal Medicine Cardiovascular Disease | DX: Z01.810 Encounter for preprocedural cardiovascular examination (principal); I10 Essential (primary) hypertension; I25.10 Atherosclerotic heart disease of native coronary artery without angina pectoris; Z87.891 Personal history of nicotine dependence | CPT/HCPCS: 93005 ==

== ENCOUNTER 2024-09-07 10:39 | Day surgery (SDC) | payer MEDICARE, SELFPAY ==
[2024-09-05 13:33] VITALS: BMI 28.7
--- NOTE | 2024-09-06 10:12 | P.CONAN_ITS ---
Documented by User: Karena Silva NP 09/06/24 10:16 HPI - Anesthesia Eval Consult details Narrative: 69yo F for Upper Endoscopy and Colonoscopy [place]s [facility] [place] [facility] [place] for CAD s/p VT 2014. Optimized per 08/2024 office visit. (2014 Cath showed mild to moderate proximal left circumflex artery lesion. FFR across the left circumflex artery was normal.) PMFSH Active Problems Active Problems: All Active Problems Preop cardiovascular exam (Acute) GERD (gastroesophageal reflux disease) (Acute) Erosive esophagitis (Acute) Hot flashes (Acute) Elevated CPK (Acute) Impaired fasting glucose (Acute) History of adenomatous polyp of colon (Acute) Osteopenia of lumbar spine (Acute) Insomnia disorder, with non-sleep disorder mental comorbidity (Acute) Anxiety and depression (Acute) Dyslipidemia (Acute) Hypertension (Acute) CAD (coronary artery disease) (Acute) Past Medical History Medical History Impaired fasting glucose History of adenomatous polyp of colon Osteopenia of lumbar spine Insomnia disorder, with non-sleep disorder mental comorbidity Dyslipidemia Anxiety and depression Postmenopause Positional lightheadedness HTN (hypertension) Myocardial infarct Family History Family History Father CVD (cardiovascular disease) Substance use disorder Mother CVD (cardiovascular disease) Brother Substance use disorder Mental health disorder Son Substance use disorder Surgical History Surgical History Hx of colonoscopy H/O tubal ligation Hx of tonsillectomy Hx of cardiac cath Social History Social History Housing: House Alcohol intake: never Patient Tobacco Use Status: Former Tobacco user e-Cigarette/Vaping Use: Never Used Use of substances other than those prescribed or required for medical reasons: No Advance Directives: No Advance Directives Information Provided: Yes Nutrition Risks: No Nutritional Risk Patient : No service: No Current occupational status: employed and retired Cognitive needs: No Hearing needs: No Vision needs: Yes Meds Allergies Allergy/AdvReac Type Severity Reaction Status Date / Time No Known Allergies Allergy Verified 08/22/24 11:35 Home Medications ?Medication ?Instructions ?Recorded ?Confirmed ?Last Taken ?Type cholecalciferol (vitamin D3) 25 25 mcg PO DAILY 07/04/20 09/05/24 09/07/24 History mcg (1,000 unit) capsule latanoprost 0.005 % eye drops 1 drp ophthalmic (eye) DAILY 07/19/23 09/05/24 09/07/24 History atorvastatin 40 mg tablet 40 mg PO 02/24/24 08/28/24 Unknown History magnesium 250 mg tablet 250 mg PO DAILY 02/24/24 09/05/24 Unknown History Exam Height,Weight and Vital Signs: Height 5 ft 3 in Weight 73.482 kg Pertinent Lab Results Pertinent Lab Results: Laboratory Tests 11/21/23 08/19/24 21:18 08:04 WBC 8.0 Hgb 13.8 Hct 41.4 Plt Count 206 Sodium 141 Potassium 4.6 Chloride 109 H Carbon Dioxide 27 BUN 12 Creatinine 0.70 Narrative Narrative: EKG 08/2024 EKG Details: Sinus bradycardia 58 beats per minute, normal axis, septal infarct, left ventricular hypertrophy, QTC 420 milliseconds. ECHO 2023 Conclusions: - The left ventricular systolic function is normal. The calculated ejection fraction is 61% by biplane method. - No obvious valvular pathology seen on this study. - Small plaque is seen in the sino tubular ridge. NM cardiolite stress test 2023 Impression: 1. Normal myocardial perfusion 2. Gated LVEF is 71% 3. Transient ischemic dilatation not present Stress EKG is negative for ischemia Assessment and Plan Assessment Anesthesia Assessment: Chart Reviewed Documented by User: Thu Seals MD 09/07/24 12:23 [facility] Past Medical History Medical History Impaired fasting glucose History of adenomatous polyp of colon Osteopenia of lumbar spine Insomnia disorder, with non-sleep disorder mental comorbidity Dyslipidemia Anxiety and depression Postmenopause Positional lightheadedness HTN (hypertension) Myocardial infarct Family History Family History Father CVD (cardiovascular disease) Substance use disorder Mother CVD (cardiovascular disease) Brother Substance use disorder Mental health disorder Son Substance use disorder Surgical History Surgical History Hx of colonoscopy H/O tubal ligation Hx of tonsillectomy Hx of cardiac cath History of Problems with Anesthesia: No Social History Social History Housing: House Alcohol intake: never Patient Tobacco Use Status: Former Tobacco user e-Cigarette/Vaping Use: Never Used Use of substances other than those prescribed or required for medical reasons: No Advance Directives: No Advance Directives Information Provided: Yes Nutrition Risks: No Nutritional Risk Patient : No service: No Current occupational status: employed and retired Cognitive needs: No Hearing needs: No Vision needs: Yes Meds Allergies Allergy/AdvReac Type Severity Reaction Status Date / Time No Known Allergies Allergy Verified 08/22/24 11:35 Home Medications ?Medication ?Instructions ?Recorded ?Confirmed ?Last Taken ?Type cholecalciferol (vitamin D3) 25 25 mcg PO DAILY 07/04/20 09/05/24 09/07/24 His tory mcg (1,000 unit) capsule latanoprost 0.005 % eye drops 1 drp ophthalmic (eye) DAILY 07/19/23 09/05/24 09/07/24 History atorvastatin 40 mg tablet 40 mg PO 02/24/24 08/28/24 Unknown History magnesium 250 mg tablet 250 mg PO DAILY 02/24/24 09/05/24 Unknown History Exam Airway Mallampati Class: II TM Dist: >3cm Neck ROM: Full Partial: Upper and Lower Loose/Missing/Broken Teeth: Yes, Upper and Lower Heart: RRR Lungs: CTA Assessment and Plan Assessment Anesthesia Assessment: Anesthesia Plan Discussed Final Anesthetic Review History of Problems with Anesthesia: No NPO: Yes ASA Class: III Final Preanesthetic Review: Meds/Allgs Chart Reviewed, Consent Obtained/Reviewed and Anes Risks/Benef Reviewed Patient Risk: Intermediate Procedure Risk: Intermediate Anesthetic Plan Anesthetic Plan: MAC: Disposition: Standard PACU
--- OUTSIDE RECORDS SUMMARY | 2024-09-07 10:42 | XMS_ITS | Clinical Summary ---
Author Organization [employer] Address [address] [place] [address] Care Team Providers Care Material Handler Name Role Phone Unavailable Primary Care Provider [...] C Screening 1973 Mammogram 1995 Pneumococcal Vaccine: 50+ Years (2 of 2 - PPSV23) 07/10/2021 07/10/2020 Zoster Vaccines (2 of 2) 08/15/2022 06/20/2022 COVID-19 Vaccine (6 - season) 2024 09/30/2022, 12/15/2021, 05/15/2021, Additional history [...] patient's age to complete this topic Insurance [facility] [place]
--- NOTE | 2024-09-07 11:34 | MHC.SHP ---
Pre-Procedural Eval Section A - 24 Hr Update-Section A only Date of Service: 09/07/24 Section B - Complete if H&P > 30 days Chief Complaint: Abdominal distension (gaseous),gerd, Details of Present Illness: Hot flashes Chest pain Impaired fasting glucose History of adenomatous polyp of colon Osteopenia of lumbar spine Insomnia disorder, with non-sleep disorder mental comorbidity Dyslipidemia Anxiety and depression Postmenopause Positional lightheadedness HTN (hypertension) Myocardial infarct Surgical History Hx of colonoscopy H/O tubal ligation Hx of tonsillectomy Hx of cardiac cath Allergies: Allergies Allergy/AdvReac Type Severity Reaction Status Date / Time No Known Allergies Allergy Verified 08/22/24 11:35 Review of Systems Review of Systems Comment: Ten point ROS negative Exam Exam Comment: Gen appear: No acute distress HEENT: no icterus Chest: No overt resp distress Abd: soft, nontender, nondistended Psych: Stable affect, answering questions appropriately Neuro: A/Ox3 noted to move all extremities spontaneously Ext: no peripheral edema Plan Diagnosis/Plan: Unchanged I have reviewed the history and physical and performed a pertinent physical examination on my patient. No changes have occurred unless specified. Time Spent With Patient Time: Total time managing care of this patient today ____ minutes.
[2024-09-07 11:51] VITALS: BP 120/71; PULSE 80; RESP 16; TEMP 36.3; O2SAT 98
[2024-09-07] MEDS: Lactated Ringers 1,000 ML 100 ML IVCONT (12:05)
--- NOTE | 2024-09-07 13:00 | P.OPN-COLO_ITS ---
Colonoscopy Operative Note Operative Note Date of Service: 09/07/24 Narrative: Procedure: Upper endoscopy and colonoscopy Indication: Abd pain, abnormal UGIS, Hx of polyps Endoscopist: Aura Douglas MD Anesthesia Provider: Dr Raquel Seals Anesthesia type: MAC Instrument: [id number]-H190 and [id number]-[id number] EGD Procedure:?? The procedure, indications, preparation and potential complications were reviewed with the patient, who indicated understanding and gave written informed consent to proceed. The endoscope was introduced through the mouth, and advanced to the 2nd part of the duodenum. The mucosa was carefully examined on slow withdrawal of the endoscope. The patient tolerated the procedure well. There were no immediate complications.? EGD Findings:? * Esophagus:? The near ulceration and erosions noted at the GE junction extending up to 1 cm. There was a clean based ulcer measuring 5 mm at the GE junction. The Z-line was at 32 cm displaced by a small hiatal hernia with the diaphragmatic pinch at 36 cm. * Stomach:?Erythema and erosions in the body and antrum noted.Retroflexion was performed in the cardia that showed Hill grade II hiatal hernia. Random cold forceps biopsies were taken from the stomach. * Duodenum:? Diffuse semi lunar ulcerations with pigment spots were noted throughout the duodenum to the extent examined. Cold forceps biopsies were taken for histology. Colonoscopy Procedure:? The patient was then turned for the colonoscopy. A digital rectal exam was performed which was abnormal for external hemorrhoids.? A distal attachment cap was affixed to the tip of the scope and the colonoscope was then inserted thro ugh the anus and advanced through the colon and advanced to the cecum at 70 cm and terminal ileum.? Appendiceal orifice and ileocecal valve were identified. Mucosa was carefully examined under high definition white light as the instrument was slowly withdrawn in a retrograde panoramic fashion. Retroflexion was performed in ascending colon and rectum. The procedure was not difficult. The quality of the prep was BBPS: 3+2+3 = adequate Withdrawal time 9 minutes Limitations: No limitations Findings: Mucosa: Normal colon and terminal ileum mucosa. Protruding lesions: * 1 sessile polyp of size 7 mm in ascending colon. Cold snare polypectomy was performed. The polyp was completely removed and retrieved. * 1 sessile polyp of size 4 mm noted in the transverse colon. Cold snare polypectomy was performed. The polyp was completely removed and retrieved. * Large internal hemorrhoids without stigmata of recent bleeding. Excavated lesions: * Diffuse diverticulosis of left side of the colon, with rare diverticuli in right side of the colon. Impression: 1. Grade D esophagitis 2. Gastritis (biopsy) 3. Severe duodenitis (biopsy) 4. Normal colon and terminal ileum mucosa 5. Total of 2 polyps removed 6. Diverticulosis 7. Internal and external hemorrhoids Recommendations:?? * Fasting gastrin level to be drawn in PACU * 1 dose of IV protonix to be given after the lab has been drawn * Pt to continue esomeprazole 20 twice a day x 8-12 weeks and then once daily * Add sucralfate 10 ml QID x 14 days * Repeat EGD to be booked in 2-3 months to ensure healing and r/o underlying BE * Follow-up path results * Avoid NSAIDs * H Pylori treatment if biopsies + * Repeat colonoscopy for CRC screening in 5-7 years.
[2024-09-07 13:02] VITALS: BP 85/47; PULSE 83; RESP 18; TEMP 36.1; O2SAT 99
[2024-09-07 13:15] VITALS: BP 96/65; PULSE 70; RESP 18; O2SAT 99
[2024-09-07 13:30] VITALS: BP 112/66; PULSE 72; RESP 18; O2SAT 99
[2024-09-07 13:45] VITALS: BP 117/72; PULSE 68; RESP 18; O2SAT 99
[2024-09-07] MEDS: Pantoprazole Sodium 40 MG/10 ML VIAL 80 MG IVPUSH (13:49)
[2024-09-13 22:53] LABS: Gastrin 35 pg/mL (<=100)
== END 2024-09-07 14:32 | disposition home or self-care (01) ==
PROVIDERS: PCP Internal Medicine; Visit Provider Internal Medicine
PROC: (CPT 45385; principal; 2024-09-07 13:10)
DX: Z12.11 Encounter for screening for malignant neoplasm of colon (principal); Z86.0101 Personal history of adenomatous and serrated colon polyps; D12.2 Benign neoplasm of ascending colon; K63.5 Polyp of colon; K57.30 Diverticulosis of large intestine without perforation or abscess without bleeding; K64.8 Other hemorrhoids; K64.4 Residual hemorrhoidal skin tags; K21.9 Gastro-esophageal reflux disease without esophagitis; K29.50 Unspecified chronic gastritis without bleeding; K28.9 Gastrojejunal ulcer, unspecified as acute or chronic, without hemorrhage or perforation; K26.9 Duodenal ulcer, unspecified as acute or chronic, without hemorrhage or perforation; K29.80 Duodenitis without bleeding; K22.10 Ulcer of esophagus without bleeding; K44.9 Diaphragmatic hernia without obstruction or gangrene; I10 Essential (primary) hypertension; E78.5 Hyperlipidemia, unspecified; R73.01 Impaired fasting glucose; M85.88 Other specified disorders of bone density and structure, other site; F41.9 Anxiety disorder, unspecified; I25.2 Old myocardial infarction; Z79.899 Other long term (current) drug therapy; Z87.891 Personal history of nicotine dependence; Z98.890 Other specified postprocedural states
CPT/HCPCS: 45385; 43239; 36415; 82941; 88305; 88313; 88342; J2003; J2371; J2470; J2704

== ENCOUNTER 2024-09-22 08:16 | Outpatient (AMB) | payer MEDICARE, SELFPAY ==
--- NOTE | 2024-09-22 08:20 | A.OFFVIS_ITS ---
Vital Signs 09/22/24 08:22 Height 5 ft 3 in Weight 160 lb 7.944 oz BMI 28.4 BP 156/66 H Blood Pressure Location Lt radial Position Sitting Pulse 66 Pulse Source Pulse Oximeter Pulse Oximetry (%) 97 Oxygen Delivery Method Room Air Intake Visit Reasons: S/P double; Dr. Douglas Intake Note: ESTABLISHED PATIENT for s/p duo FUV. Chief Complaint; C/O general GI upset occurring more frequently lately w/ audible bowel sounds. Pt also reports having intermittent foul smelling BMs, 1/week. Pt also reports new onset within the last 2-3 days of chest/ L shoulder pain. Pt denies any arm numbness, SoB, or other sx. Non reproducible pain. Intermittent in nature. No known trauma. Pt denies any other concerns at this time. Assistant At Surgery Required: No Allergies No Known Allergies Allergy (Verified 09/22/24 08:20) HPI HPI S/P double; Dr. Douglas: Details: LAST VISIT GERD (gastroesophageal reflux disease) Dysphagia Dyspepsia Postprandial abdominal bloating Screen for colon cancer Plan Continue PPI and H2 jerry. Avoid dietary triggers and late night snacking. Staying upright for minimum 3 hours after meals discussed with patient. What to expect before during and after procedure discussed with patient. Stressed the importance of good bowel prep and clear liquid diet day before procedure. I will see patient after the procedure, sooner on as needed basis. Patient is agreeable to plan of care and verbalizes understanding of instructions. She was given the opportunity to ask questions and all questions answered. UPPER ENDOSCOPY AND COLONOSCOPY EGD Findings:? * Esophagus:? The near ulceration and erosions noted at the GE junction extending up to 1 cm. There was a clean based ulcer measuring 5 mm at the GE junction. The Z-line was at 32 cm displaced by a small hiatal hernia with the diaphragmatic pinch at 36 cm. * Stomach:?Erythema and erosions in the body and antrum noted.Retroflexion was performed in the cardia that showed Hill grade II hiatal hernia. Random cold forceps biopsies were taken from the stomach. * Duodenum:? Diffuse semi lunar ulcerations with pigment spots were noted throughout the duodenum to the extent examined. Cold forceps biopsies were taken for histology. Colonoscopy Procedure:? The patient was then turned for the colonoscopy. A digital rectal exam was performed which was abnormal for external hemorrhoids.? A distal attachment cap was affixed to the tip of the scope and the colonoscope was then inserted through the anus and advanced through the colon and advanced to the cecum at 70 cm and terminal ileum.? Appendiceal orifice and ileocecal valve were identified. Mucosa was carefully examined under high definition white light as the instrument was slowly withdrawn in a retrograde panoramic fashion. Retroflexion was performed in ascending colon and rectum. The procedure was not difficult. The quality of the prep was BBPS: 3+2+3 = adequate Withdrawal time 9 minutes Limitations: No limitations Findings: Mucosa: Normal colon and terminal ileum mucosa. Protruding lesions: * 1 sessile polyp of size 7 mm in ascending colon. Cold snare polypectomy was performed. The polyp was completely removed and retrieved. * 1 sessile polyp of size 4 mm noted in the transverse colon. Cold snare polypectomy was performed. The polyp was completely removed and retrieved. * Large internal hemorrhoids without stigmata of recent bleeding.Excavated lesions: * Diffuse diverticulosis of left side of the colon, with rare diverticuli in right side of the colon. Impression: 1. Grade D esophagitis 2. Gastritis (biopsy) 3. Severe duodenitis (biopsy) 4. Normal colon and terminal ileum mucosa 5. Total of 2 polyps removed 6. Diverticulosis 7. Internal and external hemorrhoids Recommendations:?? * Fasting gastrin level to be drawn in PACU * 1 dose of IV protonix to be given after the lab has been drawn * Pt to continue esomeprazole 20 twice a day x 8-12 weeks and then once daily * Add sucralfate 10 ml QID x 14 days * Repeat EGD to be booked in 2-3 months to ensure healing and r/o underlying BE * Follow-up path results * Avoid NSAIDs * H Pylori treatment if biopsies + * Repeat colonoscopy for CRC screening in 5-7 years. PATHOLOGY RESULTS Diagnosis A. Duodenum, biopsy: Chronic active erosive duodenitis. B. Stomach, random, biopsy: Antral-type and oxyntic mucosa with moderate chronic active inflammation; no Helicobacter organisms seen. C. Colon, ascending, polypectomy: Tubular adenoma; negative for high-grade dysplasia or carcinoma. D. Colon, transverse, polypectomy: Colonic mucosa with mild surface hyperplastic changes TODAY'S VISIT Patient is here today for follow-up and to discuss upper endoscopy and colonoscopy results. Patient denies any ill effects from the prep, anesthesia or procedure itself. Chronic active erosive duodenitis seen no H pylori. One tubular adenoma without high-grade dysplasia or carcinoma found. Patient is taking as omeprazole twice a day and was placed on sucralfate 4 times a day seen days she just finished that today. Patient reports that her acid reflux is suppressed with PPI at this point. Patient admits to have abdominal bloating postprandially. Patient is drinking milk and eating food containing lactose. Patient reports that she is moving her bowels without any issues once or twice a day. Denies constipation, diarrhea, mucus in her stools. Patient denies dyspepsia, dysphagia or odynophagia. [facility] Medical History (Updated 09/22/24 @ 09:04 by Kathrin Rincon, [facility]) Tubular adenoma of colon Normal esophagogastroduodenoscopy (EGD) Myocardial infarct Impaired fasting glucose History of adenomatous polyp of colon Osteopenia of lumbar spine Insomnia disorder, with non-sleep disorder mental comorbidity Dyslipidemia Anxiety and depression Postmenopause Positional lightheadedness HTN (hypertension) Myocardial infarct Surgical History Hx of colonoscopy H/O tubal ligation Hx of tonsillectomy Hx of cardiac cath Family History Father CVD (cardiovascular disease) Substance use disorder Mother CVD (cardiovascular disease) Brother Substance use disorder Mental health disorder Son Substance use disorder Social History Housing: House Alcohol intake: never Patient Tobacco Use Status: Former Tobacco user e-Cigarette/Vaping Use: Never Used service: No Current occupational status: employed and retired Cognitive needs: No Hearing needs: No Vision needs: Yes Review of Systems Const Denies weight gain and Denies weight loss ENT Reports no additional complaints, Denies dysphagia and Denies odynophagia Card Reports no additional complaints Resp Reports no additional complaints GI Reports abdominal pain (Occasional ), Denies belching, Denies melena, Reports bloating, Denies change in bowel habits, Denies dysphagia, Denies excessive flatus, Denies dyspepsia, Denies heartburn, Denies diarrhea, Denies loose stools, Denies nausea, Denies odynophagia and Denies vomiting Reports no additional complaints Musc Reports no additional complaints Neuro Reports no additional complaints Psych Reports no additional complaints Endo Reports no additional complaints Physical Exam Vital Signs: Last Vital Signs Pulse 66 09/22/24 08:22 BP 156/66 H 09/22/24 08:22 Pulse Ox 97 09/22/24 08:22 Oxygen Delivery Method Room Air 09/22/24 08:22 BMI result Body Mass Index 28.4 Const General: healthy appearing, no acute distress and well developed Nutritional Appearance: well nourished Orientation/consciousness: patient oriented x3 Resp Effort & Inspection: normal respiratory effort, able to speak in complete sentences, no tracheal deviation and symmetric chest movement Auscultation: clear to auscultation bilaterally Cardio Rate: regular rate GI Inspection: Yes normal to inspection and No distended Palpation (GI): Soft to palpation, not firm, nontender and No hepatosplenomegaly present Auscultation: normal bowel sounds General: Yes no CVA tenderness Back/Spine/Pelvis Back: no CVA tenderness Skin General skin exam: elasticity normal, turgor normal and dry skin Neuro General: patient oriented x3 Psych Appearance: grossly normal Mental Status: mental status grossly normal Assessment & Plan Assessment & Plan (1) GERD (gastroesophageal reflux disease): Code(s): K21.9 - Gastro-esophageal reflux disease without esophagitis Category: Medical Qualifiers: Esophagitis presence: esophagitis presence not specified Qualified Code(s): K21.9 - Gastro-esophageal reflux disease without esophagitis (2) Erosive esophagitis: Code(s): K22.10 - Ulcer of esophagus without bleeding Category: Medical (3) History of adenomatous polyp of colon: Code(s): Z86.010 - Personal history of colon polyps Category: Medical (4) Tubular adenoma of colon: Code(s): D12.6 - Benign neoplasm of colon, unspecified Category: Medical (5) Postprandial abdominal bloating: Code(s): R14.0 - Abdominal distension (gaseous) Plan 1 tubular adenoma without high-grade dysplasia or carcinoma found. Colonoscopy in 5 years, sooner if clinically necessary. Patient had erosive duodenitis and esophagitis, patient will need to have endoscopy repeated in 2-3 months. Patient will speak to schedulers today. Continue esomeprazole twice a day. Avoid dietary triggers and late night snacking. Staying upright for minimum 3 hours after meals discussed with patient. Patient reports to have abdominal bloating postprandially. Discuss low FODMAP diet. List of food recommended as well as list of food to avoid given to patient. Patient will follow-up in our office after the procedure, sooner on as needed basis. She is agreeable to this plan and verbalizes understanding of instructions. She was given the opportunity to ask questions and all questions answered. Thank you for allowing me to participate in her care Coding Level of Care Code Est Pt Level 4 (73569) Complex EM visit Add On G2211 Diagnoses Gastroesophageal reflux disease, unspecified whether esophagitis present K21.9 Esophagitis presence: esophagitis presence not specified Erosive esophagitis K22.10 History of adenomatous polyp of colon Z86.010 Tubular adenoma of colon D12.6 Postprandial abdominal bloating R14.0 Time Spent (min) 35 Comment 25 minutes spent with patient and additional 10 minutes spent reviewing her records
--- OUTSIDE RECORDS SUMMARY | 2024-09-22 08:20 | XMS_ITS | Clinical Summary ---
Author Organization [employer] Address [address] [facility] [address] [place] [address] Care Team Providers Care Split Leather Mosser Name Role Phone Unavailable Primary Care Provider [...] patient's age to complete this topic Insurance [facility] [place]
[2024-09-22 08:22] VITALS: BP 156/66; PULSE 66; O2SAT 97; BMI 28.4
== END 2024-09-22 12:20 | disposition home or self-care (01) ==
PROVIDERS: PCP Internal Medicine; Visit Provider Nurse Practitioner Family
DX: K21.9 Gastro-esophageal reflux disease without esophagitis (principal); K22.10 Ulcer of esophagus without bleeding; Z86.0100 Personal history of colon polyps, unspecified; D12.6 Benign neoplasm of colon, unspecified; R14.0 Abdominal distension (gaseous)
CPT/HCPCS: 99214; G2211

== ENCOUNTER → 2024-09-22 08:16 | Outpatient (BNVA) | payer MEDICARE, SELFPAY | PROVIDERS: PCP Internal Medicine; Visit Provider Nurse Practitioner Family | DX: D12.6 Benign neoplasm of colon, unspecified (principal); K21.9 Gastro-esophageal reflux disease without esophagitis; K22.10 Ulcer of esophagus without bleeding; R14.0 Abdominal distension (gaseous); Z86.0101 Personal history of adenomatous and serrated colon polyps | CPT/HCPCS: 99212 ==

== ENCOUNTER 2024-12-07 08:47 | Day surgery (SDC) | payer MEDICARE, SELFPAY ==
--- OUTSIDE RECORDS SUMMARY | 2024-11-23 11:29 | XMS_ITS | Clinical Summary ---
Author Organization [employer] Address [address] [facility] [address] [place] [address] Care Team Providers Care Women'S Basketball Coach Name Role Phone Unavailable Primary Care Provider [...] patient's age to complete this topic Insurance [facility] [place]
[2024-12-05 11:16] VITALS: BMI 28.3
--- NOTE | 2024-12-06 08:43 | P.CONAN_ITS ---
Documented by User: Karena Silva NP 12/06/24 08:46 HPI - Anesthesia Eval Consult details Narrative: 69yo F for Upper Endoscopy Optimized to proceed with [place] [facility] [place] [facility] for [facility] Active Problems Active Problems: All Active Problems Preop cardiovascular exam (Acute) GERD (gastroesophageal reflux disease) (Acute) Erosive esophagitis (Acute) Hot flashes (Acute) Elevated CPK (Acute) CAD (coronary artery disease) (Acute) Hypertension (Acute) Tubular adenoma of colon (Acute) Impaired fasting glucose (Acute) History of adenomatous polyp of colon (Acute) Osteopenia of lumbar spine (Acute) Insomnia disorder, with non-sleep disorder mental comorbidity (Acute) Anxiety and depression (Acute) Dyslipidemia (Acute) Past Medical History Medical History CAD (coronary artery disease) Tubular adenoma of colon Myocardial infarct Impaired fasting glucose History of adenomatous polyp of colon Osteopenia of lumbar spine Insomnia disorder, with non-sleep disorder mental comorbidity Dyslipidemia Anxiety and depression Postmenopause Positional lightheadedness HTN (hypertension) Family History Family History Father CVD (cardiovascular disease) Substance use disorder Mother CVD (cardiovascular disease) Brother Substance use disorder Mental health disorder Son Substance use disorder Surgical History Surgical History History of esophagogastroduodenoscopy (EGD) Hx of colonoscopy H/O tubal ligation Hx of tonsillectomy Hx of cardiac cath History of Problems with Anesthesia: No Social History Social History Housing: House Are you a primary careers adviser to a significant other at home: No Do you presently have visiting nurse or other home services: No Alcohol intake: never Patient Tobacco Use Status: Former Tobacco user e-Cigarette/Vaping Use: Never Used Use of substances other than those prescribed or required for medical reasons: No Have you been hit, kicked, punched, or otherwise hurt by someone within the past year? If so, by whom?: No Advance Directives: No Advance Directives Information Provided: Yes Poor oral hygiene: No service: No Current occupational status: employed and retired Cognitive needs: No Hearing needs: No Vision needs: Yes Meds Allergies Allergy/AdvReac Type Severity Reaction Status Date / Time No Known Allergies Allergy Verified 09/22/24 08:20 Home Medications ?Medication ?Instructions ?Recorded ?Confirmed ?Last Taken ?Type cholecalciferol (vitamin D3) 25 25 mcg PO DAILY 07/04/20 12/07/24 09/07/24 History mcg (1,000 unit) capsule latanoprost 0.005 % eye drops 1 drp ophthalmic (eye) DAILY 07/19/23 12/07/24 09/07/24 History atorvastatin 40 mg tablet 40 mg PO DAILY 02/24/24 12/07/24 Unknown History magnesium 250 mg tablet 250 mg PO DAILY 02/24/24 12/07/24 Unknown History dorzolamide 22.3 mg-timolol 6.8 1 drp ophthalmic (eye) BID 09/22/24 12/07/24 12/07/24 History mg/mL eye drops Exam Height,Weight and Vital Signs: Height 5 ft 3 in Weight 72.575 kg Narrative Narrative: EKG 08/2024 Details: Sinus bradycardia 58 beats per minute, normal axis, septal infarct, left ventricular hypertrophy, QTC 420 milliseconds. Assessment and Plan Assessment Anesthesia Assessment: Chart Reviewed Final Anesthetic Review History of Problems with Anesthesia: No Documented by User: Radha Avalos MD 12/07/24 12:09 [facility] Active Problems Active Problems: All Active Problems Preop cardiovascular exam (Acute) GERD (gastroesophageal reflux disease) (Acute) Erosive esophagitis (Acute) Hot flashes (Acute) Elevated CPK (Acute) CAD (coronary artery disease) (Acute)- denies recent chest pain. CT 21 years ago Hypertension (Acute) Tubular adenoma of colon (Acute) Impaired fasting glucose (Acute) History of adenomatous polyp of colon (Acute) Osteopenia of lumbar spine (Acute) Insomnia disorder, with non-sleep disorder mental comorbidity (Acute) Anxiety and depression (Acute) Dyslipidemia (Acute) Past Medical History Medical History CAD (coronary artery disease) Tubular adenoma of colon Myocardial infarct Impaired fasting glucose History of adenomatous polyp of colon Osteopenia of lumbar spine Insomnia disorder, with non-sleep disorder mental comorbidity Dyslipidemia Anxiety and depression Postmenopause Positional lightheadedness HTN (hypertension) Family History Family History Father CVD (cardiovascular disease) Substance use disorder Mother CVD (cardiovascular disease) Brother Substance use disorder Mental health disorder Son Substance use disorder Family history of problems with anesthesia: No Surgical History Surgical History History of esophagogastroduodenoscopy (EGD) Hx of colonoscopy H/O tubal ligation Hx of tonsillectomy Hx of cardiac cath History of Problems with Anesthesia: No Social History Social History Housing: House Are you a primary careers adviser to a significant other at home: No Do you presently have visiting nurse or other home services: No Alcohol intake: never Patient Tobacco Use Status: Former Tobacco user e-Cigarette/Vaping Use: Never Used Use of substances other than those prescribed or required for medical reasons: No Have you been hit, kicked, punched, or otherwise hurt by someone within the past year? If so, by whom?: No Advance Directives: No Advance Directives Information Provided: Yes Poor oral hygiene: No service: No Current occupational status: employed and retired Cognitive needs: No Hearing needs: No Vision needs: Yes Meds Allergies Allergy/AdvReac Type Severity Reaction Status Date / Time No Known Allergies Allergy Verified 09/22/24 08:20 Home Medications ?Medication ?Instructions ?Recorded ?Confirmed ?Last Taken ?Type cholecalciferol (vitamin D3) 25 25 mcg PO DAILY 07/04/20 12/07/24 09/07/24 History mcg (1,000 unit) capsule latanoprost 0.005 % eye drops 1 drp ophthalmic (eye) DAILY 07/19/23 12/07/24 09/07/24 History atorvastatin 40 mg tablet 40 mg PO DAILY 02/24/24 12/07/24 Unknown History magnesium 250 mg tablet 250 mg PO DAILY 02/24/24 12/07/24 Unknown History dorzolamide 22.3 mg-timolol 6.8 1 drp ophthalmic (eye) BID 09/22/24 12/07/24 12/07/24 History mg/mL eye drops Exam Height,Weight and Vital Signs: Height 5 ft 3 in Weight 72.575 kg Vital Signs Temp Pulse Resp BP Pulse Ox O2 Del Method 12/07/24 10:19 97.9 F 60 14 153/75 H 99 Room Air Airway Mallampati Class: II TM Dist: >3cm Neck ROM: Full Loose/Missing/Broken Teeth: Yes (Broken teeth top front. Missing several teeth top and bottom. Denies loose teeth) Heart: RRR Lungs: CTAB Assessment and Plan Assessment Anesthesia Assessment: Anesthesia Plan Discussed and Chart Reviewed Final Anesthetic Review Family History of Problems with Anesthesia: No History of Problems with Anesthesia: No NPO: Yes ASA Class: III Final Preanesthetic Review: No Changes in Pt Med Stat, Meds/Allgs Chart Reviewed, Consent Obtained/Reviewed and Anes Risks/Benef Reviewed Patient Risk: Intermediate Procedure Risk: Low Assessment/Block/Sedation in SS: Assess/Block/Sedation-SS Anesthetic Plan Anesthetic Plan: TIVA Disposition: Standard PACU
[2024-12-07 10:19] VITALS: BP 153/75; PULSE 60; RESP 14; TEMP 36.6; O2SAT 99; BMI 28.5
[2024-12-07] MEDS: Lactated Ringers 1,000 ML 100 ML IVCONT (10:29)
--- NOTE | 2024-12-07 10:52 | P.HPSUR_ITS ---
Pre-Procedural Eval Section A - 24 Hr Update-Section A only Date of Service: 12/07/24 Section B - Complete if H&P > 30 days Chief Complaint: esophagitis Details of Present Illness: Hot flashes Chest pain Impaired fasting glucose History of adenomatous polyp of colon Osteopenia of lumbar spine Insomnia disorder, with non-sleep disorder mental comorbidity Dyslipidemia Anxiety and depression Postmenopause Positional lightheadedness HTN (hypertension) Myocardial infarct Surgical History Hx of colonoscopy H/O tubal ligation Hx of tonsillectomy Hx of cardiac cath Present Medications: see Short Stay Collaborative assessment Allergies: Allergies Allergy/AdvReac Type Severity Reaction Status Date / Time No Known Allergies Allergy Verified 09/22/24 08:20 Review of Systems Review of Systems Comment: Ten point ROS negative Exam Exam Comment: Gen appear: No acute distress HEENT: no icterus Chest: No overt resp distress Abd: soft, nontender, nondistended Psych: Stable affect, answering questions appropriately Neuro: A/Ox3 noted to move all extremities spontaneously Ext: no peripheral edema Plan Diagnosis/Plan: Unchanged I have reviewed the history and physical and performed a pertinent physical examination on my patient. No changes have occurred unless specified. Time Spent With Patient Time: Total time managing care of this patient today ____ minutes.
--- NOTE | 2024-12-07 12:31 | P.OP_ITS ---
Operative Note Operative Note Date of Service: 12/07/24 Narrative: Procedure: Esophagogastroduodenoscopy Endoscopist: Aura Douglas MD Indication: Grade D esophagitis Anesthesia Provider: Dr Radha Avalos Anesthesia Type: MAC ?? EGD Procedure:?? The procedure, indications, preparation and potential complications were reviewed with the patient, who indicated understanding and gave written informed consent to proceed. A physical exam was performed. The endoscope was introduced through the mouth, and advanced to the second part of duodenum. The mucosa was carefully examined on slow withdrawal of the endoscope. The patient tolerated the procedure well. There were no immediate complications.? ? EGD Findings:? * Esophagus:? Normal mucosa noted in the entire esophagus. The Z line was at 33 cm displaced by a small hiatal hernia with the diaphragmatic pinch at 36 cm. Middle and lower esophagus forceps biopsies were obtained to rule out eosinophilic esophagitis. * Stomach:? Normal mucosa was noted in the stomach. Retroflexion was performed in the cardia that showed Hill grade 2 hiatal hernia. * Duodenum:? Normal mucosa was noted in the whole of the examined duodenum. ? EGD Impressions:? * Normal esophagus (biopsy) * Hiatal hernia * Normal stomach * Normal duodenum ?? Recommendations:?? * Follow biopsy results. Our office will call or send a letter with results within 7-10 days. * Decrease esomeprazole to 20 mg once daily * Avoid NSAIDs. * Repeat colonoscopy due next year for polyp surveillance Above has been reviewed with the patient. Relevant educational hand outs were provided at discharge.
[2024-12-07 12:32] VITALS: BP 115/65; PULSE 71; RESP 26; TEMP 36.1
[2024-12-07 12:43] VITALS: BP 137/81; PULSE 64; RESP 18; O2SAT 99
== END 2024-12-07 13:01 | disposition home or self-care (01) ==
PROVIDERS: PCP Internal Medicine; Visit Provider Internal Medicine
PROC: 0DJ08ZZ Inspection of Upper Intestinal Tract, Via Natural or Artificial Opening Endoscopic (ICD-10-PCS; CPT 43235; principal; 2024-12-07 11:50)
DX: K20.80 Other esophagitis without bleeding (principal); K21.9 Gastro-esophageal reflux disease without esophagitis; K44.9 Diaphragmatic hernia without obstruction or gangrene; I10 Essential (primary) hypertension; E78.5 Hyperlipidemia, unspecified; I25.2 Old myocardial infarction; R73.01 Impaired fasting glucose; F41.9 Anxiety disorder, unspecified; Z79.899 Other long term (current) drug therapy; Z87.891 Personal history of nicotine dependence
CPT/HCPCS: 43239; 88305; J2003; J2704

== ENCOUNTER → 2024-12-07 08:47 | Outpatient (BNV) | payer MEDICARE, SELFPAY | PROVIDERS: PCP Internal Medicine; Visit Provider Internal Medicine | DX: K20.90 Esophagitis, unspecified without bleeding (principal) | CPT/HCPCS: 43239 ==

== ENCOUNTER 2024-12-08 08:58 | Outpatient (AMB) | payer MEDICARE, SELFPAY ==
--- NOTE | 2024-12-08 09:00 | MHC.OFFVIS ---
Vital Signs 12/08/24 09:01 Height 5 ft 3 in Weight 160 lb BMI 28.3 BP 151/84 H Blood Pressure Location Lt brachial Position Sitting Pulse 68 Pulse Oximetry (%) 98 Oxygen Delivery Method Room Air Intake Visit Reasons: S/P EGD; Misael Intake Note: Patient follow up for EGD results. Patient cc: chronic gasses, denies any GI issues. Dr. Douglas change her Esomeprazole to be daily. 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 Colonoscopy in 5 years, sooner if clinically necessary. Patient had erosive duodenitis and esophagitis, patient will need to have endoscopy repeated in 2-3 months. Patient will speak to schedulers today. Continue esomeprazole twice a day. Avoid dietary triggers and late night snacking. Staying upright for minimum 3 hours after meals discussed with patient. Patient reports to have abdominal bloating postprandially. Discuss low FODMAP diet. List of food recommended as well as list of food to avoid given to patient. Patient will follow-up in our office after the procedure, sooner on as needed basis. She is agreeable to this plan and verbalizes understanding of instructions. She was given the opportunity to ask questions and all questions answered. ? UPPER ENDOSCOPY EGD Findings:? Esophagus:? Normal mucosa noted in the entire esophagus. The Z line was at 33 cm displaced by a small hiatal hernia with the diaphragmatic pinch at 36 cm. Middle and lower esophagus forceps biopsies were obtained to rule out eosinophilic esophagitis. Stomach:? Normal mucosa was noted in the stomach. Retroflexion was performed in the cardia that showed Hill grade 2 hiatal hernia. Duodenum:? Normal mucosa was noted in the whole of the examined duodenum. ? EGD Impressions:? Normal esophagus (biopsy) Hiatal hernia Normal stomach Normal duodenum ?? Recommendations:?? Follow biopsy results. Our office will call or send a letter with results within 7-10 days. Decrease esomeprazole to 20 mg once daily Avoid NSAIDs. Repeat colonoscopy due next year for polyp surveillance TODAY'S VISIT Patient is here today for follow-up and to discuss upper endoscopy results. Upper endoscopy done yesterday, biopsy is not available yet. Patient however had normal esophagus, normal stomach and normal duodenum. Esomeprazole was decreased to 20 mg daily. Patient reports that she is feeling well. Denies acid reflux, dyspepsia, dysphagia or odynophagia. Patient does however report occasional abdominal bloating. Denies any other GI concerning symptoms. [facility] Medical History CAD (coronary artery disease) Tubular adenoma of colon Myocardial infarct Impaired fasting glucose History of adenomatous polyp of colon Osteopenia of lumbar spine Insomnia disorder, with non-sleep disorder mental comorbidity Dyslipidemia Anxiety and depression Postmenopause Positional lightheadedness HTN (hypertension) Surgical History (Updated 12/08/24 @ 09:07 by Francesca Layton) History of esophagogastroduodenoscopy (EGD) Hx of colonoscopy H/O tubal ligation Hx of tonsillectomy Hx of cardiac cath Family History Father CVD (cardiovascular disease) Substance use disorder Mother CVD (cardiovascular disease) Brother Substance use disorder Mental health disorder Son Substance use disorder Social History Housing: House Are you a primary outdoor emergency care technician to a significant other at home: No Do you presently have visiting nurse or other home services: No Alcohol intake: never Patient Tobacco Use Status: Former Tobacco user e-Cigarette/Vaping Use: Never Used service: No Current occupational status: employed and retired Cognitive needs: No Hearing needs: No Vision needs: Yes Review of Systems Const Denies weight gain and Denies weight loss ENT Reports no additional complaints, Denies dysphagia and Denies odynophagia Card Reports no additional complaints Resp Reports no additional complaints GI Denies abdominal pain, Denies belching, Denies melena, Reports bloating, Denies change in bowel habits, Denies dysphagia, Denies excessive flatus, Denies dyspepsia, Denies heartburn, Denies diarrhea, Denies loose stools, Denies nausea, Denies odynophagia and Denies vomiting Reports no additional complaints Musc Reports no additional complaints Neuro Reports no additional complaints Psych Reports no additional complaints Endo Reports no additional complaints Physical Exam Vital Signs: Last Vital Signs Pulse 68 12/08/24 09:01 BP 151/84 H 12/08/24 09:01 Pulse Ox 98 12/08/24 09:01 Oxygen Delivery Method Room Air 12/08/24 09:01 BMI result Body Mass Index 28.3 Const General: healthy appearing, no acute distress and well developed Nutritional Appearance: well nourished Orientation/consciousness: patient oriented x3 Resp Effort & Inspection: normal respiratory effort, able to speak in complete sentences, no tracheal deviation and symmetric chest movement Auscultation: clear to auscultation bilaterally Cardio Rate: regular rate GI Inspection: Yes normal to inspection and No distended Palpation (GI): Soft to palpation, not firm, nontender and No hepatosplenomegaly present Auscultation: normal bowel sounds General: Yes no CVA tenderness Back/Spine/Pelvis Back: no CVA tenderness Skin General skin exam: elasticity normal, turgor normal and dry skin Neuro General: patient oriented x3 Psych Appearance: grossly normal Mental Status: mental status grossly normal Assessment & Plan Assessment & Plan (1) GERD (gastroesophageal reflux disease): Code(s): K21.9 - Gastro-esophageal reflux disease without esophagitis Category: Medical Qualifiers: Esophagitis presence: esophagitis presence not specified Qualified Code(s): K21.9 - Gastro-esophageal reflux disease without esophagitis (2) Erosive esophagitis: Code(s): K22.10 - Ulcer of esophagus without bleeding Category: Medical (3) History of adenomatous polyp of colon: Code(s): Z86.010 - Personal history of colon polyps Category: Medical (4) Tubular adenoma of colon: Code(s): D12.6 - Benign neoplasm of colon, unspecified Category: Medical (5) Postprandial abdominal bloating: Code(s): R14.0 - Abdominal distension (gaseous) Plan Patient will continue taking Nexium in the morning and may take famotidine at bedtime. Avoid dietary triggers and late night snacking. Staying upright for minimum 3 hours after meals discussed with patient. Follow-up in the office in 3-4 months. Patient will call us if she will have any GI concerning symptoms. Patient is agreeable to this plan and verbalizes understanding of instructions. She was given the opportunity to ask questions and all questions answered. Thank you for allowing me to participate in her care Medications: Refilled famotidine (Pepcid) 20 mg PO BEDTIME 30 tabs 4RF K21.9 - Gastro-esophageal reflux disease without esophagitis Coding Level of Care Code Est Pt Level 3 (58359) Diagnoses Gastroesophageal reflux disease, unspecified whether esophagitis present K21.9 Esophagitis presence: esophagitis presence not specified Erosive esophagitis K22.10 History of adenomatous polyp of colon Z86.010 Tubular adenoma of colon D12.6 Postprandial abdominal bloating R14.0 Time Spent (min) 25 Comment 15 minutes spent with patient and additional 10 minutes spent reviewing her records
[2024-12-08 09:01] VITALS: BP 151/84; PULSE 68; O2SAT 98; BMI 28.3
--- OUTSIDE RECORDS SUMMARY | 2024-12-08 09:12 | XMS_ITS | Clinical Summary ---
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
== END 2024-12-08 09:25 | disposition home or self-care (01) ==
LOC: HO.HGI 08:59
PROVIDERS: PCP Internal Medicine; Visit Provider Nurse Practitioner Family
DX: K21.9 Gastro-esophageal reflux disease without esophagitis (principal); K22.10 Ulcer of esophagus without bleeding; Z86.0100 Personal history of colon polyps, unspecified; D12.6 Benign neoplasm of colon, unspecified; R14.0 Abdominal distension (gaseous)
CPT/HCPCS: 99213

== ENCOUNTER → 2024-12-08 08:58 | Outpatient (BNVA) | payer MEDICARE, SELFPAY | PROVIDERS: PCP Internal Medicine; Visit Provider Nurse Practitioner Family | DX: K21.9 Gastro-esophageal reflux disease without esophagitis (principal); K22.10 Ulcer of esophagus without bleeding; D12.6 Benign neoplasm of colon, unspecified; R14.0 Abdominal distension (gaseous); Z86.0100 Personal history of colon polyps, unspecified | CPT/HCPCS: 99212 ==

== ENCOUNTER 2025-01-25 12:35 | Outpatient (AMB) | payer MEDICARE, SELFPAY ==
[2025-01-25 12:37] VITALS: BP 144/90; PULSE 69; RESP 15; TEMP 36.8; O2SAT 96; BMI 28.5
--- NOTE | 2025-01-25 12:37 | A.OFFPC_ITS ---
Vital Signs 01/25/25 12:37 Height 5 ft 3 in Weight 161 lb BMI 28.5 BP 144/90 H Blood Pressure Location Rt brachial Position Sitting Respiration 15 Pulse 69 Pulse Source Pulse Oximeter Temp 98.3 F Temp Source Oral Pulse Oximetry (%) 96 Oxygen Delivery Method Room Air Intake Visit Reasons: PE reschedule from 11/27 - see comments Intake Note: Pt is here today for her PE: last mammogram 01/14/24, bone density scan 01/06/22, colonoscopy 09/07/24 Allergies No Known Allergies Allergy (Verified 01/29/25 21:40) Medication List - Last Reconciled 01/25/25 by Tonie Cheema MD atorvastatin 40 mg PO DAILY buspirone 5 mg PO TID cholecalciferol (vitamin D3) 25 mcg PO DAILY dorzolamide-timolol 22.3-6.8 mg/mL 1 drp ophthalmic (eye) BID esomeprazole magnesium 20 mg PO DAILY 90 days famotidine (Pepcid) 20 mg PO BEDTIME latanoprost 0.005% 1 drp ophthalmic (eye) DAILY lisinopril 30 mg PO DAILY magnesium 250 mg PO DAILY metoprolol succinate ER 100 mg PO DAILY NS trazodone 50 mg PO BEDTIME PRN Tobacco use date assessed: 01/25/25 Fall risk assessment: No Falls in past year Last assessed Fall Risk: 01/25/25 Dental Screening Dental Screen Date: 01/25/25 Did you have a dental visit in the last 12 months?: Yes Did you have a dental problem in the last 6 months where you did not have access to dental care?: No Was dental information given to patient?: Patient has dentist HPI PE reschedule from 11/27 - see comments HPI Details 70 year-old lady with history of hyperli pidemia, hypertension, glaucoma and anxiety/ depression, here today for her physical exam. She has been taking her medicines as directed, and tries to adhere to recommended diet but admits to not getting any regular exercise. She gets yearly mammograms, due again this year, and has bone density was done in 2021, due for a recheck. She just had a colonoscopy done earlier this year with removal of 2 polyps , one of which is a tubular adenoma. She is due for a recheck colonoscopy in 5 years [facility] Medical History CAD (coronary artery disease) Tubular adenoma of colon Myocardial infarct Impaired fasting glucose History of adenomatous polyp of colon Osteopenia of lumbar spine Insomnia disorder, with non-sleep disorder mental comorbidity Dyslipidemia Anxiety and depression Postmenopause Positional lightheadedness HTN (hypertension) Surgical History History of esophagogastroduodenoscopy (EGD) Hx of colonoscopy H/O tubal ligation Hx of tonsillectomy Hx of cardiac cath Family History Father CVD (cardiovascular disease) Substance use disorder Mother CVD (cardiovascular disease) Brother Substance use disorder Mental health disorder Son Substance use disorder Social History Housing: House Are you a primary family day carer to a significant other at home: No Do you presently have visiting nurse or other home services: No Alcohol intake: never Patient Tobacco Use Status: Former Tobacco user e-Cigarette/Vaping Use: Never Used service: No Current occupational status: employed and retired Cognitive needs: No Hearing needs: No Vision needs: Yes Questionnaire PHQ-9 Over the last 2 weeks, how often have you been bothered by any of the following problems? Depression Screening Interpretation: Negative Depression Screening Done: Yes Source: Developed by Drs. Fahad Torres, Ellie Unger, Van Peterson and colleagues, with an educational donavan from [employer]. Thrive Questionnaire Date Thrive assessed: 01/25/25 I am a: Patient What is your living situation today?: I have a steady place to live Within the past 12 months, did the food you bought not last and you didn't have the money to get more?: Never true Within the past 12 months, did you worry whether your food would run out before you got money to buy more?: Never true Do you have trouble paying for medicines?: No Do you have trouble getting transportation to medical appointments?: No Do you have trouble paying your heating and electricity bill?: No Do you have trouble taking care of your child, family member or friend?: No Do you have trouble with day-to-day activities such as bathing, preparing meals, shopping, managing finances, etc.?: No Are you currently unemployed and looking for a job?: No Are you interested in more education?: No Please select the resources that you would like help with: None Currently or been in a relationship where the following occur: No concerns reported THRIVE Score: 0 AUDIT C Alcohol Use Questionnaire (AUDIT-C) 1. How often do you have a drink containing alcohol?: Monthly or less 2. How many drinks containing alcohol do you have on a typical day when you are drinking?: 1 or 2 3. How often do you have six or more drinks on one occasion?: Never Total Score: 1 EDDIE-7 AMB Questionnaire EDDIE-7 Date EDDIE - 7 assessed: 01/25/25 Feeling nervous, anxious, or on edge: 0 = Not at all Not being able to stop or control worryin = Not at all Worrying too much about different things: 0 = Not at all Trouble relaxin = Not at all Being so restless that it is hard to sit still: 0 = Not at all Becoming easily annoyed or irritable: 0 = Not at all Feeling afraid as if something awful might happen: 0 = Not at all Total EDDIE-7 score (0-4 normal; 5-9 mild; 10-14 moderate; 15-21 severe): 0 Source: Developed by Drs. Fahad Torres, Ellie Unger, Van Peterson and colleagues, with an educational donavan from [employer]. EDDIE-7 Assessment Billing EDDIE-7 Assessment Tool: EDDIE-7 Assessment 88216 Review of Systems Const Denies fatigue, Denies fever(s), Denies frequent falls, Denies weakness and Denies weight loss Eyes Reports blurry vision and Reports requires corrective lenses ENT Denies dizziness Card Denies chest pain, Denies leg edema, Denies lightheadedness, Denies palpitations, Denies dyspnea and Denies dyspnea on exertion Resp Denies cough, Denies dyspnea and Denies dyspnea on exertion GI Denies hematochezia Reports no additional complaints Musc Denies abnormal gait, Denies muscle weakness, Denies numbness, Denies radiating pain into limb and Denies tingling Skin/Breast Denies breast pain, Denies breast mass, Denies alopecia, Denies lesions and Denies rash Neuro Denies abnormal gait, Denies dizziness, Denies frequent falls, Denies numbness, Denies tingling and Denies weakness Psych Reports no additional complaints Endo Denies fatigue and Denies palpitations Preston/Lymph Reports no additional complaints Aller/Immun Reports no additional complaints Physical exam (Primary Care) Vital Signs: Last Vital Signs Temp 98.3 F 01/25/25 12:37 Pulse 69 01/25/25 12:37 Resp 15 01/25/25 12:37 BP 144/90 H 01/25/25 12:37 Pulse Ox 96 01/25/25 12:37 Oxygen Delivery Method Room Air 01/25/25 12:37 BMI result Body Mass Index 28.5 Tobacco/Smoking Status: Tobacco use Status Tobacco use date assessed 01/25/25 01/25/25 12:41 Patient Tobacco Use Status Former Tobacco user 01/25/25 12:41 e-Cigarette/Vaping Use Never Used 01/25/25 12:41 Depression Screening Interpretation: Negative Thrive Assessment: Date of Thrive Assessment Date Thrive assessed 01/25/25 01/25/25 12:47 Currently or been in a relationship where the following occur: No concerns reported Advance Care Planning discussion: Completed/Scanned Date of discussion: 01/25/25 Who was present: Patient Forms completed: Health Care Proxy Time spent: 16-45 minutes Actual minutes spent: 2 Const Other: Alert oriented x3, no acute cardiorespiratory distress noted ambulatory with nor mal gait Orientation/consciousness: patient oriented x3 HENMT Ears: external ears normal Face and sinus: Yes face symmetric Mouth: Normal oral and palatal mucosa present, oropharynx normal and moist mucous membranes Eyes General: appearance normal, both eyes and all related structures Neck Neck: Yes full ROM, Yes no lymphadenopathy and Yes supple Chest Chest palpation & inspection: normal inspection of the chest Breast/axilla palpation: normal palpation of the breasts Resp Auscultation: clear to auscultation bilaterally Cardio Other: S1-S2 present regular rate and rhythm GI Inspection: Yes normal to inspection Palpation (GI): Soft to palpation, nontender, no guarding and no masses Auscultation: normal bowel sounds General: Yes no CVA tenderness Back/Spine/Pelvis Back: no CVA tenderness and No back tenderness Skin General skin exam: no rashes or lesions noted Neuro General: patient oriented x3, gait normal, moves all extremities, Normal light touch and pain sensation, no focal motor deficits and CN's II-XI intact bilaterally Extrem General: Yes full ROM, Yes no joint enlargement, Yes no clubbing, cyanosis or edema and Yes normal gait Psych Appearance: grossly normal and well kempt Mental Status: mental status grossly normal Speech and movement: Normal speech and movement present Affect: normal affect Thought process: Normal thought process present Coding Level of Care Code Est Pt Prev Care >65y(27153) Diagnoses Annual visit for general adult medical examination with abnormal findings Z00. Osteopenia of lumbar spine M85.88 Primary hypertension I10 Hypertension type: primary hypertension CAD (coronary artery disease) I25.10 Anxiety and depression F41.9; F32.A History of adenomatous polyp of colon Z86.010 Impaired fasting glucose R73.01 Erosive esophagitis K22.10 Gastroesophageal reflux disease, unspecified whether esophagitis present K21.9 Esophagitis presence: esophagitis presence not specified Advanced directives, counseling/discussion Z71.89 Additional Codes EDDIE-7 Assessment Billing - EDDIE-7 Assessment Tool: EDDIE-7 Assessment 29401 ([id number]) Vital Signs *Quality* - Advance Care Planning discussion: Completed/Scanned ([id number]) Vital Signs *Quality* - Time spent: 16-45 minutes ([id number]) Assessment & Plan Assessment & Plan (1) Annual visit for general adult medical examination with abnormal findings: Code(s): Z00.01 - Encounter for general adult medical examination with abnormal findings Plan: Will check appropriate labs. Recommended dental visit every 6 months and regular eye exams, at least every 2 years. Take adequate calcium in diet and vitamin-D 3 at 2000 IU per cap once a day, in addition to weight-bearing exercises to help maintain good muscle tone and weight control. Instructed to do self-breast exam, and continue to get yearly mammogram, and bone density scan ordered today to be done together with her mammogram. Up-to-date with her screening colonoscopy due again in 5 years. Up-to-date with all her vaccines (2) Osteopenia of lumbar spine: Code(s): M85.88 - Other specified disorders of bone density and structure, other site Category: Medical Plan: Reinforced importance of doing regular weight-bearing exercise, take adequate calcium from dietary sources and continue with taking vitamin-D 3 supplements at least 2000 units daily. Bone density scan was ordered to be done together with screening mammogram this year (3) Hypertension: Code(s): I10 - Essential (primary) hypertension Category: Medical Qualifiers: Hypertension type: primary hypertension Qualified Code(s): I10 - Essential (primary) hypertension Plan: Continue with lisinopril 30 mg daily together with metoprolol 100 mg once a day (4) CAD (coronary artery disease): Code(s): I25.10 - Atherosclerotic heart disease of [place] coronary artery without angina pectoris Category: Medical Plan: Continue metoprolol succinate ER 100 mg once daily (5) Anxiety and depression: Code(s): F41.9 - Anxiety disorder, unspecified; F32.A - Depression, unspecified Category: Medical Plan: Continue with buspirone 5 mg 1 tablet 3 times a day and takes trazodone as needed for insomnia (6) History of adenomatous polyp of colon: Code(s): Z86.010 - Personal history of colon polyps Category: Medical Plan: Repeat colonoscopy due again in (7) Impaired fasting glucose: Code(s): R73.01 - Impaired fasting glucose Category: Medical Plan: Your previous fasting blood sugars were elevated above 100 mg/dL. Impaired glucose metabolism increases the risk for developing diabetes mellitus type 2, as well as heart attack and stroke later on. Lifestyle changes that promotes weight loss, healthy eating habits, and regular exercise are important, and can prevent the progression to diabetes (8) Erosive esophagitis: Code(s): K22.10 - Ulcer of esophagus without bleeding Category: Medical Plan: Continue famotidine 20 mg at night and esomeprazole 20 mg in the morning (9) GERD (gastroesophageal reflux disease): Code(s): K21.9 - Gastro-esophageal reflux disease without esophagitis Category: Medical Qualifiers: Esophagitis presence: esophagitis presence not specified Qualified Code(s): K21.9 - Gastro-esophageal reflux disease without esophagitis Plan: Continue famotidine 20 mg at night and esomeprazole 20 mg in the morning (10) Advanced directives, counseling/discussion: Code(s): Z71.89 - Other specified counseling Plan: Initiated the conversation about Advanced Directives. Advanced Directives help patients prepare for current and future decisions about their medical treatment and place of care. Discussed with patient that it is a process where a patients current condition and prognosis are reviewed, their wishes for information regarding their illness are elicited, and likely medical dilemmas are presented and options discussed. Healthcare proxy form completed today. The form can be amended as needed, reviewed yearly and make changes as needed Orders: Orders MM tomosynthesis screening BI 01/25/25 Z12.31 - Encounter for screening mammogram for malignant neoplasm of breast Basic Metabolic Panel Fasting 01/25/25 I10 - Essential (primary) hypertension, I25.10 - Atherosclerotic heart disease of [place] coronary artery without angina pectoris, K21.9 - Gastro-esophageal reflux disease without esophagitis, K22.10 - Ulcer of esophagus without bleeding, M85.88 - Other specified disorders of bone density and structure, other site, R73.01 - Impaired fasting glucose Alanine Aminotransferase 01/25/25 I10 - Essential (primary) hypertension, I25.10 - Atherosclerotic heart disease of [place] coronary artery without angina pectoris, K21.9 - Gastro-esophageal reflux disease without esophagitis, K22.10 - Ulcer of esophagus without bleeding, M85.88 - Other specified disorders of bone density and structure, other site, R73.01 - Impaired fasting glucose T Spot TB 01/25/25 Z11.1 - Encounter for screening for respiratory tuberculosis XR DEXA axial skeleton 01/25/25 M85.88 - Other specified disorders of bone density and structure, other site, Z78.0 - Asymptomatic menopausal state Aspartate Amino Transferase 01/25/25 I10 - Essential (primary) hypertension, I25.10 - Atherosclerotic heart disease of [place] coronary artery without angina pectoris, K21.9 - Gastro-esophageal reflux disease without esophagitis, K22.10 - Ulcer of esophagus without bleeding, M85.88 - Other specified disorders of bone density and structure, other site, R73.01 - Impaired fasting glucose Vitamin D 25-OH Total 01/25/25 I10 - Essential (primary) hypertension, I25.10 - Atherosclerotic heart disease of [place] coronary artery without angina pectoris, K21.9 - Gastro-esophageal reflux disease without esophagitis, K22.10 - Ulcer of esophagus without bleeding, M85.88 - Other specified disorders of bone density and structure, other site, R73.01 - Impaired fasting glucose Lipid Panel 01/25/25 I10 - Essential (primary) hypertension, I25.10 - Ath erosclerotic heart disease of [place] coronary artery without angina pectoris, K21.9 - Gastro-esophageal reflux disease without esophagitis, K22.10 - Ulcer of esophagus without bleeding, M85.88 - Other specified disorders of bone density and structure, other site, R73.01 - Impaired fasting glucose Medications: Changed From trazodone try taking half a tablet or 25 mg at bedtime initially 50 mg PO BEDTIME PRN 30 tabs 0RF sleep To trazodone 50 mg PO BEDTIME PRN 30 tabs 1RF sleep
--- OUTSIDE RECORDS SUMMARY | 2025-01-25 14:56 | XMS_ITS | Patient Health Record ---
Author Organization [facility] Address [address] [place] [id number] Care Team Providers Care Engine Testing Supervisor Name Role Phone Nani Bocanegra Primary Care Provid er Unavailable Fahad Dupont Unavailable [phone] Reason For Referral No Information Medications Medication SIG (Take, Route, Frequency, Duration) Notes Start Date End Date Status Dicyclomine HCl 10 MG 1-2 capsules Orall y Four times a day prn abdominal bloating/cramps/discom fort for 30 day(s) 01/09/2020 Active Metoprolol Succinate ER 100 MG TK 1 T PO D Oral for 90 Active Simvastatin 40 MG TK 1 T PO D Oral for 90 Active Lisinopril 10 MG TK 1 T PO D Oral for 90 Active Nitrofurantoin Monohyd Macro 100 MG TK 1 C PO BID FOR 7 DAYS Oral for 7 Not-Taking buPROPion HCl ER (XL) 300 MG TK 1 T PO QAM Oral for 90 Active LORazepam 1 MG (Schedule IV Drug) T K 1 T PO QD PRN FOR ANXIETY Oral for 28 Active Fish Oil 1000 MG 1 capsule Orally Onc e a day for 30 day(s) Active Aspirin 81 81 MG 1 tablet Orally Once a day for 30 day(s) Active Omeprazole 20 MG TK ONE C PO QD Oral for 15 Not-Taking Dicyclomine HCl 10 MG TK 1 C PO QID B ME ALS AND ATN Oral for 30 Not-Taking Immunizations Vaccine Route Administration Date Status Comme nts Influenza Unknown 06/07/2019 Administered Influenza Unknown 06/07/2019 Administered Influenza Unknown 06/07/2019 Administered Social History Tobacco Use: Social History Observation Description Date Details (start date - stop date) Former Smoker NA - NA Tobacco Use/Smoking Question Answer Notes Patient is a former smoker When did you stop smoking? 16 How long has it been since you last smoked? > 10 years Alcohol Screen Question Answer Notes Did you have a drink contain ing alcohol in the past year? Yes How often did you have a dri nk containing alcohol in the past year? Monthly or less (1 point) How many drinks did you have on a typical day when you were drinking in the past year? 3 or 4 drinks (1 point) How often did you have 6 or more drinks on one occasion in the past year? Never (0 point) Points 2 Interpretation Negative Section Notes: Nonsmoker; no sig alcohol Problems Problem Type SNOMED Code ICD Code Onset Dates Problem Status W/U Status Risk Notes Problem 491314788 Encounter for screening for malignant neoplasm of colon (Z12.11) Active confirmed Problem 138637920 Abdominal bloating (R14.0) Active confirmed Problem 55480307 Abdominal pain, epigastric (R10.13) Active confirmed Problem 81117065 Irritable bowel syndrome, unspecified type (K58.9) Active confirmed Plan Of Treatment Pending Test Test Name Order Date GI BIOPSY 03/27/2020 Future Test Test Name Order Date UPPER GI ENDOSCOPY 01/09/2020 COLONOSCOPY 01/09/2020 Insurance Providers Payer Name Payer Address Payer Phone Subscriber Number Group Number Insured Name Patient Relationship to Insured Coverage Start Date Coverage End Date [employer] [place] [address] [address] [place] [address] [id number] GISELLE ROTH Self - patient is the insured Medical (General) History Medical History History ICD Code Denies DM,CVA,Lung disease,renal disease [place] in 2003--reportedly had a balloon ang ioplasty Negative colonoscopy in 06/2010 Anxiety HTN Hyperlipidemia Surgical History Surgery Date(Month/Year) Tubal ligation Tonsillectomy
== END 2025-01-25 13:26 | disposition home or self-care (01) ==
LOC: HO.HMCC 12:35
PROVIDERS: PCP Internal Medicine; Visit Provider Internal Medicine
DX: Z00.01 Encounter for general adult medical examination with abnormal findings (principal); M85.88 Other specified disorders of bone density and structure, other site; I10 Essential (primary) hypertension; I25.10 Atherosclerotic heart disease of native coronary artery without angina pectoris; F41.9 Anxiety disorder, unspecified; F32.A Depression, unspecified; Z86.0100 Personal history of colon polyps, unspecified; R73.01 Impaired fasting glucose; K22.10 Ulcer of esophagus without bleeding; K21.9 Gastro-esophageal reflux disease without esophagitis; Z71.89 Other specified counseling; Z00.00 Encounter for general adult medical examination without abnormal findings

== ENCOUNTER → 2025-01-25 12:35 | Outpatient (BNVA) | payer MEDICARE, SELFPAY | PROVIDERS: PCP Internal Medicine; Visit Provider Internal Medicine | DX: Z00.01 Encounter for general adult medical examination with abnormal findings (principal); M85.88 Other specified disorders of bone density and structure, other site; I10 Essential (primary) hypertension; I25.10 Atherosclerotic heart disease of native coronary artery without angina pectoris; F41.9 Anxiety disorder, unspecified; F32.A Depression, unspecified; R73.01 Impaired fasting glucose; K22.10 Ulcer of esophagus without bleeding; K21.9 Gastro-esophageal reflux disease without esophagitis; Z71.89 Other specified counseling | CPT/HCPCS: 96127; 99397; 99497 ==

== ENCOUNTER 2025-02-07 13:37 | Outpatient (REF) | payer MEDICARE, SELFPAY ==
--- NOTE | ~2025-02-07 | MM_ITS ---
EXAMINATION: MM SCREENING DIGITAL BREAST TOMOSYNTHESIS, BILATERAL CLINICAL INFORMATION: Screening. Asymptomatic. COMPARISON: Mammography: Comparison is made with available priors TECHNIQUE: Digital breast mammography with tomosynthesis is performed in both the craniocaudal and mediolateral oblique views along with computer-aided detection (CAD). FINDINGS: There are scattered areas of fibroglandular density (ACR BI-RADS breast composition Category b). There are no significant masses, abnormal calcifications, or other abnormalities. MM/MM tomosynthesis screening BI IMPRESSION: No mammographic evidence of malignancy. ASSESSMENT: BI-RADS BI-RADS 1 - Negative RECOMMENDATION: Routine annual mammography screening. 1 year F/U This examination should not preclude the clinical evaluation of a suspicious palpable abnormality. This patient's information was entered into a reminder system with a target due date for their next mammogram. Electronically signed by: Brianna Viveros DO 02/21/2025 10:57 AM EDT
--- NOTE | ~2025-02-07 | MM_ITS ---
EXAMINATION: DXA BONE DENSITY AXIAL HISTORY: M85.88 - Other specified disorders of bone density and structure, other ... TECHNIQUE: VDI Space Dual energy absorptiometry (DEXA) of the lumbar spine, total left hip, and femoral neck was performed. COMPARISON: Comparison is made with the prior examination dated 01/06/2022. FINDINGS: The bone mineral density of the lumbar spine is 0.967 g/cm2, corresponding to a T-score of -1.9, and a Z-score of -0.4. This is indicative of osteopenia. This represents a BMD change of -0.5% compared to the prior exam. This is not statistically significant. The bone mineral density of the left total hip is 0.910 g/cm2, corresponding to a T-score of -0.8, and a Z-score of 0.4. This is indicative of normal bone mineral density. This represents a BMD change of -3.4% compared to the prior exam. This is not statistically significant. The bone mineral density of the left femoral neck is 0.852 g/cm2, corresponding to a T-score of -1.3, and a Z-score of 0.1. This is indicative of osteopenia. This represents a BMD change of -5.2% compared to the prior exam. FRACTURE RISK: The FRAX index suggests a ten year probability of major osteoporotic fracture of 5.1%, and of hip fracture 0.6%. MM/XR DEXA axial skeleton IMPRESSION: Based on bone mineral density, and according to World Health Organization (WHO) criteria, the diagnosis is consistent with osteopenia. Statistically, 68% of repeat scans fall within 1 SD (+/- 0.010 g/cm2 for AP spine L1-L4) and 1 SD (+/- 0.012 g/cm2 for femur total) FRAX is a trademark of the [employer] [facility] [employer] [facility], a World Health Organization (WHO) Collaborating Center. Electronically signed by: Fahad Ferrera MD 02/07/2025 02:42 PM EDT
--- OUTSIDE RECORDS SUMMARY | 2025-02-07 14:27 | XMS_ITS | Patient Health Record ---
Author Organization [facility] Address [address] [place] [id number] Care Team Providers Care Offset Plate Preparation Supervisor Name Role Phone Nani Bocanegra Primary Care Provid er Unavailable Fahad Dupont Unavailable [phone] Reason For Referral No Information Medications Medication [...] Problem Status W/U Status Risk Notes Problem 144179422 Encounter for screening for malignant neoplasm of colon (Z12.11) Active confirmed Problem 429582547 Abdominal bloating (R14.0) Active confirmed Problem 82891220 Abdominal pain, epigastric (R10.13) Active confirmed Problem 72459531 Irritable bowel syndrome, unspecified type (K58.9) Active confirmed Plan Of Treatment Pending Test Test Name Order Date GI BIOPSY 03/27/2020 Future Test Test Name Order Date UPPER GI ENDOSCOPY 01/09/2020 COLONOSCOPY 01/09/2020 Insurance Providers Payer Name Payer Address Payer Phone Subscriber Number Group Number Insured Name Patient Relationship to Insured Coverage Start Date Coverage End Date [employer] [place] [address] [address] [place] [address] [id number] GISELLE ROTH Self - patient is the insured Medical (General) History Medical History History ICD Code Denies DM,CVA,Lung disease,renal disease [place] in 2003--reportedly had a balloon ang ioplasty Negative colonoscopy in 06/2010 Anxiety HTN Hyperlipidemia Surgical History Surgery Date(Month/Year) Tubal ligation Tonsillectomy
--- OUTSIDE RECORDS SUMMARY | 2025-02-07 14:27 | XMS_ITS | Clinical Summary ---
Author Organization [facility] Address [address] [facility] [address] [place] [address] Care Team Providers Care Tile Roofer Name Role Phone Unavailable Primary Care Provider Unavailabl e Immunizations Immunization Administration Dates Next Due Influenza High-dose Quadriva [...] 2024 09/30/2022, 12/15/2021, 05/15/2021, Additional history exists DTaP/Tdap/Td Vaccines (2 - Td or Tdap) 01/18/2025 01/18/2015 Influenza Vaccine (#1) 2025 2, 06/02/2021, 04/30/2020, Additional history exists RSV Patients and Patients Aged 60 years [...] patient's age to complete this topic Meningococcal B Vaccine Aged Out No l onger eligible based on patient's age to complete this topic Meningococcal Vaccine Aged Out No josafat lolis eligible based on patient's age to complete this topic RSV under 20 months Aged Out No longe r eligible based on patient's age to complete this topic Rotavirus Vaccines Aged Out No longer eligible based on patient's age to complete this topic Insurance [facility] [employer] (O D-SNP) [place] [id number]
== END 2025-02-07 13:38 | disposition home or self-care (01) ==
LOC: HO.MAMMO 13:37
PROVIDERS: PCP Internal Medicine; Visit Provider Internal Medicine
DX: Z12.31 Encounter for screening mammogram for malignant neoplasm of breast (principal); Z13.820 Encounter for screening for osteoporosis; M85.88 Other specified disorders of bone density and structure, other site; Z78.0 Asymptomatic menopausal state
CPT/HCPCS: 77063; 77067; 77080

== ENCOUNTER → 2025-02-07 13:45 | Outpatient (BNV) | payer MEDICARE, SELFPAY | PROVIDERS: PCP Internal Medicine; Visit Provider Radiology Diagnostic Radiology | DX: E28.39 Other primary ovarian failure (principal) | CPT/HCPCS: 77080 ==

== ENCOUNTER 2025-02-14 08:12 | Outpatient (REF) | payer MEDICARE, SELFPAY ==
--- OUTSIDE RECORDS SUMMARY | 2025-02-14 08:15 | XMS_ITS | Clinical Summary ---
Author Organization [facility] Address [address] [facility] 7 [place] [address] Care Team Providers Care Wet Process Miller Head Name Role Phone Unavailable Primary Care Provider [...] patient's age to complete this topic Insurance [facility] OPTIONS (O D-SNP) [place] [id number]
[2025-02-14 09:23] LABS: Alanine Aminotransferase 18 U/L (0-31); Anion Gap 8 (12-20); Aspartate Amino Transferase 21 U/L (5-31); Blood Urea Nitrogen 13 mg/dL (9-16); Calcium 9.1 mg/dL (8.4-10.2); Carbon Dioxide 26 mmol/L (22-29); Chloride 111 mmol/L (96-108); Cholesterol 181 mg/dL (<200); Estimated Glomerular Filt Rate > 60; HDL Cholesterol 56 mg/dL (>40); Potassium 4.2 mmol/L (3.3-5.1); Sodium 141 mmol/L (135-145); Triglycerides 105 mg/dL (<150)
[2025-02-17 08:24] LABS: TS Negative Control Passed; TS Panel A 3; TS Panel B 0; TS Positive Control Passed; TSpotTB Negative (Negative)
== END 2025-02-14 08:13 | disposition home or self-care (01) ==
LOC: HO.LAB 08:12
PROVIDERS: PCP Internal Medicine; Referring Provider Internal Medicine Cardiovascular Disease; Visit Provider Internal Medicine
DX: Z11.1 Encounter for screening for respiratory tuberculosis (principal); I25.10 Atherosclerotic heart disease of native coronary artery without angina pectoris; I10 Essential (primary) hypertension; K21.00 Gastro-esophageal reflux disease with esophagitis, without bleeding; R73.01 Impaired fasting glucose; M85.88 Other specified disorders of bone density and structure, other site
CPT/HCPCS: 36415; 80048; 80061; 82306; 84450; 84460; 86481

== ENCOUNTER 2025-02-16 13:37 | Outpatient (AMB) | payer MEDICARE, SELFPAY ==
--- NOTE | 2025-02-16 13:41 | MHC.OFFVIS ---
Vital Signs 02/16/25 13:42 Height 5 ft 3 in Weight 161 lb BMI 28.5 BP 132/100 H Blood Pressure Location Lt brachial Position Sitting Pulse 70 Pulse Source Pulse Oximeter Intake Visit Reasons: 3 month f/up dr waters pt Allergies No Known Allergies Allergy (Verified 01/29/25 21:40) Medication List - Last Reconciled 02/16/25 by Georgi Bass NP atorvastatin 40 mg PO DAILY buspirone 5 mg PO TID cholecalciferol (vitamin D3) 25 mcg PO DAILY dorzolamide-timolol 22.3-6.8 mg/mL 1 drp ophthalmic (eye) BID esomeprazole magnesium 20 mg PO DAILY 90 days famotidine (Pepcid) 20 mg PO BEDTIME latanoprost 0.005% 1 drp ophthalmic (eye) DAILY lisinopril 30 mg PO DAILY magnesium 250 mg PO DAILY metoprolol succinate ER 100 mg PO DAILY NS trazodone 50 mg PO BEDTIME PRN HPI Comments Details: This is a 70-year-old female patient coming in for a follow-up visit. Patient with history of hypertension, hyperlipidemia, and coronary artery disease. Patient today reports feeling fatigued with no associated symptoms of exertional chest pain, shortness of breath, palpitations, dizziness, orthopnea, PND, leg edema, presyncope, or syncope. 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 Patient was previously on aspirin for the coronary artery disease however due to her GI issues, patient was no longer on it. Patient states that her blood pressures has been elevated however is not too keen on going up on the lisinopril as she believes that her GI issues started with the increasing lisinopril. Patient is otherwise reporting compliance with all her medications. [facility] Medical History CAD (coronary artery disease) Tubular adenoma of colon Myocardial infarct Impaired fasting glucose History of adenomatous polyp of colon Osteopenia of lumbar spine Insomnia disorder, with non-sleep disorder mental comorbidity Dyslipidemia Anxiety and depression Postmenopause Positional lightheadedness HTN (hypertension) Surgical History History of esophagogastroduodenoscopy (EGD) Hx of colonoscopy H/O tubal ligation Hx of tonsillectomy Hx of cardiac cath Family History Father CVD (cardiovascular disease) Substance use disorder Mother CVD (cardiovascular disease) Brother Substance use disorder Mental health disorder Son Substance use disorder Social History Housing: House Are you a primary assisted living care manager to a significant other at home: No Do you presently have visiting nurse or other home services: No Alcohol intake: never Patient Tobacco Use Status: Former Tobacco user e-Cigarette/Vaping Use: Never Used service: No Current occupational status: employed and retired Cognitive needs: No Hearing needs: No Vision needs: Yes Review of Systems Const Denies weakness ENT Denies dizziness Card Denies chest pain, Denies chest pain with activity, Denies syncope, Denies rapid heart rate, Denies pedal edema, Denies edema, Denies leg edema, Denies lightheadedness, Denies palpitations, Denies dyspnea, Denies dyspnea on exertion and Denies orthopnea Resp Denies cough, Denies dyspnea and Denies dyspnea on exertion GI Denies hematochezia and Denies change in stool character Musc Denies abnormal gait, Denies muscle cramps, Denies muscle weakness, Denies numbness, Denies radiating pain into limb and Denies tingling Skin/Breast Reports erythema (face) Neuro Denies abnormal gait, Denies dizziness, Denies syncope, Denies numbness, Denies tingling and Denies weakness Endo Denies palpitations Physical Exam Vital Signs: Last Vital Signs Pulse 70 02/16/25 13:42 BP 132/100 H 02/16/25 13:42 BMI result Body Mass Index 28.5 Const General: cooperative, healthy appearing, comfortable and no acute distress Orientation/consciousness: patient oriented x3 HEENT Head: Yes normal to inspection Neck Neck: Yes normal visual inspection, Yes trachea midline and Yes supple Chest Chest palpation & inspection: normal inspection of the chest Resp Effort & Inspection: normal respiratory effort Auscultation: clear to auscultation bilaterally, no crackles, no rales, no rhonchi and no wheezes Cardio Jugular venous distension: no JVD Palpation: normal PMI Rate: regular rate Rhythm: regular rhythm Heart sounds: S1 normal heart sound present, S2 normal heart sound present, no click, no gallops, no murmurs and no rubs Peripheral pulses: Peripheral pulses 2+ throughout GI Inspection: Yes normal to inspection Palpation (GI): Soft to palpation Auscultation: normal bowel sounds Skin General skin exam: no rashes or lesions noted Neuro General: patient oriented x3 Extrem General: Yes normal to inspection, No no pedal edema and No calf tenderness Psych Appearance: grossly normal Mental Status: mental status grossly normal Speech and movement: Normal speech and movement present Assessment & Plan Assessment & Plan (1) CAD (coronary artery disease): Code(s): I25.10 - Atherosclerotic heart disease of [place] coronary artery without angina pectoris Category: Medical Plan: History of cardiac catheterization in 2014 that showed [id number] proximal left circumflex stenosis. Patient was previously on aspirin therapy for this however given her GI issues, patient had stopped taking it. Patient will resume this given the healing of her ulcers pending GI approval. Patient is on statin therapy however due to developing hip pain from it she is taking it every other day for now. Most recent LDL at 104, not within goal of LDL less than 70. We will add Zetia to her regimen. We will repeat a lipid profile. Clinically patient is reporting some feeling of fatigue otherwise no chest pain or shortness of breath. If patient's cholesterol levels continue to be uncontrolled, we will plan for a coronary CTA. Patient agreeable with this plan. (2) Hypertension: Code(s): I10 - Essential (primary) hypertension Category: Medical Qualifiers: Hypertension type: primary hypertension Qualified Code(s): I10 - Essential (primary) hypertension Plan: Blood pressure is elevated today. Looking back at the history, patient's blood pressures has been elevated. Patient is currently on metoprolol and lisinopril therapy. Patient thinks that she has had GI issues from lisinopril and therefore is hesitant about increasing the dose. We will start patient on hydralazine therapy. We will check labs. Advised monitoring blood pressures at home and maintaining a log. We will bring patient back for a blood pressure check with the nurse in 1 month. Ideally, blood pressure goal less than 130/80. (3) Dyslipidemia: Code(s): E78.5 - Hyperlipidemia, unspecified Category: Medical Plan: As above. Advised heart healthy diet, regular exercise, med compliance, and aggressive management of vascular risk factors. Follow-up in 3-4 months. In the interim, patient will call the office with any concerns or change in symptoms. Advised seeking ER care in case of exertional chest pain not resolved with rest. This note was generated using voice recognition software. While every effort has been made to ensure accuracy and proper natural resource technician, there may be occasional errors that could affect the content or meaning of the described symptoms. Orders: Orders Lipid Panel 3 Months E78.5 - Hyperlipidemia, unspecified, I25.10 - Atherosclerotic heart disease of marshall coronary artery without angina pectoris Basic Metabolic Panel 1 Month I10 - Essential (primary) hypertension Medications: New hydralazine 25 mg PO BID 90 tabs 3RF ezetimibe 10 mg PO DAILY 90 tabs 3RF Coding Level of Care Code Est Pt Level 4 (63272) Complex EM visit Add On G2211 Diagnoses CAD (coronary artery disease) I25.10 Primary hypertension I10 Hypertension type: primary hypertension Dyslipidemia E78.5 Time Spent (min) 31 Comment Time spent in reviewing the chart, test results, assessment, counseling and documentation.
--- OUTSIDE RECORDS SUMMARY | 2025-02-16 13:41 | XMS_ITS | Patient Health Record ---
Author Organization [facility] Address [address] [place] [id number] Care Team Providers Care Magneto Repairer Name Role Phone Nani Bocanegra Primary Care Provid er Unavailable Fahad Dupont Unavailable [phone] Reason For Referral No Information Medications Medication [...] Problem Status W/U Status Risk Notes Problem [id number] Encounter for screening for malignant neoplasm of colon (Z12.11) Active confirmed Problem 136687201 Abdominal bloating (R14.0) Active confirmed Problem 19827227 Abdominal pain, epigastric (R10.13) Active confirmed Problem [id number] Irritable bowel syndrome, unspecified type (K58.9) Active confirmed Plan Of Treatment Pending Test Test Name Order Date GI BIOPSY 03/27/2020 Future Test Test Name Order Date UPPER GI ENDOSCOPY 01/09/2020 COLONOSCOPY 01/09/2020 Insurance Providers Payer Name Payer Address Payer Phone Subscriber Number Group Number Insured Name Patient Relationship to Insured Coverage Start Date Coverage End Date [employer] [place] [address] [address] [place] [address] [id number] GISELLE ROTH Self - patient is the insured Medical (General) History Medical History History ICD Code Denies DM,CVA,Lung disease,renal disease [place] in 2003--reportedly had a balloon ang ioplasty Negative colonoscopy in 06/2010 Anxiety HTN Hyperlipidemia Surgical History Surgery Date(Month/Year) Tubal ligation Tonsillectomy
--- OUTSIDE RECORDS SUMMARY | 2025-02-16 13:41 | XMS_ITS | Clinical Summary ---
Author Organization [employer] Address [address] [facility] 7 [place] [address] Care Team Providers Care Medical Transcriptionist Name Role Phone Unavailable Primary Care Provider [...] patient's age to complete this topic Insurance [facility] LONG TERM OPTIONS (O D-SNP) [place] [id number]
[2025-02-16 13:42] VITALS: BP 132/100; PULSE 70; BMI 28.5
== END 2025-02-16 14:22 | disposition home or self-care (01) ==
LOC: HO.HCS 13:38
PROVIDERS: PCP Internal Medicine
DX: I25.10 Atherosclerotic heart disease of native coronary artery without angina pectoris (principal); I10 Essential (primary) hypertension; E78.5 Hyperlipidemia, unspecified
CPT/HCPCS: 99214; G2211

== ENCOUNTER → 2025-02-16 13:37 | Outpatient (BNVA) | payer MEDICARE, SELFPAY | PROVIDERS: PCP Internal Medicine | DX: I25.10 Atherosclerotic heart disease of native coronary artery without angina pectoris (principal); I10 Essential (primary) hypertension; E78.5 Hyperlipidemia, unspecified | CPT/HCPCS: 99212 ==

== ENCOUNTER 2025-06-05 08:46 | Outpatient (AMB) | payer MEDICARE, SELFPAY ==
--- NOTE | 2025-06-05 08:58 | A.OFFVIS_ITS ---
Vital Signs 06/05/25 08:59 Height 5 ft 3 in Weight 162 lb BMI 28.7 BP 132/70 Blood Pressure Location Rt brachial Position Sitting Pulse 70 Pulse Source Pulse Oximeter Pulse Oximetry (%) 98 Oxygen Delivery Method Room Air Intake Visit Reasons: 6m Intake Note: Est pt for mgmt of GERD w/ esophagitis. CC: C.O. increased mucus and phlegm production and she feels she is having to clear her throat more often. Pt denies any heartburn or abd pain at this time. States that she had not been getting the esomeprazole from the pharmacy so she has not been taking it. She states she has been doing fairly well despite this. Internet Marketing Coordinator Required: No Accompanied by: Self / Same As Patient Allergies No Known Allergies Allergy (Verified 01/29/25 21:40) HPI HPI 6m: Details: LAST VISIT: GERD (gastroesophageal reflux disease) Erosive esophagitis History of adenomatous polyp of colon Tubular adenoma of colon Postprandial abdominal bloating Plan Patient will continue taking Nexium in the morning and may take famotidine at bedtime. Avoid dietary triggers and late night snacking. Staying upright for minimum 3 hours after meals discussed with patient. Follow-up in the office in 3 -4 months. Patient will call us if she will have any GI concerning symptoms. Patient is agreeable to this plan and verbalizes understanding of instructions. She was given the opportunity to ask questions and all questions answered. ? Thank you for allowing me to participate in her care Refilled famotidine (Pepcid) 20 mg PO BEDTIME 30 tabs 4RF K21.9 TODAY'S VISIT: Patient is here today for follow-up. Patient reports that she has been doing fairly well since last visit. However patient reports that in the past couple months her script for Nexium was not filled. Patient has been having increased phlegm and feels like she has to clear her throat more. She denies having any acid reflux. Denies dyspepsia, dysphagia or odynophagia. Patient is taking famotidine at bedtime. Patient denies any nausea or vomiting. Reports that she is moving her bowels well. Denies melena, hematochezia, unintentional weight loss or ribbon like stools. Patient denies having any other GI concerning symptoms. [facility] Medical History CAD (coronary artery disease) Tubular adenoma of colon Myocardial infarct Impaired fasting glucose History of adenomatous polyp of colon Osteopenia of lumbar spine Insomnia disorder, with non-sleep disorder mental comorbidity Dyslipidemia Anxiety and depression Postmenopause Positional lightheadedness HTN (hypertension) Surgical History History of esophagogastroduodenoscopy (EGD) Hx of colonoscopy H/O tubal ligation Hx of tonsillectomy Hx of cardiac cath Family History Father CVD (cardiovascular disease) Substance use disorder Mother CVD (cardiovascular disease) Brother Substance use disorder Mental health disorder Son Substance use disorder Social History Housing: House Are you a primary foster care therapist to a significant other at home: No Do you presently have visiting nurse or other home services: No Alcohol intake: never Patient Tobacco Use Status: Former Tobacco user e-Cigarette/Vaping Use: Never Used service: No Current occupational status: employed and retired Cognitive needs: No Hearing needs: No Vision needs: Yes Review of Systems Const Denies weight gain and Denies weight loss ENT Reports no additional complaints, Denies dysphagia and Denies odynophagia Card Reports no additional complaints Resp Reports no additional complaints GI Denies abdominal pain, Denies belching, Denies melena, Reports bloating, Denies change in bowel habits, Denies dysphagia, Denies excessive flatus, Denies dyspepsia, Denies heartburn, Denies diarrhea, Denies loose stools, Denies nausea, Denies odynophagia and Denies vomiting Reports no additional complaints Musc Reports no additional complaints Neuro Reports no additional complaints Psych Reports no additional complaints Endo Reports no additional complaints Physical Exam Vital Signs: Last Vital Signs Pulse 70 06/05/25 08:59 BP 132/70 06/05/25 08:59 Pulse Ox 98 06/05/25 08:59 Oxygen Delivery Method Room Air 06/05/25 08:59 BMI result Body Mass Index 28.7 Const General: healthy appearing, no acute distress and well developed Nutritional Appearance: well nourished Orientation/consciousness: patient oriented x3 Resp Effort & Inspection: normal respiratory effort, able to speak in complete sentences, no tracheal deviation and symmetric chest movement Auscultation: clear to auscultation bilaterally Cardio Rate: regular rate GI Inspection: Yes normal to inspection and No distended Palpation (GI): Soft to palpation, not firm, nontender and No hepatosplenomegaly present Auscultation: normal bowel sounds General: Yes no CVA tenderness Back/Spine/Pelvis Back: no CVA tenderness Skin General skin exam: elasticity normal, turgor normal and dry skin Neuro General: patient oriented x3 Psych Appearance: grossly normal Mental Status: mental status grossly normal Assessment & Plan Assessment & Plan (1) GERD (gastroesophageal reflux disease): Code(s): K21.9 - Gastro-esophageal reflux disease without esophagitis Category: Medical Qualifiers: Esophagitis presence: esophagitis presence not specified Qualified Code(s): K21.9 - Gastro-esophageal reflux disease without esophagitis (2) Tubular adenoma of colon: Code(s): D12.6 - Benign neoplasm of colon, unspecified Category: Medical Plan Patient can take famotidine as needed. She will start taking his omeprazole again. 20 mg dose sent to pharmacy. Continue avoiding dietary triggers and late night snacking. Staying upright for minimum 3 hours after meals discussed with patient. Increase fluid intake and activity to promote bowel motility. Patient will follow-up in the office in 6 months. Patient will call us if she will have any GI concerning symptoms. She is agreeable to this plan and verbalizes understanding of instructions. She was given the opportunity to ask questions and all questions answered. Thank you for allowing me to participate in her care Medications: New esomeprazole magnesium (Nexium) 20 mg PO DAILY 90 caps 4RF K21.9 - Gastro- esophageal reflux disease without esophagitis Coding Level of Care Code Est Pt Level 3 (04066) Diagnoses Gastroesophageal reflux disease, unspecified whether esophagitis present K21.9 Esophagitis presence: esophagitis presence not specified Tubular adenoma of colon D12.6 Time Spent (min) 25 Comment 15 minutes spent with patient and additional 10 minutes spent reviewing her records
[2025-06-05 08:59] VITALS: BP 132/70; PULSE 70; O2SAT 98; BMI 28.7
--- OUTSIDE RECORDS SUMMARY | 2025-06-05 09:15 | XMS_ITS | Patient Health Record ---
Author Organization [facility] Address [address] [place] [id number] Care Team Providers Care Plaster Mixer Name Role Phone Nani Bocanegra Primary Care Provid er Unavailable Fahad Dupont Unavailable [phone] Reason For Referral No Information Medications Medication SIG (Take, Route, Frequency, Duration) Notes Start Date End Date Status Dicyclomine HCl 10 MG 1-2 capsules Orall y Four times a day prn abdominal bloating/cramps/discom fort; Duration: 30 day(s) 01/09/2020 Active Metoprolol Succinate ER 100 MG TK 1 T PO D Oral; Duration: 90 Active Simvastatin 40 MG TK 1 T PO D Oral; Duration: 90 Active Lisinopril 10 MG TK 1 T PO D Oral; Duration: 90 Active Nitrofurantoin Monohyd Macro 100 MG TK 1 C PO BID FOR 7 DAYS Oral; Duration: 7 Not-Takin g buPROPion HCl ER (XL) 300 MG TK 1 T PO QAM Oral; Duration: 90 Active LORazepam 1 MG (Schedule IV Drug) T K 1 T PO QD PRN FOR ANXIETY Oral; Duration: 28 Active Fish Oil 1000 MG 1 capsule Orally Onc e a day; Duration: 30 day(s) Active Aspirin 81 81 MG 1 tablet Orally Once a day; Duration: 30 day(s) Active Omeprazole 20 MG TK ONE C PO QD Oral; Duration: 15 Not-Taking Dicyclomine HCl 10 MG TK 1 C PO QID B ME ALS AND ATN Oral; Duration: 30 Not-Taking Immunizations Vaccine Route Administration Date [...] Problem Status W/U Status Risk Notes Problem Screening for malignant neoplasm of colon ([id number]) Encounter for screening for malignant neoplasm of colon (Z12.11) Active confirmed Problem Abdominal bloating (004330786) Abdominal bloating (R14.0) Active confirmed Problem Epigastric pain (65463385) Abdominal pain, epigastric (R10.13) Active confirmed Problem Irritable bowel syndrome (68587487) Irritable bowel syndrome, unspecified type (K58.9) Active confirmed Plan Of Treatment Pending Test Test Name Order Date GI BIOPSY 03/27/2020 Future Test Test Name Order Date UPPER GI ENDOSCOPY 01/09/2020 COLONOSCOPY 01/09/2020 Insurance Providers Payer Name Payer Address Payer Phone Subscriber Number Group Number Insured Name Patient Relationship to Insured Coverage Start Date Coverage End Date [employer] [place] [address] [address] [place] [address] [id number] GISELLE ROTH Self - patient is the insured Medical (General) History Medical History History ICD Code Denies DM,CVA,Lung disease,renal disease [place] in 2003--reportedly had a balloon ang ioplasty Negative colonoscopy in 06/2010 Anxiety HTN Hyperlipidemia Surgical History Surgery Date(Month/Year) Tubal ligation Tonsillectomy
== END 2025-06-05 09:17 | disposition home or self-care (01) ==
LOC: HO.HGI 08:46
PROVIDERS: PCP Internal Medicine; Visit Provider Nurse Practitioner Family
DX: K21.9 Gastro-esophageal reflux disease without esophagitis (principal); D12.6 Benign neoplasm of colon, unspecified
CPT/HCPCS: 99213

== ENCOUNTER → 2025-06-05 08:46 | Outpatient (BNVA) | payer MEDICARE, SELFPAY | PROVIDERS: PCP Internal Medicine; Visit Provider Nurse Practitioner Family | DX: K21.9 Gastro-esophageal reflux disease without esophagitis (principal); D12.6 Benign neoplasm of colon, unspecified | CPT/HCPCS: 99212 ==

== ENCOUNTER 2025-06-18 08:46 | Outpatient (REF) | payer MEDICARE, SELFPAY ==
[2025-06-18 09:48] LABS: Anion Gap 12 (12-20); Blood Urea Nitrogen 9 mg/dL (9-16); Calcium 9.4 mg/dL (8.4-10.2); Carbon Dioxide 25 mmol/L (22-29); Chloride 110 mmol/L (96-108); Cholesterol 189 mg/dL (<200); Estimated Glomerular Filt Rate > 60; HDL Cholesterol 57 mg/dL (>40); Potassium 4.1 mmol/L (3.3-5.1); Sodium 143 mmol/L (135-145); Triglycerides 136 mg/dL (<150)
== END 2025-06-18 08:47 | disposition home or self-care (01) ==
LOC: HO.LAB 08:46
PROVIDERS: PCP Internal Medicine
DX: I25.10 Atherosclerotic heart disease of native coronary artery without angina pectoris (principal); E78.5 Hyperlipidemia, unspecified; I10 Essential (primary) hypertension
CPT/HCPCS: 36415; 80048; 80061

== ENCOUNTER 2025-06-20 13:42 | Outpatient (AMB) | payer MEDICARE, SELFPAY ==
[2025-06-20 13:54] VITALS: BP 130/68; PULSE 71; BMI 28.5
--- NOTE | 2025-06-20 13:54 | A.OFFVIS_ITS ---
Vital Signs 06/20/25 13:54 Height 5 ft 3 in Weight 160 lb 14.999 oz BMI 28.5 BP 130/68 Blood Pressure Location Lt brachial Position Sitting Pulse 71 Pulse Source Pulse Oximeter Intake Visit Reasons: 4 mth labs Allergies No Known Allergies Allergy (Verified 01/29/25 21:40) Medication List - Last Reconciled 06/20/25 by Georgi Bass NP buspirone 5 mg PO TID cholecalciferol (vitamin D3) 25 mcg PO DAILY dorzolamide-timolol 22.3-6.8 mg/mL 1 drp ophthalmic (eye) BID esomeprazole magnesium (Nexium) 20 mg PO DAILY ezetimibe 10 mg PO DAILY hydralazine 25 mg PO BID latanoprost 0.005% 1 drp ophthalmic (eye) DAILY lisinopril 30 mg PO DAILY magnesium 250 mg PO DAILY metoprolol succinate ER 100 mg PO DAILY NS trazodone 50 mg PO BEDTIME PRN HPI Comments Details: This is a 70-year-old female patient coming in for a follow-up visit. Patient with a history of hypertension, hyperlipidemia, and coronary artery disease. 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 Patient was previously on aspirin for coronary artery disease however due to GI issues patient was no longer in it. Patient was also on statin therapy but due to developing he pain from this, patient was trying it to every other day and is now off it. At the last visit, patient was started on Zetia therapy and we rechecked her lipid profile. Patient is otherwise reporting compliance with all her medications. [facility] Medical History CAD (coronary artery disease) Tubular adenoma of colon Myocardial infarct Impaired fasting glucose History of adenomatous polyp of colon Osteopenia of lumbar spine Insomnia disorder, with non-sleep disorder mental comorbidity Dyslipidemia Anxiety and depression Postmenopause Positional lightheadedness HTN (hypertension) Surgical History History of esophagogastroduodenoscopy (EGD) Hx of colonoscopy H/O tubal ligation Hx of tonsillectomy Hx of cardiac cath Family History Father CVD (cardiovascular disease) Substance use disorder Mother CVD (cardiovascular disease) Brother Substance use disorder Mental health disorder Son Substance use disorder Social History Housing: House Are you a primary healthcare administrative assistant to a significant other at home: No Do you presently have visiting nurse or other home services: No Alcohol intake: never Patient Tobacco Use Status: Former Tobacco user e-Cigarette/Vaping Use: Never Used service: No Current occupational status: employed and retired Cognitive needs: No Hearing needs: No Vision needs: Yes Review of Systems Const Denies weakness ENT Denies dizziness Card Reports no additional complaints, Denies chest pain, Denies chest pain with activity, Denies syncope, Denies rapid heart rate, Denies pedal edema, Denies edema, Denies leg edema, Denies lightheadedness, Denies palpitations, Denies dyspnea, Denies dyspnea on exertion and Denies orthopnea Resp Denies cough, Denies dyspnea and Denies dyspnea on exertion GI Denies hematochezia and Denies change in stool character Musc Denies abnormal gait, Denies muscle cramps, Denies muscle weakness, Denies numbness, Denies radiating pain into limb and Denies tingling Neuro Denies abnormal gait, Denies dizziness, Denies syncope, Denies numbness, Denies tingling and Denies weakness Endo Denies palpitations Physical Exam Vital Signs: Last Vital Signs Pulse 71 06/20/25 13:54 BP 130/68 06/20/25 13:54 BMI result Body Mass Index 28.5 Const General: cooperative, healthy appearing, comfortable and no acute distress Orientation/consciousness: patient oriented x3 HEENT Head: Yes normal to inspection Neck Neck: Yes normal visual inspection, Yes trachea midline and Yes supple Chest Chest palpation & inspection: normal inspection of the chest Resp Effort & Inspection: normal respiratory effort Auscultation: clear to auscultation bilaterally, no crackles, no rales, no rhonchi and no wheezes Cardio Jugular venous distension: no JVD Palpation: normal PMI Rate: regular rate Rhythm: regular rhythm Heart sounds: S1 normal heart sound present, S2 normal heart sound present, no click, no gallops, no murmurs and no rubs Peripheral pulses: Peripheral pulses 2+ throughout GI Inspection: Yes normal to inspection Palpation (GI): Soft to palpation Auscultation: normal bowel sounds Skin General skin exam: no rashes or lesions noted Neuro General: patient oriented x3 Extrem General: Yes normal to inspection, No no pedal edema and No calf tenderness Psych Appearance: grossly normal Mental Status: mental status grossly normal Speech and movement: Normal speech and movement present Assessment & Plan Assessment & Plan (1) CAD (coronary artery disease): Code(s): I25.10 - Atherosclerotic heart disease of [place] coronary artery without angina pectoris Category: Medical Plan: History of cardiac catheterization in 2014 that showed [id number] proximal left circumflex stenosis. Patient was started on aspirin therapy however was discontinued due to GI issues. Patient was also started on atorvastatin however patient developed some hip pain and was only taking it every other day. Today patient tells me that she is completely off it. Patient was started on Zetia therapy at her last visit. Recent lipid check shows LDL of 105 not within goal of LDL less than 70. We will add patient on bempedoic acid and repeat lipid profile in 3 months. Clinically stable and cardiac symptoms. We will consult with GI to see if patient can go back on low-dose aspirin therapy. (2) Hypertension: Code(s): I10 - Essential (primary) hypertension Category: Medical Qualifiers: Hypertension type: primary hypertension Qualified Code(s): I10 - Essential (primary) hypertension Plan: Blood pressure today is well-controlled. Log blood pressures is also stable averaging in the 110s. Continue current regimen with a blood pressure goal less than 130/80. Advised on low-salt diet. (3) Dyslipidemia: Code(s): E78.5 - Hyperlipidemia, unspecified Category: Medical Plan: As above. Advised heart healthy diet, regular exercise, med compliance, and aggressive management of vascular risk factors. Follow up in 6 months. In the interim, patient will call the office with any concerns or change in symptoms. This note was generated using voice recognition software. While every effort has been made to ensure accuracy and proper hydraulic chair assembler, there may be occasional errors that could affect the content or meaning of the described symptoms. Medications: New bempedoic acid 180 mg PO DAILY 90 tabs 3RF Coding Level of Care Code Tele Est Pt Level 4 (30753) Complex EM visit Add On G2211 Diagnoses CAD (coronary artery disease) I25.10 Primary hypertension I10 Hypertension type: primary hypertension Dyslipidemia E78.5 Time Spent (min) 32 Comment Time spent in reviewing the chart, test results, assessment, counseling and documentation.
--- OUTSIDE RECORDS SUMMARY | 2025-06-21 01:49 | XMS_ITS | Clinical Summary ---
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
== END 2025-06-20 14:19 | disposition home or self-care (01) ==
LOC: HO.HCS 13:43
PROVIDERS: PCP Internal Medicine
DX: I25.10 Atherosclerotic heart disease of native coronary artery without angina pectoris (principal); I10 Essential (primary) hypertension; E78.5 Hyperlipidemia, unspecified
CPT/HCPCS: 99214; G2211

== ENCOUNTER → 2025-06-20 13:42 | Outpatient (BNVA) | payer MEDICARE, SELFPAY | PROVIDERS: PCP Internal Medicine | DX: I10 Essential (primary) hypertension (principal); E78.5 Hyperlipidemia, unspecified; Z87.891 Personal history of nicotine dependence; I25.10 Atherosclerotic heart disease of native coronary artery without angina pectoris; I25.83 Coronary atherosclerosis due to lipid rich plaque | CPT/HCPCS: 99212 ==